=== PATIENT | female | born 1940 | race Caucasian/White ===

== ENCOUNTER → 2017-02-18 | Outpatient (CLI) | payer BC ==
[~2017-02-18] MED LIST: ASPI81TA28 PO; ATOR-14 PO; CYAN10005 PO; DIAZ2TAB PO; FLUV100T2 PO; HYDR12.55 PO; LACT12CR TOP; LEVO100T PO; LPT10 PO; LVX100 PO; MECL1TAB42 PO; MECL25TA2 PO; MELATAB2 PO; MELO7.5T5 PO; METF500T5 PO; METR0.754 TOP; MTRCR45 TOP; MULT60CA PO; ONDA4TAB46 SL; PROP80CA PO; PROP80TA2 PO; RSTOPS OP; ZOLP12.5 PO; ZOLP1TAB PO
[2017-02-18 11:46] LABS: ESTIMATED AVERAGE GLUCOSE 157 mg/dl; HA1C FLAG Normal (Normal)
[2017-02-18 12:07] LABS: BLOOD UREA NITROGEN 19 mg/dl (7-18); BUN/CREATININE RATIO 24.2 (10-20); CALCIUM 9.2 mg/dl (8.5-10.1); CARBON DIOXIDE 26 mmol/L (21-32); CHLORIDE 108 mmol/L (98-107); CHOLESTEROL 139 mg/dl (0-200); CREATININE 0.79 mg/dl (0.60-1.20); GLUCOSE 158 mg/dl (70-99); POTASSIUM 3.8 mmol/L (3.5-5.1); SODIUM 142 mmol/L (136-145)
[2017-02-18 12:20] LABS: CHOLESTEROL/HDL RATIO 2.9; HDL CHOLESTEROL 48 mg/dl; LDL CHOLESTEROL CALCULATED 62 mg/dl; THYROID STIMULATING HORMONE 0.169 uIu/ml (0.300-4.500); TRIGLYCERIDES 147 mg/dl (0-150); VERY LOW DENSITY LIPOPROT CALC 29 mg/dl
[2017-02-18 14:10] LABS: RATIO 9.9 mcg/mg (0-30.0)
== END | disposition home or self-care (01) ==
LOC: C.LABBC 09:07
PROVIDERS: ATTEND Internal Medicine
DX: E11.9 Type 2 diabetes mellitus without complications (principal); E78.5 Hyperlipidemia, unspecified; I10 Essential (primary) hypertension

== ENCOUNTER 2017-04-29 17:53 | Inpatient (IN) | payer BC, OTHER ==
[~2017-04-29] VITALS: Ht 157.5 cm; Wt 79.8 kg
[~2017-04-29 17:53] MED LIST changes: -LPT10 PO; -LVX100 PO; -MECL1TAB42 PO; -MELATAB2 PO; -MELO7.5T5 PO; -MTRCR45 TOP; -MULT60CA PO; -PROP80CA PO; -ZOLP1TAB PO
--- NOTE | 2017-04-29 18:03 | EMERGENCY ROOM VISIT NOTE ---
History Report prepared by Roland: Luis Collins Under the Supervision of: Dr. Cr Vann D.O. First contact with patient: 17:41 Chief Complaint: FALL Stated Complaint: FALL, WEAKNESS History of Present Illness The patient is a 76 year old female who presents to the Emergency Room with complaints of a sudden fall that occurred four days ago. She rates her pain as a 2/10 in severity. The patient is accompanied by her daughter who states that she has been falling recently. She states that the patient has been feeling weak in the legs, which causes her to fall. Her daughter states that she left her mother around 1600 four days ago. She states that she believes the patient fell some time around then. The patient states that she was unable to have the strength to get up. Her daughter states that her beeper and phone were not working. She reports that the patient has been crawling around the house and eventually got to a phone to call her daughter this afternoon. Her daughter states that the patient did not remember how she fell. Per EMS, the patient was found by the bathroom. The patient states that she was feeling "unsteady" and has been experiencing diarrhea up until the fall. She denies any discomfort, but believes she is experiencing mild lower back pain due to laying on the floor for four days. The patient denies taking any of her medication since the fall. She states that she typically urinates a lot. The patient admits to a history of macular degeneration, hernia, cholecystectomy, and digestion problems. She states that the hernia has not changed in size over time. The patient denies injury, new medications, blood thinners, tobacco or alcohol use, chest pain, and SOB. Source of History: patient Onset: four days ago Position: other (global) Symptom Intensity: 2/10 Quality: other (weak in legs) Timing: other (sudden) Associated Symptoms: + diarrhea, + weakness, No chest pain, No SOB Review of Systems See HPI for pertinent positives & negatives. A total of 10 systems reviewed and were otherwise negative. Past Medical & Surgical Medical Problems: (1) Arthritis (2) Cholecystitis (3) Hernia (4) Vertigo Surgical Problems: (1) H/O: hysterectomy (2) S/P cholecystectomy Family History Diabetes mellitus FH: cancer FH: heart disease Hypertension Seizures Social History Housing Status: lives alone Occupation Status: retired Current/Historical Medications Scheduled Aspirin (Aspirin Ec), 81 MG PO HS Atorvastatin (Atorvastatin Calcium), 10 MG PO DAILY Cyanocobalamin (Vitamin B-12), 1,000 MCG PO QAM Fluvoxamine Maleate (Fluvoxamine Maleate), 100 MG PO TID Hydrochlorothiazide (Hydrochlorothiazide), 12.5 MG PO QAM Levothyroxine Sodium (Synthroid), 100 MCG PO HS Metformin Hcl Er (Glucophage Er), 1,000 MG PO QAM Multiple Vitamins W/ Minerals (Preservision Areds 2), 1 CAP PO BID Propranolol Hcl (Propranolol Hcl Er), 80 MG PO HS Zolpidem Tartrate (Ambien Cr), 12.5 MG PO HS Scheduled PRN Diazepam (Valium), 2 MG PO BID PRN for VERTIGO/TREMORS Meclizine Hcl (Meclizine Hcl), 1 TAB PO TID PRN for Dizziness or Vertigo Meloxicam (Mobic), 7.5 MG PO DAILY PRN for Pain Metronidazole Hcl (Metronidazole), 1 APPLN TOP BID PRN for Allergies Coded Allergies: No Known Allergies (Unverified , 02/14/16) Physical Exam Vital Signs Date Time Temp Pulse Resp B/P (MAP) Pulse Ox O2 Delivery O2 Flow Rate FiO2 04/29/17 23:05 81 18 95 Room Air 04/29/17 22:32 76 04/29/17 21:52 75 18 152/73 98 Room Air 04/29/17 20:15 70 18 148/72 97 Room Air 04/29/17 19:32 65 20 140/73 96 Room Air 04/29/17 19:00 67 20 143/78 96 Room Air 04/29/17 17:55 36.6 72 20 145/72 96 Room Air 04/29/17 17:55 96 Room Air Physical Exam GENERAL: Patient is awake, alert, and in no acute distress. Patient is resting comfortably and showing no signs of anxiety EYES: The conjunctivae are clear. The pupils are round and reactive. EARS, NOSE, MOUTH AND THROAT: The nose is without any evidence of any deformity. Mucous membranes are dry tongue is midline NECK: The neck is nontender and supple. RESPIRATORY: Normal respiratory effort is noted there is no evidence of wheezing rhonchi or rales CARDIOVASCULAR: Regular rate and rhythm noted there no murmurs rubs or gallops normal S1 normal S2 GASTROINTESTINAL: Mildly distended but soft. There was a incisional hernia in light lower quadrant, easily reducible. No guard PELVIS: The Pelvis is stable. No tenderness to palpation is noted. BACK: Lower lumbar tenderness, Normal range of motion. MUSCULOSKELETAL/EXTREMITIES: No deformity or decrease in ROM of lower extremity. Ecchymosis of lateral left hip SKIN: There is no obvious evidence of any rash. There are no petechiae, pallor or cyanosis noted. NEUROLOGIC: Patient is awake alert and oriented x3 strength is symmetric but diminished. Medical Decision & Procedures ER Provider Diagnostic Interpretation: Radiology results as stated below per my review and radiologist interpretation: PELVIS 1 OR 2 VIEW ROUTINE CLINICAL HISTORY: fall. Left hip pain. COMPARISON STUDY: Left hip 10/12/2011. FINDINGS: Partially visualized lumbosacral posterior fusion hardware. No fracture or dislocation within the pelvis or hips. The sacrum appears intact. Soft tissues are unremarkable. IMPRESSION: No fracture or dislocation within the pelvis or hips. Electronically signed by: Onur Mckeon M.D. 04/29/2017 9:35 PM Dictated Date/Time: 04/29/2017 9:33 PM LUMBAR SPINE 5 VIEWS HISTORY: Back pain. fall COMPARISON: Lumbar spine 10/12/2011. FINDINGS: Posterior decompression fusion from L3 through S1 with pedicle screws and rods. The hardware appears intact. No fractures identified within the lumbar spine. Mild degenerative disc disease at L1-L2 and L2-L3 which has progressed. Mild anterior wedging within the superior endplate of the T12 vertebral body. This is consistent within age-indeterminate mild superior endplate compression fracture. No subluxation. Cholecystectomy. Old, healed left lower rib fractures. IMPRESSION: 1. Age-indeterminate mild superior endplate compression fracture at T12. 2. No acute fractures within the lumbar spine. 3. Postoperative changes as described above. 4. Mild degenerative disc disease at L1-L2 and L2-L3 which has progressed. Electronically signed by: Onur Mckeon M.D. 04/29/2017 9:37 PM Dictated Date/Time: 04/29/2017 9:35 PM HEAD WITHOUT CONTRAST (CT) CT DOSE: 1190.04 mGy.cm HISTORY: Mental status change EVALUATE ALTERED MENTAL STATUS/WEAKNESS TECHNIQUE: Multiaxial CT images of the head were performed without the use of intravenous contrast. A dose lowering technique was utilized adhering to the principles of ALARA. Comparison: 08/05/2007 Findings: The paranasal sinuses and mastoid air cells are clear. Mild cerebral atrophy. Moderate chronic small vessel change. 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 No acute intracranial hemorrhage. No midline shift. Impression: No acute intracranial abnormality. Chronic and small vessel change. The above report was generated using voice recognition software. It may contain grammatical, syntax or spelling errors. Electronically signed by: Pako Hernández M.D. 04/29/2017 7:30 PM Dictated Date/Time: 04/29/2017 7:28 PM CHEST 2 VIEWS ROUTINE HISTORY: WEAKNESS COMPARISON: Chest 08/17/2015. FINDINGS: The heart remains borderline enlarged. 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 Retrocardiac density is consistent with a small hiatus hernia. This is also unchanged. No pneumothorax. No pleural effusions. No new focal lung consolidations to suggest pneumonia. No evidence for pulmonary edema. IMPRESSION: No significant change compared to the prior study. No acute process. Electronically signed by: Onur Mckeon M.D. 04/29/2017 9:32 PM Dictated Date/Time: 04/29/2017 9:[address] DOSE: HISTORY: Cervical spine CT 08/05/2007. fall TECHNIQUE: Multiaxial CT images of the cervical spine were performed and reformatted in the sagittal and coronal plane without the use of contrast. A dose lowering technique was utilized adhering to the principles of ALARA. COMPARISON: None. FINDINGS: No fractures. Straightening of the cervical spine. There is 2 mm of anterolisthesis of C2 on C3 and C4 and C5. This is likely due to the long-standing degenerative change. There is severe disc space narrowing at C5-C6 and C6-C7. Posterior fusion defect at C1. Mild interlobular septal thickening and perihilar groundglass densities within the lungs. This favors mild pulmonary edema.. Moderate to space narrowing at C3-C4. Prevertebral soft tissues and the C1-C2 interval are intact. No pneumothorax. IMPRESSION: No fractures within the cervical spine. Degenerative changes as described above. Suspect mild pulmonary edema. Electronically signed by: Onur Mckeon M.D. 04/29/2017 7:36 PM Dictated Date/Time: 04/29/2017 7:29 PM Laboratory Results 04/29/17 18:24 Red Blood Count 4.35, Mean Corpuscular Volume 86.7, Mean Corpuscular Hemoglobin 27.6, Mean Corpuscular Hemoglobin Concent 31.8, Mean Platelet Volume 9.7, Neutrophils (%) (Auto) 66.7, Lymphocytes (%) (Auto) 14.5, Monocytes (%) (Auto) 15.3, Eosinophils (%) (Auto) 2.2, Basophils (%) (Auto) 0.2, Neutrophils # (Auto ) 6.13, Lymphocytes # (Auto) 1.33, Monocytes # (Auto) 1.40, Eosinophils # (Auto ) 0.20, Basophils # (Auto) 0.02 04/29/17 18:24 Test 04/29/17 18:07 04/29/17 18:24 Urine Color DK YELLOW Urine Appearance CLOUDY (CLEAR) Urine pH 6.0 (4.5-7.5) Urine Specific [place] 1.030 (1.000-1.030) Urine Protein TRACE (NEG) Urine Glucose (UA) NEG (NEG) Urine Ketones 1+ (NEG) Urine Occult Blood TRACE (NEG) Urine Nitrite NEG (NEG) Urine Bilirubin NEG (NEG) Urine Urobilinogen NEG (NEG) Urine Leukocyte Esterase NEG (NEG) Urine WBC (Auto) 1-5 /hpf (0-5) Urine RBC (Auto) 5-10 /hpf (0-4) Urine Hyaline Casts (Auto) >30 /lpf (0-5) Urine Epithelial Cells (Auto) >30 /lpf (0-5) Urine Bacteria (Auto) NEG (NEG) Urine Renal Epithelial Cells 0-5 /lpf (0-5) Urine Pathogenic Casts 0-3 GRANULAR CASTS /lpf (0) White Blood Count 9.18 K/uL (4.8-10.8) Red Blood Count 4.35 M/uL (4.2-5.4) Hemoglobin 12.0 g/dL (12.0-16.0) Hematocrit 37.7 % (37-47) Mean Corpuscular Volume 86.7 fL (80-100) Mean Corpuscular Hemoglobin 27.6 pg (25-34) Mean Corpuscular Hemoglobin Concent 31.8 g/dl (32-36) Platelet Count 492 K/uL (130-400) Mean Platelet Volume 9.7 fL (7.4-10.4) Neutrophils (%) (Auto) 66.7 % Lymphocytes (%) (Auto) 14.5 % Monocytes (%) (Auto) 15.3 % Eosinophils (%) (Auto) 2.2 % Basophils (%) (Auto) 0.2 % Neutrophils # (Auto) 6.13 K/uL (1.4-6.5) Lymphocytes # (Auto) 1.33 K/uL (1.2-3.4) Monocytes # (Auto) 1.40 K/uL (0.11-0.59) Eosinophils # (Auto) 0.20 K/uL (0-0.5) Basophils # (Auto) 0.02 K/uL (0-0.2) RDW Standard Deviation 46.9 fL (36.4-46.3) RDW Coefficient of Variation 14.9 % (11.5-14.5) Immature Granulocyte % (Auto) 1.1 % Immature Granulocyte # (Auto) 0.10 K/uL (0.00-0.02) Prothrombin Time 11.2 SECONDS (9.0-12.0) Prothromb Time International Ratio 1.0 (0.9-1.1) Activated Partial Thromboplast Time 29.9 SECONDS (21.0-31.0) Partial Thromboplastin Ratio 1.2 Anion Gap 6.0 mmol/L (3-11) Est Creatinine Clear Calc Drug Dose 86.4 ml/min Estimated GFR () 106.2 Estimated GFR (Non- 91.7 BUN/Creatinine Ratio 25.3 (10-20) Calcium Level 8.2 mg/dl (8.5-10.1) Phosphorus Level 1.8 mg/dl (2.5-4.9) Magnesium Level 2.0 mg/dl (1.8-2.4) Total Bilirubin 0.5 mg/dl (0.2-1) Direct Bilirubin 0.2 mg/dl (0-0.2) Aspartate Amino Transf (AST/SGOT) 27 U/L (15-37) Alanine Aminotransferase (ALT/SGPT) 40 U/L (12-78) Alkaline Phosphatase 126 U/L (45-117) Total Creatine Kinase 120 U/L (26-192) Creatine Kinase MB 2.3 ng/ml (0.5-3.6) Creatine Kinase MB Ratio 1.9 (0-3.0) Troponin I < 0.015 ng/ml (0-0.045) Pro-B-Type Natriuretic Peptide 254 pg/ml (0-1800) Total Protein 6.3 gm/dl (6.4-8.2) Albumin 2.0 gm/dl (3.4-5.0) Lipase 81 U/L (73-393) Thyroid Stimulating Hormone (TSH) 0.980 uIu/ml (0.300-4.500) Free Thyroxine 1.15 ng/dl (0.80-1.60) Laboratory results per my review. Medications Administered Medications (Trade) Dose Ordered Sig/Tiffanie Route Start Time Stop Time Status Last Admin Dose Admin Sodium Chloride 1,000 ml @ 999 mls/hr Q1H1M STAT IV 04/29/17 18:10 04/29/17 19:10 DC 04/29/17 18:10 999 MLS/HR Diazepam (Valium Tab) 2 mg NOW STAT PO 04/29/17 21:09 04/29/17 21:10 DC 04/29/17 21:50 2 MG ECG Indication: weakness Rate (beats per minute): 73 Rhythm: normal sinus Findings: no ectopy, other (No acute ST segments) Comparison ECG Date: 08/17/15 Change: no significant change ED Course 1801: The patient was evaluated in room C02B. A complete history and physical examination were performed. 1809: Ordered Sodium Chloride 1000 ml @ 999 mls/hr IV. 2108: Ordered Valium Tab 2 mg PO. 2143: I reevaluated the patient and she is doing well. 2147: I discussed the patient's case with Dr. Mayes, [facility] Hospitalist. He understands the patient's condition and agrees to accept the patient. The patient will be further evaluated. Medical Decision The differential diagnosis includes etiologies such as metabolic, infection, hypo/hyperglycemia, electrolyte abnormalities, cardiac sources, intracerebral event, toxicologic, neurologic, as well as others were entertained. Nursing notes reviewed. Further history was obtained from the patient's daughter. The patient is a 76-year-old female who presented to the emergency department for an evaluation after she was on the floor in her home. The patient suffered a fall and was having significant weakness and could not stand after the fall. The patient recently had a diarrheal illness. She felt that she was dehydrated. She was very weak. She started taking Lomotil feels that she had a fall last and was unable to stand afterwards. The patient did not have any complaints of trauma but did have a contusion over her left hip. I discussed the patient's laboratory and radiographic studies with her. She was treated with IV fluids in the emergency department. I evaluated the patient multiple times. The daughter was very concerned because the patient lives alone. This reason I discussed her case with the emergency Department caser shoe [employer]. At this time I feel the patient would be safer to observe him in the hospital and have a formal evaluation by occupational therapy and physical therapy to determine the proper level of care the patient will require moving forward. This reason I discussed his case with the on-call [facility] hospitalist. They've agreed to evaluate the patient in the emergency department and disposition. Medication Reconcilliation Current Medication List: was personally reviewed by me Blood Pressure Screening Patient's blood pressure: Elevated blood pressure Referred to Hospitalist. Consults Time Called: 2146 Consulting Physician: Dr. Mayes, [facility] Hospitalist Returned Call: 2147 I discussed the patient's case with Dr. Mayes, [facility] Hospitalist. He understands the patient's condition and agrees to accept the patient. The patient will be further evaluated. Impression Primary Impression: Fall Additional Impressions: Generalized weakness Dehydration Lumbar contusion Contusion of left hip Scribe Attestation The scribe's documentation has been prepared under my direction and personally reviewed by me in its entirety. I confirm that the note above accurately reflects all work, treatment, procedures, and medical decision making performed by me. Departure Information Dispostion Being Evaluated By Hospitalist Patient Instructions [facility] Problem Qualifiers Primary Impression: Fall Encounter type: initial encounter Qualified Codes: W19.XXXA - Unspecified fall, initial encounter Additional Impressions: Lumbar contusion Encounter type: initial encounter Qualified Codes: S30.0XXA - Contusion of lower back and pelvis, initial encounter Contusion of left hip Encounter type: initial encounter Qualified Codes: S70.02XA - Contusion of left hip, initial encounter
[2017-04-29] MEDS ORDERED: SODIUM CHLORIDE 0.9% 1000ML 1,000 ML IV STA (18:10)
[2017-04-29] MEDS ORDERED: MULT60CA PO (18:38)
[2017-04-29] MEDS ORDERED: MECL1TAB42 PO (18:38)
[2017-04-29] MEDS ORDERED: MELO7.5T5 PO (18:38)
[2017-04-29] MEDS ORDERED: MTRCR45 TOP (18:38)
[2017-04-29] MEDS ORDERED: LPT10 PO (18:38)
[2017-04-29] MEDS ORDERED: LVX100 PO (18:38)
[2017-04-29] MEDS ORDERED: PROP80CA PO (18:38)
[2017-04-29 18:43] LABS: BASO % 0.2 %; BASO ABS # 0.02 K/uL (0-0.2); COMPLETE YES; EOS % 2.2 %; HEMATOCRIT 37.7 % (37-47); IG% 1.1 %; LYMPH % 14.5 %; LYMPH ABS # 1.33 K/uL (1.2-3.4); MEAN CELL VOLUME 86.7 fL (80-100); MEAN CORPUSCULAR HEMOGLOBIN 27.6 pg (25-34); MEAN CORPUSCULAR HGB CONC 31.8 g/dl (32-36); MEAN PLATELET VOLUME 9.7 fL (7.4-10.4); MONO % 15.3 %; NEUT % 66.7 %; PLATELET COUNT 492 K/uL (130-400); RED BLOOD COUNT 4.35 M/uL (4.2-5.4); WHITE BLOOD COUNT 9.18 K/uL (4.8-10.8)
[2017-04-29 18:53] LABS: URINE APPEARANCE CLOUDY (CLEAR); URINE COLOR DK YELLOW; URINE EPITHELIAL CELL AUTO >30 /lpf (0-5); URINE NITRITE NEG (NEG); UROBILINOGEN NEG (NEG)
[2017-04-29 18:55] LABS: PARTIAL THROMBOPLASTIN RATIO 1.2; PROTHROMBIN TIME (PATIENT) 11.2 SECONDS (9.0-12.0)
[2017-04-29 18:56] LABS: MANUAL MICROSCOPIC REQUIRED? NO; REVIEW REQ? YES
[2017-04-29 18:58] LABS: URINE BILIRUBIN NEG (NEG)
[2017-04-29 19:06] LABS: URINE PATH CASTS 0-3 GRANULAR CASTS /lpf (0)
[2017-04-29 19:10] LABS: ALT/SGPT 40 U/L (12-78); AST/SGOT 27 U/L (15-37); BLOOD UREA NITROGEN 14 mg/dl (7-18); BUN/CREATININE RATIO 25.3 (10-20); CALCIUM 8.2 mg/dl (8.5-10.1); CARBON DIOXIDE 26 mmol/L (21-32); CHLORIDE 108 mmol/L (98-107); CREATININE 0.54 mg/dl (0.60-1.20); GLUCOSE 109 mg/dl (70-99); PHOSPHORUS 1.8 mg/dl (2.5-4.9); POTASSIUM 3.2 mmol/L (3.5-5.1); SODIUM 140 mmol/L (136-145)
[2017-04-29 19:16] LABS: ALKALINE PHOSPHATASE 126 U/L (45-117); CKMB/CK RATIO 1.9 (0-3.0)
--- NOTE | 2017-04-29 19:31 | DIAGNOSTIC IMAGING REPORT ---
HEAD WITHOUT CONTRAST (CT) CT DOSE: 1190.04 mGy.cm HISTORY: Mental status change EVALUATE ALTERED MENTAL STATUS/WEAKNESS TECHNIQUE: Multiaxial CT images of the head were performed without the use of intravenous contrast. A dose lowering technique was utilized adhering to the principles of ALARA. Comparison: 08/05/2007 Findings: The paranasal sinuses and mastoid air cells are clear. Mild cerebral atrophy. Moderate chronic small vessel change. 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 No acute intracranial hemorrhage. No midline shift. Impression: No acute intracranial abnormality. Chronic and small vessel change. The above report was generated using voice recognition software. It may contain grammatical, syntax or spelling errors. Electronically signed by: Pako Hernández M.D. 04/29/2017 7:30 PM Dictated Date/Time: 04/29/2017 7:28 PM
--- NOTE | 2017-04-29 19:37 | DIAGNOSTIC IMAGING REPORT ---
CERVICAL SPINE CT CT DOSE: HISTORY: Cervical spine CT 08/05/2007. fall TECHNIQUE: Multiaxial CT images of the cervical spine were performed and reformatted in the sagittal and coronal plane without the use of contrast. A dose lowering technique was utilized adhering to the principles of ALARA. COMPARISON: None. FINDINGS: No fractures. Straightening of the cervical spine. There is 2 mm of anterolisthesis of C2 on C3 and C4 and C5. This is likely due to the long-standing degenerative change. There is severe disc space narrowing at C5-C6 and C6-C7. Posterior fusion defect at C1. Mild interlobular septal thickening and perihilar groundglass densities within the lungs. This favors mild pulmonary edema.. Moderate to space narrowing at C3-C4. Prevertebral soft tissues and the C1-C2 interval are intact. No pneumothorax. IMPRESSION: No fractures within the cervical spine. Degenerative changes as described above. Suspect mild pulmonary edema. Electronically signed by: Onur Mckeon M.D. 04/29/2017 7:36 PM Dictated Date/Time: 04/29/2017 7:29 PM
[2017-04-29] MEDS ORDERED: DIAZEPAM 5MG TAB PO STA (20:54)
[2017-04-29] MEDS ORDERED: DIAZEPAM 2MG TAB PO STA (21:09)
--- NOTE | 2017-04-29 21:34 | DIAGNOSTIC IMAGING REPORT ---
CHEST 2 VIEWS ROUTINE HISTORY: WEAKNESS COMPARISON: Chest 08/17/2015. FINDINGS: The heart remains borderline enlarged. 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 Retrocardiac density is consistent with a small hiatus hernia. This is also unchanged. No pneumothorax. No pleural effusions. No new focal lung consolidations to suggest pneumonia. No evidence for pulmonary edema. IMPRESSION: No significant change compared to the prior study. No acute process. Electronically signed by: Onur Mckeon M.D. 04/29/2017 9:32 PM Dictated Date/Time: 04/29/2017 9:30 PM
--- NOTE | 2017-04-29 21:36 | DIAGNOSTIC IMAGING REPORT ---
PELVIS 1 OR 2 VIEW ROUTINE CLINICAL HISTORY: fall. Left hip pain. COMPARISON STUDY: Left hip 10/12/2011. FINDINGS: Partially visualized lumbosacral posterior fusion hardware. No fracture or dislocation within the pelvis or hips. The sacrum appears intact. Soft tissues are unremarkable. IMPRESSION: No fracture or dislocation within the pelvis or hips. Electronically signed by: Onur Mckeon M.D. 04/29/2017 9:35 PM Dictated Date/Time: 04/29/2017 9:33 PM
--- NOTE | 2017-04-29 21:38 | DIAGNOSTIC IMAGING REPORT ---
LUMBAR SPINE 5 VIEWS HISTORY: Back pain. fall COMPARISON: Lumbar spine 10/12/2011. FINDINGS: Posterior decompression fusion from L3 through S1 with pedicle screws and rods. The hardware appears intact. No fractures identified within the lumbar spine. Mild degenerative disc disease at L1-L2 and L2-L3 which has progressed. Mild anterior wedging within the superior endplate of the T12 vertebral body. This is consistent within age-indeterminate mild superior endplate compression fracture. No subluxation. Cholecystectomy. Old, healed left lower rib fractures. IMPRESSION: 1. Age-indeterminate mild superior endplate compression fracture at T12. 2. No acute fractures within the lumbar spine. 3. Postoperative changes as described above. 4. Mild degenerative disc disease at L1-L2 and L2-L3 which has progressed. Electronically signed by: Onur Mckeon M.D. 04/29/2017 9:37 PM Dictated Date/Time: 04/29/2017 9:35 PM
--- NOTE | 2017-04-29 23:27 | History and Physical ---
History & Physical Date & Time of Service: Apr 29, 2017 at 23:10 Chief Complaint: Fall, Weakness Primary Care Physician: Cr Cantu M.D. History of Present Illness Source: patient Mrs Gomez is a 76 year old female who presents to the ER after falling 4-5 days ago. She cannot remember the fall itself but has been unable to get up off of the floor and had nothing to eat or drink for all that time spent on the floor. She has a lifeline but is had run out of batteries. She eventually made it to a phone and called her daughter who called for an ambulance and brought her to the ER. Apart from a bruise on her left lateral hip she otherwise denies any other injuries but has not been walking since the fall. She denies any current chest pain, shortness of breath, back pain, muscle or joint pains. She had been having 2-3 days of diarrhea before the fall, no light headedness that she knows about and none currently. She has longstanding intermittent vertigo for which she takes meclizine but cannot remember if she had an episode before her fall, she denies any currently. She was last seen by her caregivers on afternoon but the timeline after this is unclear. She recently has been falling with increased frequency over the last 1-4 months. She puts this down to her legs becoming extremely weak when she walks and giving way. She denies any pain or numbness in her legs or back. She has also been having increasing urinary and bowel incontinence over the last 3-6 months. After falling she can usually get up but her legs were too weak after falling this time. She reports having similar symptoms before having her multilevel decompression and fusion and subsequent epidural fluid collection. Past Medical/Surgical History Medical Problems: (1) Arthritis Status: Chronic (2) Hernia Status: Resolved (3) Vertigo Status: Chronic Surgical Problems: (1) H/O: hysterectomy Status: Resolved (2) S/P cholecystectomy Status: Resolved Family History Diabetes mellitus FH: cancer FH: heart disease Hypertension Seizures Social History Smoking Status: Never Smoker Marital Status: Occupational Status: retired Immunizations History of Influenza Vaccine: Yes History of Tetanus Vaccine?: Yes History of Pneumococcal: Yes Pneumococcal Date: Sep 05, 2013 History of Hepatitis B Vaccine: No Multi-Drug Resistant Organisms History of MDRO: No Allergies Coded Allergies: No Known Allergies (Unverified , 02/14/16) Home Medications Scheduled Aspirin (Aspirin Ec), 81 MG PO HS Atorvastatin (Atorvastatin Calcium), 10 MG PO DAILY Cyanocobalamin (Vitamin B-12), 1,000 MCG PO QAM Fluvoxamine Maleate (Fluvoxamine Maleate), 100 MG PO TID Hydrochlorothiazide (Hydrochlorothiazide), 12.5 MG PO QAM Levothyroxine Sodium (Synthroid), 100 MCG PO HS Metformin Hcl Er (Glucophage Er), 1,000 MG PO QAM Multiple Vitamins W/ Minerals (Preservision Areds 2), 1 CAP PO BID Propranolol Hcl (Propranolol Hcl Er), 80 MG PO HS Zolpidem Tartrate (Ambien Cr), 12.5 MG PO HS Scheduled PRN Diazepam (Valium), 2 MG PO BID PRN for VERTIGO/TREMORS Meclizine Hcl (Meclizine Hcl), 1 TAB PO TID PRN for Dizziness or Vertigo Meloxicam (Mobic), 7.5 MG PO DAILY PRN for Pain Metronidazole Hcl (Metronidazole), 1 APPLN TOP BID PRN for Review of Systems Constitutional: + weakness, No fever, No chills, No sweats Eyes: No worsening of vision, No eye pain ENT: No hearing loss, No nasal symptoms, No sore throat Respiratory: No cough, No sputum, No wheezing, No shortness of breath Cardiovascular: No chest pain, No edema, No palpitations Abdomen: + diarrhea (before the fall), No pain, No nausea, No vomiting, No constipation, No GI bleeding Musculoskeletal: No joint pain, No muscle pain, No swelling, No calf pain Genitourinary - Female: No dysuria, No urinary frequency, No urinary urgency, No urinary incontinence, No urinary retention Neurologic: + memory loss, + weakness, + balance problems, No numbness/tingling , No vertigo (currently) Endocrine: + fatigue, No excessive thirst, No excessive urination Hematologic / Lymphatic: No abnormal bleeding/bruising Integumentary: No rash, No itch, No bleeding Physical Exam Vital Signs Date Time Temp Pulse Resp B/P (MAP) Pulse Ox O2 Delivery O2 Flow Rate FiO2 04/29/17 23:05 81 18 95 Room Air 04/29/17 22:32 76 04/29/17 21:52 75 18 152/73 98 Room Air 04/29/17 20:15 70 18 148/72 97 Room Air 04/29/17 19:32 65 20 140/73 96 Room Air 04/29/17 19:00 67 20 143/78 96 Room Air 04/29/17 17:55 36.6 72 20 145/72 96 Room Air 04/29/17 17:55 96 Room Air General Appearance: no apparent distress, + obese Head: normocephalic, atraumatic Eyes: normal inspection, PERRL, EOMI ENT: + pertinent finding (dry mucus membranes) Neck: supple, no adenopathy, no JVD, no carotid bruits, trachea midline Respiratory/Chest: chest non-tender, no respiratory distress, no accessory muscle use, + decreased breath sounds (at bases with fine crackles b/l) Cardiovascular: regular rate, rhythm, no edema, no murmur, normal peripheral pulses Abdomen/GI: normal bowel sounds, soft, + tenderness (right sided over her hernia (chronic pain only on palpation without rebound tenderness)) Back: no CVA tenderness Extremities/Musculoskelatal: no calf tenderness, normal capillary refill, no pedal edema 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, no motor/sensory deficits ( cerebellar testing in addition was normal, gait was not assessed, hip flexion weakness bilaterally but otherwise objective power appears intact), alert, oriented x 3, + pertinent finding Skin: normal color, warm/dry, no rash Diagnostics Laboratory Results Results Past 24 Hours Test 04/29/17 18:07 04/29/17 18:24 Range/Units Urine Color DK YELLOW Urine Appearance CLOUDY CLEAR Urine pH 6.0 4.5-7.5 Urine Specific [place] 1.030 1.000-1.030 Urine Protein TRACE NEG Urine Glucose (UA) NEG NEG Urine Ketones 1+ NEG Urine Occult Blood TRACE NEG Urine Nitrite NEG NEG Urine Bilirubin NEG NEG Urine Urobilinogen NEG NEG Urine Leukocyte Esterase NEG NEG Urine WBC (Auto) 1-5 0-5 /hpf Urine RBC (Auto) 5-10 0-4 /hpf Urine Hyaline Casts (Auto) >30 0-5 /lpf Urine Epithelial Cells (Auto) >30 0-5 /lpf Urine Bacteria (Auto) NEG NEG Urine Renal Epithelial Cells 0-5 0-5 /lpf Urine Pathogenic Casts 0-3 GRANULAR CASTS 0 /lpf White Blood Count 9.18 4.8-10.8 K/uL Red Blood Count 4.35 4.2-5.4 M/uL Hemoglobin 12.0 12.0-16.0 g/dL Hematocrit 37.7 37-47 % Mean Corpuscular Volume 86.7 80-100 fL Mean Corpuscular Hemoglobin 27.6 25-34 pg Mean Corpuscular Hemoglobin Concent 31.8 32-36 g/dl Platelet Count 492 130-400 K/uL Mean Platelet Volume 9.7 7.4-10.4 fL Neutrophils (%) (Auto) 66.7 % Lymphocytes (%) (Auto) 14.5 % Monocytes (%) (Auto) 15.3 % Eosinophils (%) (Auto) 2.2 % Basophils (%) (Auto) 0.2 % Neutrophils # (Auto) 6.13 1.4-6.5 K/uL Lymphocytes # (Auto) 1.33 1.2-3.4 K/uL Monocytes # (Auto) 1.40 0.11-0.59 K/uL Eosinophils # (Auto) 0.20 0-0.5 K/uL Basophils # (Auto) 0.02 0-0.2 K/uL RDW Standard Deviation 46.9 36.4-46.3 fL RDW Coefficient of Variation 14.9 11.5-14.5 % Immature Granulocyte % (Auto) 1.1 % Immature Granulocyte # (Auto) 0.10 0.00-0.02 K/uL Prothrombin Time 11.2 9.0-12.0 SECONDS Prothromb Time International Ratio 1.0 0.9-1.1 Activated Partial Thromboplast Time 29.9 21.0-31.0 SECONDS Partial Thromboplastin Ratio 1.2 Sodium Level 140 136-145 mmol/L Potassium Level 3.2 3.5-5.1 mmol/L Chloride Level 108 98-107 mmol/L Carbon Dioxide Level 26 21-32 mmol/L Anion Gap 6.0 3-11 mmol/L Blood Urea Nitrogen 14 7-18 mg/dl Creatinine 0.54 0.60-1.20 mg/dl Est Creatinine Clear Calc Drug Dose 86.4 ml/min Estimated GFR () 106.2 Estimated GFR (Non- 91.7 BUN/Creatinine Ratio 25.3 10-20 Random Glucose 109 70-99 mg/dl Calcium Level 8.2 8.5-10.1 mg/dl Phosphorus Level 1.8 2.5-4.9 mg/dl Magnesium Level 2.0 1.8-2.4 mg/dl Total Bilirubin 0.5 0.2-1 mg/dl Direct Bilirubin 0.2 0-0.2 mg/dl Aspartate Amino Transf (AST/SGOT) 27 15-37 U/L Alanine Aminotransferase (ALT/SGPT) 40 12-78 U/L Alkaline Phosphatase 126 45-117 U/L Total Creatine Kinase 120 26-192 U/L Creatine Kinase MB 2.3 0.5-3.6 ng/ml Creatine Kinase MB Ratio 1.9 0-3.0 Troponin I < 0.015 0-0.045 ng/ml Pro-B-Type Natriuretic Peptide 254 0-1800 pg/ml Total Protein 6.3 6.4-8.2 gm/dl Albumin 2.0 3.4-5.0 gm/dl Lipase 81 73-393 U/L Thyroid Stimulating Hormone (TSH) 0.980 0.300-4.500 uIu/ml Free Thyroxine 1.15 0.80-1.60 ng/dl Microbiology Results 04/29/17 Urine Culture, Received Pending Diagnostic Radiology PELVIS 1 OR 2 VIEW ROUTINE IMPRESSION: No fracture or dislocation within the pelvis or hips. LUMBAR SPINE 5 VIEWS IMPRESSION: 1. Age-indeterminate mild superior endplate compression fracture at T12. 2. No acute fractures within the lumbar spine. 3. Postoperative changes as described above. 4. Mild degenerative disc disease at L1-L2 and L2-L3 which has progressed. HEAD WITHOUT CONTRAST (CT) Impression: No acute intracranial abnormality. Chronic and small vessel change. CHEST 2 VIEWS ROUTINE IMPRESSION: No significant change compared to the prior study. No acute process. CERVICAL SPINE CT IMPRESSION: No fractures within the cervical spine. Degenerative changes as described above. Suspect mild pulmonary edema. EKG Rate 73 bpm Normal Sinus Rhythm Slight flattening of T wave in lateral leads compared to previous EKG from 17 August 2015 Impression Assessment and Plan 76yo F presents with fall within the last 4-5 days and unable to get up, eat or drink after. Fall - cause unclear; therefore she will be monitored in telemetry for arrhythmias, possible orthostasis given antihypertensives and recent diarrhea vs. vertigo vs. progressive leg weakness (see below) - hold antihypertensives for now, orthostatics when she starts to ambulate - meclizine for vertigo PRN - injuries from fall - no # from imaging or suggested on examination of back, wrist, hips or knees. Mild bruising over her left hip only. No rhabdomyolysis Hypokalemia - replace in IV fluids: 2L NSS + 40meq KCl 100 MLS/HR Hypophosphatemia - likely related to diarrhea. Hold replacement for now and trend. Will replace if continues to remain low. Progressive leg weakness with urine and bowel incontinence - given subacute presentation over the course of months I do not see a need to emergently get an MRI overnight however will treat with Decadron and get MRI in the morning. - MRI lumbar spine combo - consult ortho (Dr Cavanaugh) given previous symptoms when she had an epidural fluid collection. Rehabilitation - PT, OT, rehab VTE Prophylaxis - heparin 5000 units daily SQ Code - Full as per patient wishes Disposition - admit to telemetry to monitor for arrhythmia that may have lead to her fall. PT/OT/discharge planning. Will likely need rehabilitation. 76 y/o F HTN, HPL, DM - pt had fallen - possibly as long as 4 days prior and was not able to get up. She had diarrhea for 3 days prior to falling - this has apparently resolved. She has a history of lumbar stenosis and complained of back pain on arrival however, she feels that this was due to lying on the floor and not inherently worsening, Her CK is WNL, she was able to ambulate with her walker so the above timeframe may not be accurate. OE Pleasant elderly F - no distress AAO x 2 S1,2 R CTAB NT, ND Strength is good in the distal LEs and sensation is intact - there may be some mild proximal weakness P: She had received a dose of Decadron in ER which may have skewed eval - would not provide additional doses for now She will be evaluated by her orthopedist and then PT/OT as she is requesting placement at [facility] Placed on SS - no additional med changes Above discussed with pt and resident Level of Care Telemetry Resuscitation Status FULL RESUSCITATION VTE Prophylaxis VTE Risk Assessment Done? Y/N: Yes Risk Level: Moderate Given or contraindicated: Enoxaparin (Lovenox)SQ Additional Copies To Cr Cantu M.D. Resident Tracking Resident Involvement: Resident Care Provided Care Provided: [facility]
[2017-04-30] VITALS (8 sets, daily range): BP systolic 110–165; BP diastolic 66–78; PULSE 60–82; TEMP 36.4–38.3; O2SAT 90–95; Ht 157.5 cm; Wt 79.8 kg
[2017-04-30] MEDS ORDERED: ONDANSETRON INJ 2 MG/ML 2 ML VIAL IV PRN (00:15)
[2017-04-30] MEDS ORDERED: MECLIZINE HCL 25 MG TAB PO PRN (00:30)
[2017-04-30] MEDS ORDERED: MELOXICAM 7.5 MG TAB PO PRN (00:30)
[2017-04-30] MEDS ORDERED: DEXAMETHASONE SOD INJ 10 MG/ML VIAL IV ONE (01:45)
[2017-04-30] MEDS ORDERED: DEXAMETHASONE INJ 10 MG in SYRINGE 0 ML IV ONE (02:15)
[2017-04-30] MEDS: POTASSIUM CHLORIDE INJ 40 MEQ in SODIUM CHLORIDE 0.9% 1000ML 1,000 ML IV SCH ×2 (02:32→12:11)
[2017-04-30 06:16] LABS: BASO % 0.2 %; BASO ABS # 0.02 K/uL (0-0.2); COMPLETE YES; EOS % 0.8 %; HEMATOCRIT 36.4 % (37-47); IG% 1.1 %; LYMPH % 5.3 %; LYMPH ABS # 0.44 K/uL (1.2-3.4); MEAN CELL VOLUME 85.2 fL (80-100); MEAN CORPUSCULAR HEMOGLOBIN 28.1 pg (25-34); MEAN PLATELET VOLUME 9.6 fL (7.4-10.4); MONO % 5.7 %; NEUT % 86.9 %; PLATELET COUNT 482 K/uL (130-400); RED BLOOD COUNT 4.27 M/uL (4.2-5.4); WHITE BLOOD COUNT 8.28 K/uL (4.8-10.8)
[2017-04-30 06:57] LABS: ALB/GLOB RATIO 0.4 (0.9-2); CALCIUM 8.6 mg/dl (8.5-10.1); CREATININE 0.52 mg/dl (0.60-1.20); MAGNESIUM 1.9 mg/dl (1.8-2.4); PHOSPHORUS 2.5 mg/dl (2.5-4.9); POTASSIUM 3.6 mmol/L (3.5-5.1)
[2017-04-30] MEDS: LEVOTHYROXINE 100 MCG TAB PO SCH (07:08)
[2017-04-30] MEDS: ENOXAPARIN 40 MG/0.4 ML SYR SC SCH (07:34)
[2017-04-30] MEDS: CYANOCOBALAMIN 500 MCG TAB (VIT B-12) PO SCH (07:38)
[2017-04-30] MEDS: ATORVASTATIN 10 MG TAB PO SCH (07:38)
[2017-04-30] MEDS ORDERED: METFORMIN HCL 500 MG TABCR PO SCH (08:00)
--- NOTE | 2017-04-30 08:16 | Family Medicine Progress Note ---
Progress Note Date of Service Apr 30, 2017. Subjective Pt evaluation today including: conversation w/ patient, conversation w/ family , physical exam, chart review, lab review, review of studies Found pt sitting on side of bed, pleasantly conversing, without acute concerns. Says she very much wants to go to [facility] for further rehab. Has some baseline RLQ pain (hx three local hernias) but nothing new in past few days. Says last episode of diarrhea was about two days ago. Reports hx of more frequent N/V/D over > 1 month, unclear cause. Has hx of falls, some seem more spontaneous, others due to quick turning. Gets vertiginous with sudden head movements, resolves with staying still. Says her left hip is a little sore at site of contusion s/p most recent fall. Denies CP, SOB, or other acute c/o. Constitutional: No fever Respiratory: No cough, No shortness of breath Cardiovascular: No chest pain Abdomen: + pain, + nausea, + vomiting, + diarrhea Musculoskeletal: + swelling Neurologic: + vertigo Skin: + color change (contusion) Medications Current Inpatient Medications Medications (Trade) Dose Ordered Sig/Tiffanie Route Start Time Stop Time Status Last Admin Dose Admin Enoxaparin Sodium (Lovenox Inj) 40 mg Q24H SC 04/30/17 08:00 05/30/17 07:59 04/30/17 07:34 40 MG Acetaminophen (Tylenol Tab) 650 mg Q4H PRN PO 04/30/17 00:15 05/30/17 00:14 Ondansetron HCl (Zofran Inj) 4 mg Q6H PRN IV 04/30/17 00:15 05/30/17 00:14 Potassium Chloride 40 meq/ Sodium Chloride 1,020 ml @ 100 mls/hr [id number] IV 04/30/17 02:00 04/30/17 22:23 04/30/17 02:32 100 MLS/HR Aspirin (Ecotrin Tab) 81 mg HS PO 04/30/17 21:00 05/30/17 20:59 Atorvastatin Calcium (Lipitor Tab) 10 mg DAILY PO 04/30/17 09:00 05/30/17 08:59 04/30/17 07:38 10 MG Cyanocobalamin (Vitamin B-12 Tab) 1,000 mcg QAM PO 04/30/17 09:00 05/30/17 08:59 04/30/17 07:38 1,000 MCG Levothyroxine Sodium (Synthroid Tab) 100 mcg DAILYBB PO 04/30/17 06:30 05/30/17 06:29 04/30/17 07:08 100 MCG Meclizine HCl (Antivert Tab) 25 mg TID PRN PO 04/30/17 00:30 05/30/17 00:29 Meloxicam (Mobic Tab) 7.5 mg DAILY PRN PO 04/30/17 00:30 05/30/17 00:29 Zolpidem Tartrate (Ambien Tab) 5 mg HS PRN PO 04/30/17 00:30 05/30/17 00:29 Insulin Aspart (novoLOG ASPART) SLIDING SCALE G... ACHS SC 04/30/17 11:00 05/30/17 10:59 Gadobutrol (Gadavist) 7.5 mmol UD PRN IV 04/30/17 09:00 05/04/17 08:59 UNV Objective Vital Signs Date Time Temp Pulse Resp B/P (MAP) Pulse Ox O2 Delivery O2 Flow Rate FiO2 04/30/17 08:00 Room Air 04/30/17 07:22 36.7 80 18 115/66 (82) 90 04/30/17 04:15 37.0 77 16 131/76 (94) 93 04/30/17 04:00 Room Air 04/30/17 01:20 38.3 82 18 117/74 (88) 93 Room Air 04/30/17 01:20 38.3 82 18 117/74 Room Air 04/30/17 01:06 36.6 87 16 142/68 98 04/30/17 00:40 87 16 142/68 98 Room Air 04/29/17 23:05 81 18 95 Room Air 04/29/17 22:32 76 04/29/17 21:52 75 18 152/73 98 Room Air 04/29/17 20:15 70 18 148/72 97 Room Air 04/29/17 19:32 65 20 140/73 96 Room Air 04/29/17 19:00 67 20 143/78 96 Room Air 04/29/17 17:55 36.6 72 20 145/72 96 Room Air 04/29/17 17:55 96 Room Air Physical Exam General Appearance: no apparent distress Respiratory/Chest: lungs clear, normal breath sounds Cardiovascular: regular rate, rhythm, no murmur Abdomen: normal bowel sounds, soft, + tenderness (over RLQ hernia sites), + pertinent finding (not otherwise distended or tendeer) Neurologic/Psychiatric: + pertinent finding (Strength 5/5 in (B)LE) Skin: + pertinent finding (contusion to left hip) Laboratory Results 04/30/17 05:52 Red Blood Count 4.27, Mean Corpuscular Volume 85.2, Mean Corpuscular Hemoglobin 28.1, Mean Corpuscular Hemoglobin Concent 33.0, Mean Platelet Volume 9.6, Neutrophils (%) (Auto) 86.9, Lymphocytes (%) (Auto) 5.3, Monocytes (%) (Auto) 5.7, Eosinophils (%) (Auto) 0.8, Basophils (%) (Auto) 0.2, Neutrophils # (Auto) 7.19, Lymphocytes # (Auto) 0.44, Monocytes # (Auto) 0.47, Eosinophils # (Auto) 0.07, Basophils # (Auto) 0.02 04/30/17 05:52 Test 04/29/17 18:07 04/29/17 18:24 04/30/17 05:52 04/30/17 07:45 Urine Color DK YELLOW Urine Appearance CLOUDY (CLEAR) Urine pH 6.0 (4.5-7.5) Urine Specific [place] 1.030 (1.000-1.030) Urine Protein TRACE (NEG) Urine Glucose (UA) NEG (NEG) Urine Ketones 1+ (NEG) Urine Occult Blood TRACE (NEG) Urine Nitrite NEG (NEG) Urine Bilirubin NEG (NEG) Urine Urobilinogen NEG (NEG) Urine Leukocyte Esterase NEG (NEG) Urine WBC (Auto) 1-5 /hpf (0-5) Urine RBC (Auto) 5-10 /hpf (0-4) Urine Hyaline Casts (Auto) >30 /lpf (0-5) Urine Epithelial Cells (Auto) >30 /lpf (0-5) Urine Bacteria (Auto) NEG (NEG) Urine Renal Epithelial Cells 0-5 /lpf (0-5) Urine Pathogenic Casts 0-3 GRANULAR CASTS /lpf (0) Prothrombin Time 11.2 SECONDS (9.0-12.0) Prothromb Time International Ratio 1.0 (0.9-1.1) Activated Partial Thromboplast Time 29.9 SECONDS (21.0-31.0) Partial Thromboplastin Ratio 1.2 Direct Bilirubin 0.2 mg/dl (0-0.2) Total Creatine Kinase 120 U/L (26-192) Creatine Kinase MB 2.3 ng/ml (0.5-3.6) Creatine Kinase MB Ratio 1.9 (0-3.0) Troponin I < 0.015 ng/ml (0-0.045) Pro-B-Type Natriuretic Peptide 254 pg/ml (0-1800) Lipase 81 U/L (73-393) Thyroid Stimulating Hormone (TSH) 0.980 uIu/ml (0.300-4.500) Free Thyroxine 1.15 ng/dl (0.80-1.60) White Blood Count 8.28 K/uL (4.8-10.8) Red Blood Count 4.27 M/uL (4.2-5.4) Hemoglobin 12.0 g/dL (12.0-16.0) Hematocrit 36.4 % (37-47) Mean Corpuscular Volume 85.2 fL (80-100) Mean Corpuscular Hemoglobin 28.1 pg (25-34) Mean Corpuscular Hemoglobin Concent 33.0 g/dl (32-36) Platelet Count 482 K/uL (130-400) Mean Platelet Volume 9.6 fL (7.4-10.4) Neutrophils (%) (Auto) 86.9 % Lymphocytes (%) (Auto) 5.3 % Monocytes (%) (Auto) 5.7 % Eosinophils (%) (Auto) 0.8 % Basophils (%) (Auto) 0.2 % Neutrophils # (Auto) 7.19 K/uL (1.4-6.5) Lymphocytes # (Auto) 0.44 K/uL (1.2-3.4) Monocytes # (Auto) 0.47 K/uL (0.11-0.59) Eosinophils # (Auto) 0.07 K/uL (0-0.5) Basophils # (Auto) 0.02 K/uL (0-0.2) RDW Standard Deviation 46.6 fL (36.4-46.3) RDW Coefficient of Variation 15.1 % (11.5-14.5) Immature Granulocyte % (Auto) 1.1 % Immature Granulocyte # (Auto) 0.09 K/uL (0.00-0.02) Anion Gap 8.0 mmol/L (3-11) Est Creatinine Clear Calc Drug Dose 90.2 ml/min Estimated GFR () 107.6 Estimated GFR (Non- 92.8 BUN/Creatinine Ratio 19.0 (10-20) Calcium Level 8.6 mg/dl (8.5-10.1) Phosphorus Level 2.5 mg/dl (2.5-4.9) Magnesium Level 1.9 mg/dl (1.8-2.4) Total Bilirubin 0.5 mg/dl (0.2-1) Aspartate Amino Transf (AST/SGOT) 27 U/L (15-37) Alanine Aminotransferase (ALT/SGPT) 34 U/L (12-78) Alkaline Phosphatase 114 U/L (45-117) Total Protein 5.9 gm/dl (6.4-8.2) Albumin 1.7 gm/dl (3.4-5.0) Globulin 4.2 gm/dl (2.5-4.0) Albumin/Globulin Ratio 0.4 (0.9-2) Bedside Glucose 227 mg/dl (70-90) Assessment and Plan 76 year old female s/p fall around 07Sep at home, discovered 11Sep, and hx of back + diarrhea issues. S/p fall: Reportedly on the floor for four days. Pt reports frequent falls recently. Unsure if related to back pain, weakness, hypovolemia, possible syncope (and its causes), or combo of the above. Reportedly not taking meds during that time. Given decadron in the ED. - Rehydrate, PO intake here, assess motor and sensory function. - On tele in case of arrhythmia. May be able to transfer off if none seen. [ ] UCx pending. [ ] PT/OT consult/eval greatly appreciated. Diarrhea: Pt notes more frequent N/V/D during past month. - Monitor for same while inpt. Back pain: Question of previous spinal issues (? surgery vs local infection). Will dig into records further... [ ] MRI lumbar spine ordered. [ ] Ortho consult (Dr. Cavanaugh). Hypokalemia: - Repletion here. PMH Vertigo: - On home meclizine. PMH Apparent thyroid dysfunction: Unclear type at moment. - On home synthroid. PMH ? HTN: - Held home HTN meds Disposition: - Lives alone at home. Likely need for future rehab. Pt requeseted [facility]. DVT prophy: Lovenox Code status: Full code Will discuss all the above on attending rounds this morning. ISH, PGY1 Bagel Maker Tracking Resident Involvement: Resident Care Provided Care Provided: Adult Hospital Medicine (inpt rounds) History Resident Physician Supervision Note: I was present with Dr. Price during the history and exam. I discussed the case with the resident and agree with the findings and plan as documented in the note. Any exceptions or clarifications are listed here. Discussion with patient and daughter present. Patient reports over the last four days that she had been laying on the ground, crawling around and eating food out of a lazy joy without mention or recollection of hydration. She was eventually able to crawl to the phone in the office (across the house from the bedroom phone which was ) and call for assistance. The daughter reports that there was - 4 newspapers at the door and 4 meals worth of [id number] INSIDE the house which were uneaten. The daughter has noticed some difficulty with focus, concentration and task completion with her mother which has not to her knowledge impacted her ADLs. Patient is oriented to self, place and mostly to time (got the month wrong twice before remembering) but was unable to focus on animal naming for 60 seconds and had to be reoriented to the task before naming a total of 10 animals with many repeats. General Appearance: no apparent distress, obese Eye Exam: bilateral eye PERRL, bilateral eye EOMI Ears, Nose, Throat: hearing grossly normal, pharynx normal Neck: non-tender, full range of motion, supple Respiratory: chest non-tender, lungs clear, normal breath sounds, no respiratory distress Cardiovascular: normal peripheral pulses, regular rate, rhythm, no edema, no murmur Gastrointestinal: normal bowel sounds, non tender, soft, no organomegaly Neurologic/Psychiatric: focuser II-XII nml as tested, no motor/sensory deficits, alert, normal mood/affect, oriented x 3 Assessment/Plan 76 y/o female h/o HTN, hypothyroidism, vertigo presents s/p fall w/ diarrhea and back pain Fall - I'm concerned that the history doesn't make sense, especially with the meals on wheels person being in the house (will try and obtain that hx) but at the meanwhile there is definite concern for underlying dementia/delirium despite negative workup already. Daughter is similarly concerned and has been d/ w other daughter re: assisted living for the patient. Agree w/ PT/OT consultation and evaluation for ?HS referral and potential assisted living thereafter. MMSE 30/30 per resident evaluation. Can D/C IVF as Cr is WNL. CK also WNL Diarrhea - continue to monitor - concerning for incontinence v. delirium induced , will test if needed Lower back pain, acute on chronic - patient at baseline - f/u ortho and MRI Hypokalemia - recheck in AM BPPV - stable at patient baseline - continue meclizine PRN, though this can worsen/induce delirium, so use with caution Hypothyroidism - continue synthroid HTN - continue present medication regimen
--- NOTE | 2017-04-30 08:33 | Orthopedic Consultation ---
Orthopedic Consultation Date of Consultation: Apr 30, 2017. Attending Physician: Zachery Mayes M.D. Reason for Consultation: Lower extremity weakness History of Present Illness This very pleasant 76-year-old female well-known to me having undergone multilevel lumbar decompression fusion. She states that she had significant illness over the past 3-4 days including diarrhea and was essentially unable to get off the floor. She was brought to the emergency room and a weakened condition. At this time she has no complaints of back pain denies any leg pain. She is feeling much stronger. Past Medical/Surgical History Medical Problems: (1) Abnormal CT of the abdomen Status: Acute (2) Contusion of left hip Status: Acute (3) Dehydration Status: Acute (4) Fall Status: Acute (5) Generalized weakness Status: Acute (6) Lumbar contusion Status: Acute (7) Vomiting Status: Acute Family History Diabetes mellitus FH: cancer FH: heart disease Hypertension Seizures Social History Smoking Status: Never Smoker Marital Status: Housing Status: lives alone Occupation Status: retired Allergies Coded Allergies: No Known Allergies (Unverified , 02/14/16) Home Medications Scheduled Aspirin (Aspirin Ec), 81 MG PO HS Atorvastatin (Atorvastatin Calcium), 10 MG PO DAILY Cyanocobalamin (Vitamin B-12), 1,000 MCG PO QAM Fluvoxamine Maleate (Fluvoxamine Maleate), 100 MG PO TID Hydrochlorothiazide (Hydrochlorothiazide), 12.5 MG PO QAM Levothyroxine Sodium (Synthroid), 100 MCG PO HS Metformin Hcl Er (Glucophage Er), 1,000 MG PO QAM Multiple Vitamins W/ Minerals (Preservision Areds 2), 1 CAP PO BID Propranolol Hcl (Propranolol Hcl Er), 80 MG PO HS Zolpidem Tartrate (Ambien Cr), 12.5 MG PO HS Scheduled PRN Diazepam (Valium), 2 MG PO BID PRN for VERTIGO/TREMORS Meclizine Hcl (Meclizine Hcl), 1 TAB PO TID PRN for Dizziness or Vertigo Meloxicam (Mobic), 7.5 MG PO DAILY PRN for Pain Metronidazole Hcl (Metronidazole), 1 APPLN TOP BID PRN for Current Inpatient Medications Current Inpatient Medications Medications (Trade) Dose Ordered Sig/Tiffanie Route Start Time Stop Time Status Last Admin Dose Admin Enoxaparin Sodium (Lovenox Inj) 40 mg Q24H SC 04/30/17 08:00 05/30/17 07:59 04/30/17 07:34 40 MG Acetaminophen (Tylenol Tab) 650 mg Q4H PRN PO 04/30/17 00:15 05/30/17 00:14 Ondansetron HCl (Zofran Inj) 4 mg Q6H PRN IV 04/30/17 00:15 05/30/17 00:14 Potassium Chloride 40 meq/ Sodium Chloride 1,020 ml @ 100 mls/hr [id number] IV 04/30/17 02:00 04/30/17 22:23 04/30/17 02:32 100 MLS/HR Aspirin (Ecotrin Tab) 81 mg HS PO 04/30/17 21:00 05/30/17 20:59 Atorvastatin Calcium (Lipitor Tab) 10 mg DAILY PO 04/30/17 09:00 05/30/17 08:59 04/30/17 07:38 10 MG Cyanocobalamin (Vitamin B-12 Tab) 1,000 mcg QAM PO 04/30/17 09:00 05/30/17 08:59 04/30/17 07:38 1,000 MCG Levothyroxine Sodium (Synthroid Tab) 100 mcg DAILYBB PO 04/30/17 06:30 05/30/17 06:29 04/30/17 07:08 100 MCG Meclizine HCl (Antivert Tab) 25 mg TID PRN PO 04/30/17 00:30 05/30/17 00:29 Meloxicam (Mobic Tab) 7.5 mg DAILY PRN PO 04/30/17 00:30 05/30/17 00:29 Zolpidem Tartrate (Ambien Tab) 5 mg HS PRN PO 04/30/17 00:30 05/30/17 00:29 Insulin Aspart (novoLOG ASPART) SLIDING SCALE G... ACHS SC 04/30/17 11:00 05/30/17 10:59 Physical Exam Date Time Temp Pulse Resp B/P (MAP) Pulse Ox O2 Delivery O2 Flow Rate FiO2 04/30/17 07:22 36.7 80 18 115/66 (82) 90 04/30/17 04:15 37.0 77 16 131/76 (94) 93 04/30/17 04:00 Room Air 04/30/17 01:20 38.3 82 18 117/74 (88) 93 Room Air 04/30/17 01:20 38.3 82 18 117/74 Room Air 04/30/17 01:06 36.6 87 16 142/68 98 04/30/17 00:40 87 16 142/68 98 Room Air 04/29/17 23:05 81 18 95 Room Air 04/29/17 22:32 76 04/29/17 21:52 75 18 152/73 98 Room Air 04/29/17 20:15 70 18 148/72 97 Room Air 04/29/17 19:32 65 20 140/73 96 Room Air 04/29/17 19:00 67 20 143/78 96 Room Air 04/29/17 17:55 36.6 72 20 145/72 96 Room Air 04/29/17 17:55 96 Room Air Patient is simply bed eating appears quite comfortable. She is excellent strength in detail testing bilateral extremities plantar flexion dorsiflexion and extension also longus. Sensory symmetric and intact. Laboratory Results Last 24 Hours Test 04/29/17 18:07 04/29/17 18:24 04/30/17 05:52 04/30/17 07:45 Urine Color DK YELLOW Urine Appearance CLOUDY Urine pH 6.0 Urine Specific Ramona 1.030 Urine Protein TRACE Urine Glucose (UA) NEG Urine Ketones 1+ Urine Occult Blood TRACE Urine Nitrite NEG Urine Bilirubin NEG Urine Urobilinogen NEG Urine Leukocyte Esterase NEG Urine WBC (Auto) 1-5 /hpf Urine RBC (Auto) 5-10 /hpf Urine Hyaline Casts (Auto) >30 /lpf Urine Epithelial Cells (Auto) >30 /lpf Urine Bacteria (Auto) NEG Urine Renal Epithelial Cells 0-5 /lpf Urine Pathogenic Casts 0-3 GRANULAR CASTS /lpf White Blood Count 9.18 K/uL 8.28 K/uL Red Blood Count 4.35 M/uL 4.27 M/uL Hemoglobin 12.0 g/dL 12.0 g/dL Hematocrit 37.7 % 36.4 % Mean Corpuscular Volume 86.7 fL 85.2 fL Mean Corpuscular Hemoglobin 27.6 pg 28.1 pg Mean Corpuscular Hemoglobin Concent 31.8 g/dl 33.0 g/dl Platelet Count 492 K/uL 482 K/uL Mean Platelet Volume 9.7 fL 9.6 fL Neutrophils (%) (Auto) 66.7 % 86.9 % Lymphocytes (%) (Auto) 14.5 % 5.3 % Monocytes (%) (Auto) 15.3 % 5.7 % Eosinophils (%) (Auto) 2.2 % 0.8 % Basophils (%) (Auto) 0.2 % 0.2 % Neutrophils # (Auto) 6.13 K/uL 7.19 K/uL Lymphocytes # (Auto) 1.33 K/uL 0.44 K/uL Monocytes # (Auto) 1.40 K/uL 0.47 K/uL Eosinophils # (Auto) 0.20 K/uL 0.07 K/uL Basophils # (Auto) 0.02 K/uL 0.02 K/uL RDW Standard Deviation 46.9 fL 46.6 fL RDW Coefficient of Variation 14.9 % 15.1 % Immature Granulocyte % (Auto) 1.1 % 1.1 % Immature Granulocyte # (Auto) 0.10 K/uL 0.09 K/uL Prothrombin Time 11.2 SECONDS Prothromb Time International Ratio 1.0 Activated Partial Thromboplast Time 29.9 SECONDS Partial Thromboplastin Ratio 1.2 Sodium Level 140 mmol/L 138 mmol/L Potassium Level 3.2 mmol/L 3.6 mmol/L Chloride Level 108 mmol/L 107 mmol/L Carbon Dioxide Level 26 mmol/L 23 mmol/L Anion Gap 6.0 mmol/L 8.0 mmol/L Blood Urea Nitrogen 14 mg/dl 10 mg/dl Creatinine 0.54 mg/dl 0.52 mg/dl Est Creatinine Clear Calc Drug Dose 86.4 ml/min 90.2 ml/min Estimated GFR () 106.2 107.6 Estimated GFR (Non- 91.7 92.8 BUN/Creatinine Ratio 25.3 19.0 Random Glucose 109 mg/dl 154 mg/dl Calcium Level 8.2 mg/dl 8.6 mg/dl Phosphorus Level 1.8 mg/dl 2.5 mg/dl Magnesium Level 2.0 mg/dl 1.9 mg/dl Total Bilirubin 0.5 mg/dl 0.5 mg/dl Direct Bilirubin 0.2 mg/dl Aspartate Amino Transf (AST/SGOT) 27 U/L 27 U/L Alanine Aminotransferase (ALT/SGPT) 40 U/L 34 U/L Alkaline Phosphatase 126 U/L 114 U/L Total Creatine Kinase 120 U/L Creatine Kinase MB 2.3 ng/ml Creatine Kinase MB Ratio 1.9 Troponin I < 0.015 ng/ml Pro-B-Type Natriuretic Peptide 254 pg/ml Total Protein 6.3 gm/dl 5.9 gm/dl Albumin 2.0 gm/dl 1.7 gm/dl Lipase 81 U/L Thyroid Stimulating Hormone (TSH) 0.980 uIu/ml Free Thyroxine 1.15 ng/dl Globulin 4.2 gm/dl Albumin/Globulin Ratio 0.4 Bedside Glucose 227 mg/dl Assessment & Plan Assessment status post multilevel lumbar decompression fusion with an acute illness. X-rays demonstrate solid fusion no migration of instrumentation. Plan at this time lumbar spine is clear would not recommend any intervention at this point. She certainly a reasonable candidate for [facility].
[2017-04-30] MEDS ORDERED: GADAVIST IV PRN (09:00)
[2017-04-30] MEDS: INSULIN ASPART 100 UNITS/ML 3 ML PEN SC SCH ×3 (12:11→20:42)
--- NOTE | 2017-04-30 12:30 | DIAGNOSTIC IMAGING REPORT ---
MRI LUMBAR SPINE COMBINATION CLINICAL HISTORY: Trauma. Back pain. Bilateral leg weakness. Urinary and bowel incontinence. History of prior back surgery. TECHNIQUE: Sagittal and axial T1, T2 and STIR images were obtained. Images were acquired before and after the administration of 7.5 cc of intravenous Gadavist. COMPARISON STUDY: Conventional radiographic study dated 04/29/2017 OBSERVATIONS: There are no areas of marrow edema to indicate metastatic disease or an acute fracture. Incidental note is made of bladder distention. There is artifact secondary to prior spinal surgery with an L3-S1 posterior decompression and fusion. L1-2: There is an L1 vertebral body hemangioma. There is a disc bulge and right lateral disc protrusion. There is mild spinal stenosis. There is right-sided foraminal narrowing. There is mild retrolisthesis of L1 on L2. L2-3: There is a circumferential disc bulge. There is moderate spinal stenosis. There is bilateral foraminal narrowing. L3-4: There are postsurgical changes of a posterior spinal decompression. There is no significant spinal or foraminal stenosis. L4-5: There are postsurgical changes of posterior spinal decompression. There is no significant spinal or foraminal stenosis L5-S1: There are postsurgical changes with posterior spinal decompression. There is no significant spinal stenosis. The foramina are difficult to evaluate due to artifact. The conus medullaris and cauda equina appear normal. There is posterior soft tissue edema, likely related to prior surgery. There are no pathologically enhancing masses. IMPRESSION: 1. Postsurgical changes of a prior posterior spinal decompression and fusion 2. Mild spinal stenosis the L1-2 level 2. Moderate spinal stenosis at the L2-3 level 3. No evidence of acute fracture 4. Bladder distention Electronically signed by: Aristides Cody M.D. 04/30/2017 12:28 PM Dictated Date/Time: 04/30/2017 12:22 PM
[2017-04-30] MEDS: ASPIRIN 81 MG ECTAB PO SCH (20:41)
[2017-04-30] MEDS ORDERED: GLUCAGON FOR INJ 1 MG VIAL SQ PRN (21:00)
[2017-04-30] MEDS ORDERED: GLUCOSE 10 TABS/TUBE PO PRN (21:00)
[2017-04-30] MEDS ORDERED: DEXTROSE 50% 50 ML SYR IV PRN (21:00)
[2017-04-30] MEDS ORDERED: GLUCOSE 40% GEL 15 GM TUBE PO PRN (21:00)
[2017-04-30] MEDS: ZOLPIDEM TARTRATE 5 MG TAB PO PRN (22:45)
[2017-05-01] VITALS (9 sets, daily range): BP systolic 112–158; BP diastolic 65–80; PULSE 70–104; TEMP 36.2–36.7; O2SAT 90–94
[2017-05-01] MEDS: ZOLPIDEM TARTRATE 5 MG TAB PO PRN ×2 (00:14→23:26)
--- NOTE | 2017-05-01 05:36 | Family Medicine Progress Note ---
Progress Note Date of Service May 01, 2017. Subjective Pt evaluation today including: conversation w/ patient, physical exam, chart review, lab review Says she slept well overnight, no current complaints. Denies any N/V/D while inpt. No new abd pain, CP, SOB. Would like to go back to rehab today. Constitutional: No fever, No chills Respiratory: No cough, No shortness of breath Cardiovascular: No chest pain, No edema Abdomen: + pain (baseline RLQ), No nausea, No vomiting, No diarrhea Medications Current Inpatient Medications Medications (Trade) Dose Ordered Sig/Tiffanie Route Start Time Stop Time Status Last Admin Dose Admin Enoxaparin Sodium (Lovenox Inj) 40 mg Q24H SC 04/30/17 08:00 05/30/17 07:59 05/01/17 07:56 40 MG Acetaminophen (Tylenol Tab) 650 mg Q4H PRN PO 04/30/17 00:15 05/30/17 00:14 Ondansetron HCl (Zofran Inj) 4 mg Q6H PRN IV 04/30/17 00:15 05/30/17 00:14 Aspirin (Ecotrin Tab) 81 mg HS PO 04/30/17 21:00 05/30/17 20:59 04/30/17 20:41 81 MG Atorvastatin Calcium (Lipitor Tab) 10 mg DAILY PO 04/30/17 09:00 05/30/17 08:59 05/01/17 07:56 10 MG Cyanocobalamin (Vitamin B-12 Tab) 1,000 mcg QAM PO 04/30/17 09:00 05/30/17 08:59 05/01/17 07:56 1,000 MCG Levothyroxine Sodium (Synthroid Tab) 100 mcg DAILYBB PO 04/30/17 06:30 05/30/17 06:29 05/01/17 06:17 100 MCG Meclizine HCl (Antivert Tab) 25 mg TID PRN PO 04/30/17 00:30 05/30/17 00:29 04/30/17 13:33 25 MG Meloxicam (Mobic Tab) 7.5 mg DAILY PRN PO 04/30/17 00:30 05/30/17 00:29 Zolpidem Tartrate (Ambien Tab) 5 mg HS PRN PO 04/30/17 00:30 10/12/17 00:29 05/01/17 00:14 5 MG Insulin Aspart (novoLOG ASPART) SLIDING SCALE G... ACHS SC 04/30/17 11:00 05/30/17 10:59 04/30/17 20:42 2 UNITS Gadobutrol (Gadavist) 7.5 mmol UD PRN IV 04/30/17 09:00 05/04/17 08:59 Glucose (Glucose 40% Gel) 15-30 GRAMS 15 GRAMS... UD PRN PO 04/30/17 21:00 05/30/17 20:59 Glucose (Glucose Chew Tab) 4-8 Tablets 4 Tabl... UD PRN PO 04/30/17 21:00 05/30/17 20:59 Dextrose (Dextrose 50% 50ML Syringe) 25-50ML OF 50% DW IV FOR... UD PRN IV 04/30/17 21:00 05/30/17 20:59 Glucagon (Glucagon Inj) 1 mg UD PRN SQ 04/30/17 21:00 05/30/17 20:59 Objective Vital Signs Date Time Temp Pulse Resp B/P (MAP) Pulse Ox O2 Delivery O2 Flow Rate FiO2 05/01/17 07:33 36.4 76 18 154/78 (103) 94 Room Air 05/01/17 04:04 36.4 70 18 144/69 (94) 90 Room Air 05/01/17 04:00 Room Air 05/01/17 00:00 Room Air 04/30/17 23:14 36.5 70 22 144/75 (98) 92 Room Air 04/30/17 20:00 Room Air 04/30/17 19:11 36.5 74 18 129/71 (90) 91 Room Air 04/30/17 16:00 Room Air 04/30/17 15:43 36.4 70 18 125/71 (89) 94 Room Air 04/30/17 12:00 Room Air 04/30/17 10:57 36.4 76 18 110/68 (82) 94 Physical Exam General Appearance: no apparent distress Respiratory/Chest: lungs clear, normal breath sounds Cardiovascular: regular rate, rhythm, no edema Abdomen: normal bowel sounds, soft, + tenderness (only mildly ttp over hernia, otherwise non-tender to palp), + hernia (large baseline RLQ hernia (grossly unchanged from prior exam)) Extremities: no pedal edema Laboratory Results Test 05/01/17 07:10 Bedside Glucose 150 mg/dl (70-90) Assessment and Plan 76 year old female s/p fall around 07Sep at home, discovered 11Sep, and hx of back + diarrhea issues. S/p fall: Reportedly on the floor for four days (based on unused meals and newspapers sitting outside). Story is mysterious. Unclear how pt remained hydrated during this time as not to have related lab abnormalities, though pt states she did not eat or drink anything during that time. Somehow was able to crawl to only working phone in the home on day four but not earlier. Unsure if fall is related to back pain, weakness, hypovolemia, possible syncope (and its causes), or combo of the above. Reportedly not taking meds during that time. Given decadron in the ED. As inpt has been provided hydration and is tolerating PO. Remains in very good spirits. No focal deficits on neuro exam. Daughter had concerns for delirium/dementia. MMSE on 12Sep was 30/30. No arrhythmic events seen on telemetry thus far. [ ] UCx pending (no growth thus far as of 13Sep). [ ] PT/OT consult/eval greatly appreciated. Diarrhea: Says its been an issue for her in past month. Has not seen PCM for it. Unclear source. No reports of the same during inpt stay thus far. No known recent hospitalizations or abx use to suggest C diff. - Monitor for same while inpt, consider workup if resumes. Back pain: Acute on chronic, as pt has hx of multi-level lumbar decompression/ fusion in Aug 2012. MRI lumbar spine showed nothing acute. Orthopedics consulted (appreciate their recs), recommended no current intervention, but said she was certainly a reasonable candidate for [facility]. Hypokalemia: Noted on admit labs. Repletion here. PMH Vertigo: Unclear of type prior, but at present matches BPPV. No baseline vertigo on eval as inpt. - On home meclizine. PMH Hypothyroidism: On home synthroid. PMH HTN: Held home HTN meds Disposition: Lives alone at home. Likely need for future rehab. Pt requested [facility]. visitor services assistant help appreciated. DVT prophy: Lovenox Code status: Full code Will discuss all the above on attending rounds this morning. ISH, PGY1 Anesthesiology Faculty Tracking Resident Involvement: Resident Care Provided Care Provided: Adult Hospital Medicine (inpt rounds) History Resident Physician Supervision Note: I was present with Dr. Price during the history and exam. I discussed the case with the resident and agree with the findings and plan as documented in the note. Any exceptions or clarifications are listed here. Pt seen and examined at bedside. Some improving aching pain of the right shoulder. Irritation of the right lower quadrant hernia pain overnight which she attributes to difficulty with sleeping position in hospital bed. Reports no N/V, SOB, lightheadedness, DUQUE, vision/hearing changes, sensory changes. General Appearance: no apparent distress, obese Eye Exam: bilateral eye PERRL, bilateral eye EOMI Respiratory: chest non-tender, lungs clear, normal breath sounds, no respiratory distress Cardiovascular: normal peripheral pulses, regular rate, rhythm, no edema, no murmur Gastrointestinal: normal bowel sounds, soft, other (RLQ TTP in area of local distention c/w previous h/o hernia) Neurologic/Psychiatric: alert, normal mood/affect, oriented x 3 Assessment/Plan 76 y/o female h/o HTN, hypothyroidism, vertigo presents s/p fall w/ diarrhea and back pain Fall - MMSE 30/30 - agree w/ PT recs for inpatient rehab @ , awaiting insurance approval. Case mgmt aware. Diarrhea - resolved, no further issues Lower back pain, acute on chronic - patient at baseline, no further intervention per orthopaedic consult Hypokalemia - resolved BPPV - stable at patient baseline - continue meclizine PRN, though this can worsen/induce delirium, so use with caution Hypothyroidism - continue synthroid HTN - continue present medication regimen
[2017-05-01] MEDS: LEVOTHYROXINE 100 MCG TAB PO SCH (06:17)
[2017-05-01] MEDS: INSULIN ASPART 100 UNITS/ML 3 ML PEN SC SCH ×4 (06:30→20:51)
[2017-05-01] MEDS: ENOXAPARIN 40 MG/0.4 ML SYR SC SCH (07:56)
[2017-05-01] MEDS: CYANOCOBALAMIN 500 MCG TAB (VIT B-12) PO SCH (07:56)
[2017-05-01] MEDS: ATORVASTATIN 10 MG TAB PO SCH (07:56)
[2017-05-01] MEDS: ACETAMINOPHEN 325 MG TAB PO PRN ×2 (10:33→20:51)
--- NOTE | 2017-05-01 12:14 | Discharge Summary ---
Discharge Summary Date of Service May 03, 2017. (Josh. Price M.D.) Discharge Summary Admission Date: Apr 30, 2017 at 00:07 Discharge Date: May 03, 2017 Discharge Disposition: Rehab Principal Diagnosis: Fall Problems/Secondary Diagnoses: - Diarrhea - Back pain - Hypokalemia Immunizations: Have You Had Influenza Vaccine: Yes History of Tetanus Vaccine?: Yes History of Pneumococcal: Yes Pneumococcal Date: Sep 05, 2013 History of Hepatitis B Vaccine: No Procedures: [id number] MRI LUMBAR SPINE COMBINATION 1. Postsurgical changes of a prior posterior spinal decompression and fusion 2. Mild spinal stenosis the L1-2 level 2. Moderate spinal stenosis at the L2-3 level 3. No evidence of acute fracture 4. Bladder distention [id number] CERVICAL SP[address] No fractures within the cervical spine. Degenerative changes as described above. Suspect mild pulmonary edema. [id number] CHEST 2 VIEWS ROUTINE FINDINGS: The heart remains borderline enlarged. 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 Retrocardiac density is consistent with a small hiatus hernia. This is also unchanged. No pneumothorax. No pleural effusions. No new focal lung consolidations to suggest pneumonia. No evidence for pulmonary edema. IMPRESSION: No significant change compared to the prior study. No acute process. [id number] HEAD WITHOUT CONTRAST (CT) Findings: The paranasal sinuses and mastoid air cells are clear. Mild cerebral atrophy. Moderate chronic small vessel change. 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 No acute intracranial hemorrhage. No midline shift. Impression: No acute intracranial abnormality. Chronic and small vessel change. [id number] PELVIS 1 OR 2 VIEW ROUTINE IMPRESSION: No fracture or dislocation within the pelvis or hips. Consultations: Orthopedics, Physical Therapy, Occupational Therapy (Josh. Price M.D.) Medication Reconciliation Continued Medications: Aspirin (Aspirin Ec) 81 Mg Tab 81 MG PO HS Atorvastatin (Atorvastatin Calcium) 10 Mg Tab 10 MG PO DAILY, #90 Cyanocobalamin (Vitamin B-12) 1,000 Mcg Tab 1000 MCG PO QAM, TAB Diazepam (Valium) 2 Mg Tab 2 MG PO BID PRN for VERTIGO/TREMORS, TAB Fluvoxamine Maleate (Fluvoxamine Maleate) 100 Mg Tab 100 MG PO TID, #90 Hydrochlorothiazide (Hydrochlorothiazide) 12.5 Mg Tab 12.5 MG PO QAM Levothyroxine Sodium (Synthroid) 100 Mcg Tab 100 MCG PO HS, TAB Meclizine Hcl (Meclizine Hcl) 25 Mg Tab 1 TAB PO TID PRN for Dizziness or Vertigo for 10 Days, #30 TAB Meloxicam (Mobic) 7.5 Mg Tab 7.5 MG PO DAILY PRN for Pain, #30 Metformin Hcl Er (Glucophage Er) 500 Mg Tab 1000 MG PO QAM, TAB Metronidazole Hcl (Metronidazole) 135 Appln/45 Gm Cr 1 APPLN TOP BID PRN for , #90 Multiple Vitamins W/ Minerals (Preservision Areds 2) 1 Cap Cap 1 CAP PO BID, #1 Propranolol Hcl (Propranolol Hcl Er) 80 Mg Cap 80 MG PO HS, #30 Discontinued Medications: Zolpidem Tartrate (Ambien Cr) 12.5 Mg Tabcr 12.5 MG PO HS Discharge Exam - Large baseline RLQ hernia Review of Systems: Constitutional: No fever, No chills, No sweats Respiratory: No cough, No shortness of breath Cardiovascular: No chest pain Abdomen: + pain (baseline RLQ), No nausea, No vomiting, No diarrhea Neurologic: No weakness, No numbness/tingling Physical Exam: General Appearance: WD/WN, no apparent distress Neck: supple Respiratory/Chest: lungs clear, normal breath sounds Cardiovascular: regular rate, rhythm, no edema Abdomen / GI: normal bowel sounds, soft, + tenderness (only over RLQ hernia) Extremities: normal inspection, no pedal edema, normal range of motion ( including left hip) Skin: + pertinent finding (contusions to left hip) (Josh. Price M.D.) Hospital Course 76 year old female s/p fall around 07Sep at home, discovered 11Sep, and hx of back + diarrhea issues. S/p fall: Reportedly on the floor for four days (based on unused meals and newspapers sitting outside). Story is mysterious. Unclear how pt remained hydrated during this time as not to have related lab abnormalities, though pt states she did not eat or drink anything during that time. Somehow was able to crawl to only working phone in the home on day four but not earlier. Unsure if fall is related to back pain, weakness, hypovolemia, possible syncope (and its causes), or combo of the above. Reportedly not taking meds during that time. Given decadron in the ED. As inpt has been provided hydration and is tolerating PO. Remains in very good spirits. No focal deficits on neuro exam. Daughter had concerns for delirium/dementia. MMSE on 12Sep was 30/30. No arrhythmic events seen on telemetry thus far. Urine culture showed no growth. PT saw pt on 12Sep, recommended continued P.T. & acute inpatient rehab. OT saw pt on 12Sep, noted pt is not safe to return home at her current level of function. Recommended continued inpatient therapies after discharge from [facility]. Diarrhea: Says its been an issue for her in past month. Has not seen PCM for it. Unclear source. No reports of the same during inpt stay thus far. No known recent hospitalizations or abx use to suggest C diff. Recommended discuss same with PCM if reoccurs. Back pain: Acute on chronic, as pt has hx of multi-level lumbar decompression/ fusion in Aug 2012. MRI lumbar spine showed nothing acute. Orthopedics consulted (appreciate their recs), recommended no current intervention, but said she was certainly a reasonable candidate for [facility]. Hypokalemia: Noted on admit labs. Repletion here, resolved on follow-up testing. PMH Vertigo: Unclear of type prior, but at present matches BPPV. No baseline vertigo on eval as inpt. Pt was on her home meclizine while inpt. PMH Hypothyroidism: On home synthroid. PMH HTN: Held home HTN meds as inpt. Plan for resume home meds upon transfer to [facility]. [facility] transfer was delayed by 48 hours due to initial denial, then approval on reported appeal. DVT prophy as inpt: Lovenox Code status: Full code Total Time Spent: Greater than 30 minutes This includes examination of the patient, discharge planning, medication reconciliation, and communication with other providers. (Josh. Price M.D.) Discharge Instructions Please refer to the electronic Patient Visit Report (Discharge Instructions) for additional information. (Josh. Price M.D.) Follow-Up - Transfer to [facility] upon discharge for further rehabilitation. - Ongoing PCM follow-up for chronic medical issues. (Josh. Price M.D.) Additional Copies To ,Cr Barth M.D. Gastrointestinal: tenderness (Shashank Bhatia MD) Assessment/Plan For full attending attestation, please see accompanying progress note from day of discharge. 76 y/o female h/o HTN, hypothyroidism, vertigo presents s/p fall w/ diarrhea and back pain Fall - MMSE 30/30 - Elated to head to inpatient rehab to get stronger. Diarrhea - complaint prior to admission, no apparent loose BM in hospital. Lower back pain, acute on chronic - patient at baseline, no further intervention per orthopaedic consult BPPV - stable at patient baseline - continue meclizine PRN, though this can worsen/induce delirium, so use with caution Hypothyroidism - continue synthroid HTN - continue present medication regimen (Shashank Bhatia MD)
--- NOTE | 2017-05-01 12:26 | Discharge Instructions ---
Discharge Instructions Date of Service May 03, 2017. Admission Reason for Admission: Bilateral Leg Weakness, Fall, Vertigo Discharge Discharge Diagnosis / Problem: Fall, diarrhea Discharge Goals Goal(s): Improve function, Increase independence Activity Recommendations Activity Limitations: per Instructions/Follow-up section . Instructions / Follow-Up Instructions / Follow-Up - You are on track to return to [facility] for further inpatient rehabilitation. Please follow their instructions for your level of activity. - Please also follow up with your primary care provider for further evaluation of your reported multiple falls, vomiting and diarrhea, as well as your ongoing medical issues. Current Hospital Diet Patient's current hospital diet: Diabetes Type 2 Diet Discharge Diet Recommended Diet: Diabetes Type 2 Diet Procedures Procedures Performed: Head CT, Neck CT, Chest x-ray, MRI of low back (lumbar spine) Pending Studies Studies pending at discharge: no Laboratory Results Hemoglobin A1c Test 02/18/17 09:13 Range/Units Estimated Average Glucose 157 mg/dl Hemoglobin A1c 7.1 H 4.5-5.6 % Lipid Panel Test 02/18/17 09:13 Range/Units Triglycerides Level 147 0-150 mg/dl Cholesterol Level 139 0-200 mg/dl HDL Cholesterol 48 mg/dl Cholesterol/HDL Ratio 2.9 LDL Cholesterol, Calculated 62 mg/dl Medical Emergencies . Who to Call and When: Medical Emergencies: If at any time you feel your situation is an emergency, please call 911 immediately. . Non-Emergent Contact Non-Emergency issues call your: Primary Care Provider . . "Provider Documentation" section prepared by Everardo Price. . VTE Core Measure Inpt VTE Proph given/why not?: Enoxaparin (Lovenox)SQ
[2017-05-01] MEDS: ASPIRIN 81 MG ECTAB PO SCH (20:51)
[2017-05-02] VITALS (13 sets, daily range): BP systolic 115–154; BP diastolic 66–78; PULSE 69–102; TEMP 36.5–37.9; O2SAT 91–94
[2017-05-02] MEDS: ZOLPIDEM TARTRATE 5 MG TAB PO PRN ×2 (00:50→22:20)
--- NOTE | 2017-05-02 05:40 | Family Medicine Progress Note ---
Progress Note Date of Service May 02, 2017. Subjective Pt evaluation today including: conversation w/ patient, physical exam, chart review, lab review Found pt eating breakfast, smiling, appears comfortable. Says she's awaiting the appeal decision for [facility]. Denies any particular concerns at present. No V/D while here. No noted sleep complaints on the 5 mg of ambien. Constitutional: No fever, No chills Respiratory: No cough, No shortness of breath Cardiovascular: No chest pain, No edema Abdomen: + pain (only at known RLQ hernia site, baseline), No nausea, No vomiting, No diarrhea Medications Current Inpatient Medications Medications (Trade) Dose Ordered Sig/Tiffanie Route Start Time Stop Time Status Last Admin Dose Admin Enoxaparin Sodium (Lovenox Inj) 40 mg Q24H SC 04/30/17 08:00 05/30/17 07:59 05/02/17 07:30 40 MG Acetaminophen (Tylenol Tab) 650 mg Q4H PRN PO 04/30/17 00:15 05/30/17 00:14 05/01/17 20:51 650 MG Ondansetron HCl (Zofran Inj) 4 mg Q6H PRN IV 04/30/17 00:15 05/30/17 00:14 Aspirin (Ecotrin Tab) 81 mg HS PO 04/30/17 21:00 05/30/17 20:59 05/01/17 20:51 81 MG Atorvastatin Calcium (Lipitor Tab) 10 mg DAILY PO 04/30/17 09:00 05/30/17 08:59 05/01/17 07:56 10 MG Cyanocobalamin (Vitamin B-12 Tab) 1,000 mcg QAM PO 04/30/17 09:00 05/30/17 08:59 05/01/17 07:56 1,000 MCG Levothyroxine Sodium (Synthroid Tab) 100 mcg DAILYBB PO 04/30/17 06:30 05/30/17 06:29 05/02/17 06:20 100 MCG Meclizine HCl (Antivert Tab) 25 mg TID PRN PO 04/30/17 00:30 05/30/17 00:29 04/30/17 13:33 25 MG Meloxicam (Mobic Tab) 7.5 mg DAILY PRN PO 04/30/17 00:30 05/30/17 00:29 Zolpidem Tartrate (Ambien Tab) 5 mg HS PRN PO 04/30/17 00:30 05/30/17 00:29 05/02/17 00:50 5 MG Insulin Aspart (novoLOG ASPART) SLIDING SCALE G... ACHS SC 04/30/17 11:00 05/30/17 10:59 05/01/17 12:11 1 UNITS Gadobutrol (Gadavist) 7.5 mmol UD PRN IV 04/30/17 09:00 05/04/17 08:59 Glucose (Glucose 40% Gel) 15-30 GRAMS 15 GRAMS... UD PRN PO 04/30/17 21:00 05/30/17 20:59 Glucose (Glucose Chew Tab) 4-8 Tablets 4 Tabl... UD PRN PO 04/30/17 21:00 05/30/17 20:59 Dextrose (Dextrose 50% 50ML Syringe) 25-50ML OF 50% DW IV FOR... UD PRN IV 04/30/17 21:00 05/30/17 20:59 Glucagon (Glucagon Inj) 1 mg UD PRN SQ 04/30/17 21:00 05/30/17 20:59 Objective Vital Signs Date Time Temp Pulse Resp B/P (MAP) Pulse Ox O2 Delivery O2 Flow Rate FiO2 05/02/17 07:32 36.7 75 16 132/66 (88) 92 Room Air 05/02/17 04:52 36.5 76 18 154/76 (102) 93 Room Air 05/02/17 04:00 93 Room Air 05/02/17 00:17 36.5 69 18 133/73 (93) 93 Room Air 05/02/17 00:00 93 Room Air 05/01/17 20:24 36.3 75 18 143/77 (99) 93 Room Air 05/01/17 20:00 93 Room Air 05/01/17 16:00 Room Air 05/01/17 15:03 36.7 80 18 112/65 (81) 93 Room Air 05/01/17 12:30 36.7 81 18 93 Room Air 05/01/17 12:00 Room Air 05/01/17 11:32 36.7 81 18 126/74 (91) 93 Room Air 05/01/17 10:16 94 Room Air 05/01/17 08:20 36.2 73 22 158/78 (104) 94 Room Air 104 142/80 (100) Physical Exam General Appearance: no apparent distress Respiratory/Chest: lungs clear, normal breath sounds Cardiovascular: regular rate, rhythm, no edema Abdomen: normal bowel sounds, soft, + tenderness (only over RLQ hernias, says at her baseline) Extremities: normal range of motion, non-tender Neurologic/Psychiatric: no motor/sensory deficits, alert Skin: + pertinent finding (remaining contusion to left hip s/p fall) Laboratory Results Test 05/01/17 20:35 Bedside Glucose 138 mg/dl (70-90) Assessment and Plan 76 year old female s/p fall around 07Sep at home, discovered 11Sep, and hx of back + diarrhea issues. S/p fall: Reportedly on the floor for four days (based on unused meals and newspapers sitting outside). Story is mysterious. Unclear how pt remained hydrated during this time as not to have related lab abnormalities, though pt states she did not eat or drink anything during that time. Somehow was able to crawl to only working phone in the home on day four but not earlier. Unsure if fall is related to back pain, weakness, hypovolemia, possible syncope (and its causes), or combo of the above. Reportedly not taking meds during that time. Given decadron in the ED. As inpt has been provided hydration and is tolerating PO. Remains in very good spirits. No focal deficits on neuro exam. Daughter had concerns for delirium/dementia. MMSE on 12Sep was 30/30. No arrhythmic events seen on telemetry thus far. UCx showed no growth. - PT evaluation on 12Sep recommended continued PT and acute inpatient rehab. - OT evaluation on 12Sep noted pt is not safe to return home at her current level of function. Diarrhea: Says its been an issue for her in past month. Has not seen PCM for it. Unclear source. No reports of the same during inpt stay thus far. No known recent hospitalizations or abx use to suggest C diff. - Monitor for same while inpt, consider workup if resumes. Back pain: Acute on chronic, as pt has hx of multi-level lumbar decompression/ fusion in Aug 2012. MRI lumbar spine showed nothing acute. Orthopedics consulted (appreciate their recs), recommended no current intervention, but said she was certainly a reasonable candidate for [facility]. During inpt stay, says her pain has been well-controlled. Hypokalemia: Noted on admit labs. Repletion here, resolved on last check. PMH Vertigo: Unclear of type prior, but at present matches BPPV. No baseline vertigo on eval as inpt. On home meclizine prn. PMH Hypothyroidism: On home synthroid. PMH HTN: Held home HTN meds Disposition: Lives alone at home. Likely need for future rehab. Pt requested [facility] but was denied insurance authorization on 13Sep. Family is going to appeal, waiting on news about this. client services account manager help greatly appreciated. DVT prophy: Lovenox Code status: Full code Will discuss all the above on attending rounds this morning. ISH, PGY1 Assistant Office Manager Tracking Resident Involvement: Resident Care Provided Care Provided: Adult Hospital Medicine (inpt rounds) History Resident Physician Supervision Note: I was present with Dr. Price during the history and exam. I discussed the case with the resident and agree with the findings and plan as documented in the note. Any exceptions or clarifications are listed here. Pt seen and examined at bedside. No acute events overnight. Ventral hernia in RLQ painful but stable at chronic level. Up and about and active with PT and ambulating with walker to restroom. General Appearance: no apparent distress, obese Respiratory: chest non-tender, lungs clear, normal breath sounds, no respiratory distress Cardiovascular: normal peripheral pulses, regular rate, rhythm, no murmur Gastrointestinal: normal bowel sounds, soft, no organomegaly, tenderness (RLQ pain ) Assessment/Plan 76 y/o female h/o HTN, hypothyroidism, vertigo presents s/p fall w/ diarrhea and back pain Fall - MMSE 30/30 - agree w/ PT recs for inpatient rehab @ [facility], awaiting placement. Case mgmt aware. Diarrhea - resolved, no further issues Lower back pain, acute on chronic - patient at baseline, no further intervention per orthopaedic consult Hypokalemia - resolved BPPV - stable at patient baseline - continue meclizine PRN, though this can worsen/induce delirium, so use with caution Hypothyroidism - continue synthroid HTN - continue present medication regimen
[2017-05-02] MEDS: LEVOTHYROXINE 100 MCG TAB PO SCH (06:20)
[2017-05-02] MEDS: ENOXAPARIN 40 MG/0.4 ML SYR SC SCH (07:30)
[2017-05-02] MEDS: INSULIN ASPART 100 UNITS/ML 3 ML PEN SC SCH ×4 (07:32→21:15)
[2017-05-02] MEDS: CYANOCOBALAMIN 500 MCG TAB (VIT B-12) PO SCH (08:58)
[2017-05-02] MEDS: ATORVASTATIN 10 MG TAB PO SCH (08:58)
[2017-05-02] MEDS: ACETAMINOPHEN 325 MG TAB PO PRN ×2 (13:25→23:33)
[2017-05-02] MEDS: ASPIRIN 81 MG ECTAB PO SCH (21:15)
[2017-05-03] VITALS (10 sets, daily range): BP systolic 104–136; BP diastolic 62–80; PULSE 86–106; TEMP 36.8–37.2; O2SAT 90–93
[2017-05-03] MEDS: ZOLPIDEM TARTRATE 5 MG TAB PO PRN (00:43)
--- NOTE | 2017-05-03 05:45 | Family Medicine Progress Note ---
Progress Note Date of Service May 03, 2017. Subjective Pt evaluation today including: conversation w/ patient, physical exam, chart review, lab review Found pt sleeping comfortably, wakes easily, smiling. Says no current concerns. Low back pain is at her baseline. Denies any new N/V/D, pains, CP/ SOB/abd pain, or other concerns. No reported overnight events. Constitutional: No fever, No chills Respiratory: No cough, No shortness of breath Cardiovascular: No chest pain, No edema Abdomen: + pain (only baseline RLQ), No nausea, No vomiting, No diarrhea Medications Current Inpatient Medications Medications (Trade) Dose Ordered Sig/Tiffanie Route Start Time Stop Time Status Last Admin Dose Admin Enoxaparin Sodium (Lovenox Inj) 40 mg Q24H SC 04/30/17 08:00 05/30/17 07:59 05/02/17 07:30 40 MG Acetaminophen (Tylenol Tab) 650 mg Q4H PRN PO 04/30/17 00:15 05/30/17 00:14 05/02/17 23:33 650 MG Ondansetron HCl (Zofran Inj) 4 mg Q6H PRN IV 04/30/17 00:15 05/30/17 00:14 Aspirin (Ecotrin Tab) 81 mg HS PO 04/30/17 21:00 05/30/17 20:59 05/02/17 21:15 81 MG Atorvastatin Calcium (Lipitor Tab) 10 mg DAILY PO 04/30/17 09:00 05/30/17 08:59 05/02/17 08:58 10 MG Cyanocobalamin (Vitamin B-12 Tab) 1,000 mcg QAM PO 04/30/17 09:00 05/30/17 08:59 05/02/17 08:58 1,000 MCG Levothyroxine Sodium (Synthroid Tab) 100 mcg DAILYBB PO 04/30/17 06:30 05/30/17 06:29 05/02/17 06:20 100 MCG Meclizine HCl (Antivert Tab) 25 mg TID PRN PO 04/30/17 00:30 05/30/17 00:29 04/30/17 13:33 25 MG Meloxicam (Mobic Tab) 7.5 mg DAILY PRN PO 04/30/17 00:30 05/30/17 00:29 Zolpidem Tartrate (Ambien Tab) 5 mg HS PRN PO 04/30/17 00:30 05/30/17 00:29 05/03/17 00:43 5 MG Insulin Aspart (novoLOG ASPART) SLIDING SCALE G... ACHS SC 04/30/17 11:00 05/30/17 10:59 05/02/17 21:15 1 UNITS Gadobutrol (Gadavist) 7.5 mmol UD PRN IV 04/30/17 09:00 05/04/17 08:59 Glucose (Glucose 40% Gel) 15-30 GRAMS 15 GRAMS... UD PRN PO 04/30/17 21:00 05/30/17 20:59 Glucose (Glucose Chew Tab) 4-8 Tablets 4 Tabl... UD PRN PO 04/30/17 21:00 05/30/17 20:59 Dextrose (Dextrose 50% 50ML Syringe) 25-50ML OF 50% DW IV FOR... UD PRN IV 04/30/17 21:00 05/30/17 20:59 Glucagon (Glucagon Inj) 1 mg UD PRN SQ 04/30/17 21:00 05/30/17 20:59 Objective Vital Signs Date Time Temp Pulse Resp B/P (MAP) Pulse Ox O2 Delivery O2 Flow Rate FiO2 05/03/17 07:48 36.8 86 20 136/80 (98) 92 Room Air 05/03/17 07:36 36.9 90 16 104/62 (76) 90 Room Air 05/03/17 04:00 90 Room Air 05/03/17 03:55 37.2 87 18 116/70 (85) 90 Room Air 05/03/17 00:47 36.9 05/03/17 00:00 93 Room Air 05/02/17 23:45 37.9 95 16 131/78 (95) 91 Room Air 05/02/17 20:45 36.8 100 88 115/75 (88) 93 05/02/17 20:00 93 Room Air 05/02/17 16:00 93 Room Air 05/02/17 15:43 37.1 101 20 120/70 (87) 93 Room Air 05/02/17 14:37 37.2 102 22 128/76 (93) 94 Room Air 05/02/17 11:25 36.8 93 16 125/73 (90) 93 Room Air Physical Exam General Appearance: no apparent distress Respiratory/Chest: lungs clear, normal breath sounds Cardiovascular: regular rate, rhythm, no edema Abdomen: normal bowel sounds, soft, + tenderness (only over known RLQ hernia, mild ttp), + hernia (RLQ known hernia) Extremities: normal range of motion, non-tender, no pedal edema Laboratory Results 05/03/17 05:45 05/03/17 05:45 Test 05/03/17 05:45 05/03/17 06:04 Red Blood Count 4.15 M/uL (4.2-5.4) Mean Corpuscular Volume 87.7 fL (80-100) Mean Corpuscular Hemoglobin 28.4 pg (25-34) Mean Corpuscular Hemoglobin Concent 32.4 g/dl (32-36) RDW Standard Deviation 49.2 fL (36.4-46.3) RDW Coefficient of Variation 15.4 % (11.5-14.5) Mean Platelet Volume 9.7 fL (7.4-10.4) Nucleated RBC Absolute Count (auto) 0.04 K/uL (0-0) Nucleated Red Blood Cells % 0.4 % Est Creatinine Clear Calc Drug Dose 69.9 ml/min Estimated GFR () 99.0 Estimated GFR (Non- 85.4 Bedside Glucose 120 mg/dl (70-90) Assessment and Plan 76 year old female s/p fall around 07Sep at home, discovered 11Sep, and hx of back + diarrhea issues. S/p fall: Reportedly on the floor for four days (based on unused meals and newspapers sitting outside). Story is mysterious. Unclear how pt remained hydrated during this time as not to have related lab abnormalities, though pt states she did not eat or drink anything during that time. Somehow was able to crawl to only working phone in the home on day four but not earlier. Unsure if fall is related to back pain, weakness, hypovolemia, possible syncope (and its causes), or combo of the above. Reportedly not taking meds during that time. Given decadron in the ED. As inpt has been provided hydration and is tolerating PO. Remains in very good spirits. No focal deficits on neuro exam. Daughter had concerns for delirium/dementia. MMSE on 12Sep was 30/30. No arrhythmic events seen on telemetry thus far. UCx showed no growth. - PT evaluation on 12Sep recommended continued PT and acute inpatient rehab. - OT evaluation on 12Sep noted pt is not safe to return home at her current level of function. Diarrhea: Says its been an issue for her in past month. Has not seen PCM for it. Unclear source. No reports of the same during inpt stay thus far. No known recent hospitalizations or abx use to suggest C diff. - Monitor for same while inpt, consider workup if resumes. Back pain: Acute on chronic, as pt has hx of multi-level lumbar decompression/ fusion in Aug 2012. MRI lumbar spine showed nothing acute. Orthopedics consulted (appreciate their recs), recommended no current intervention, but said she was certainly a reasonable candidate for [facility]. During inpt stay, says her pain has been well-controlled. Hypokalemia: Noted on admit labs. Repletion here, resolved on last check. PMH Vertigo: Unclear of type prior, but at present matches BPPV. No baseline vertigo on eval as inpt. On home meclizine prn. PMH Hypothyroidism: On home synthroid. PMH HTN: Held home HTN meds Disposition: Lives alone at home. Likely need for future rehab. Appeal to go to [facility] reportedly was approved and she has been awaiting bed availability. financial services manager help greatly appreciated. DVT prophy: Lovenox Code status: Full code Will discuss all the above on attending rounds this morning. Isaura, PGY1 Inseamer Tracking Resident Involvement: Resident Care Provided Care Provided: Adult Hospital Medicine (inpt rounds) History Resident Physician Supervision Note: I was present with Dr. Price during the history and exam. I discussed the case with the resident and agree with the findings and plan as documented in the note. Any exceptions or clarifications are listed here. Pt seen and examined at bedside. No acute events overnight. Tolerating walking w / PT well. Stable aching RLQ hernia pain unchanged from previous. Oriented x 3. General Appearance: no apparent distress, obese Respiratory: chest non-tender, lungs clear, normal breath sounds, no respiratory distress Cardiovascular: normal peripheral pulses, regular rate, rhythm, no edema, no murmur Gastrointestinal: normal bowel sounds, soft, no organomegaly, other (RLQ ventral hernia w/ TTP stable from previous) Assessment/Plan 76 y/o female h/o HTN, hypothyroidism, vertigo presents s/p fall w/ diarrhea and back pain Fall - MMSE 30/30 - agree w/ PT recs for inpatient rehab @ [facility], awaiting transport today. Case mgmt aware. Diarrhea - resolved, no further issues Lower back pain, acute on chronic - patient at baseline, no further intervention per orthopaedic consult Right ventral hernia - stable, tylenol for pain control. Continue outpatient follow up Hypokalemia - resolved BPPV - stable at patient baseline - continue meclizine PRN, though this can worsen/induce delirium, so use with caution Hypothyroidism - continue synthroid HTN - continue present medication regimen
[2017-05-03 06:10] LABS: HEMATOCRIT 36.4 % (37-47); MEAN CELL VOLUME 87.7 fL (80-100); MEAN CORPUSCULAR HEMOGLOBIN 28.4 pg (25-34); MEAN CORPUSCULAR HGB CONC 32.4 g/dl (32-36); MEAN PLATELET VOLUME 9.7 fL (7.4-10.4); PLATELET COUNT 447 K/uL (130-400); RED BLOOD COUNT 4.15 M/uL (4.2-5.4); WHITE BLOOD COUNT 10.32 K/uL (4.8-10.8)
[2017-05-03] MEDS: INSULIN ASPART 100 UNITS/ML 3 ML PEN SC SCH ×2 (06:30→11:00)
[2017-05-03 06:58] LABS: CREATININE 0.67 mg/dl (0.60-1.20)
[2017-05-03] MEDS: LEVOTHYROXINE 100 MCG TAB PO SCH (08:01)
[2017-05-03] MEDS: CYANOCOBALAMIN 500 MCG TAB (VIT B-12) PO SCH (08:01)
[2017-05-03] MEDS: ATORVASTATIN 10 MG TAB PO SCH (08:01)
[2017-05-03] MEDS: ENOXAPARIN 40 MG/0.4 ML SYR SC SCH (08:02)
--- NOTE | 2017-05-07 12:17 | EDITING REQUIRED CODING QUERY ---
CODING QUERY To promote full compliance with coding requirements relating to patient care, provider participation is requested in all cases of medical biller coder uncertainty. Please assist us with the question(s) below: Coding Question(s): Patient admitted with hip and joint contusions. History of multiple falls. Please document the etiology of the frequent falls if known or suspected. Thank you! Hira Wu [facility] Physician's Response(s): Principal Diagnosis: "_that condition established after study, to be chiefly responsible for occasioning the admission of the patient to the hospital for care." Co-Existing Principal Diagnosis: "_when two or more diagnoses equally meet the criteria for principal diagnosis as determined by the circumstances of admission, diagnostic work up, and/or therapy provided, and the Alphabetic Index, Tabular List, or another coding guideline does not provide sequencing direction, any one of the diagnoses may be sequenced first." "When the physician has documented what appears to be a current diagnosis in the body of the record, but has not included the diagnosis in the final diagnostic statement, the physician should be asked whether the diagnosis should be added." (Source Coding [facility] 2 QTR90. p3-4)
== END 2017-05-03 16:15 | DRG 93 ==
LOC: EDBD 17:53 → C.EDC 17:54 → C.MED 04-30 00:07 → ENRESERV 04-30 00:47
PROVIDERS: ADMIT Internal Medicine; ATTEND Family Medicine
DX: R29.6 Repeated falls (principal); H81.10 Benign paroxysmal vertigo, unspecified ear; S20.229A Contusion of unspecified back wall of thorax, initial encounter; S70.02XA Contusion of left hip, initial encounter; M19.90 Unspecified osteoarthritis, unspecified site; Z83.3 Family history of diabetes mellitus; E86.0 Dehydration; E83.39 Other disorders of phosphorus metabolism; R15.9 Full incontinence of feces; R32 Unspecified urinary incontinence; R19.7 Diarrhea, unspecified; M48.06 Spinal stenosis, lumbar region; Z98.1 Arthrodesis status; E03.9 Hypothyroidism, unspecified; I10 Essential (primary) hypertension; Z79.82 Long term (current) use of aspirin; W18.39XA Other fall on same level, initial encounter; Y92.019 Unspecified place in single-family (private) house as the place of occurrence of the external cause

== ENCOUNTER 2017-05-13 17:23 | Emergency (ER) | payer BC, OTHER ==
[~2017-05-13] VITALS: Ht 165.1 cm; Wt 80.8 kg
[~2017-05-13 17:23] MED LIST changes: -ATOR-14 PO; -FLUV100T2 PO; -LACT12CR TOP; +LPT10 PO; +LVX100 PO; +MECL1TAB42 PO; -MECL25TA2 PO; +MELO7.5T5 PO; -METR0.754 TOP; +MTRCR45 TOP; +MULT60CA PO; -ONDA4TAB46 SL; +PROP80CA PO; -PROP80TA2 PO; -RSTOPS OP; -ZOLP12.5 PO
[2017-05-13 17:45] VITALS: O2SAT 93
[2017-05-13] MEDS ORDERED: SODIUM CHLORIDE 0.9% 1000ML 1,000 ML IV ONE (17:57)
--- NOTE | 2017-05-13 18:02 | EMERGENCY ROOM VISIT NOTE ---
History Report prepared by Roland: Reyes Garcia Under the Supervision of: Dr. Cr Vann D.O. First contact with patient: 17:54 Chief Complaint: FEVER Stated Complaint: AB PAIN, FEVER History of Present Illness The patient is a 76 year old female who presents to the Emergency Room with complaints of a fever that began this evening. Her temperature in triage was 38.0 C. She was referred here by her doctor. At her baseline, she has abdominal pain with a history of hernias. She denies any cough, neck pain, chest pain, shortness of breath, or nausea. She denies any new medications. Source of History: patient Onset: this evening Position: other (global) Symptom Intensity: 38 C Quality: other (Fever) Timing: constant Associated Symptoms: + abdominal pain (Chronic), No cough, No chest pain, No SOB, No nausea Review of Systems See HPI for pertinent positives & negatives. A total of 10 systems reviewed and were otherwise negative. Past Medical & Surgical Medical Problems: (1) Arthritis (2) Cholecystitis (3) Hernia (4) Vertigo Surgical Problems: (1) H/O: hysterectomy (2) S/P cholecystectomy Family History Diabetes mellitus FH: cancer FH: heart disease Hypertension Seizures Social History Smoking Status: Never Smoker Alcohol Use: none Marital Status: Housing Status: lives alone Occupation Status: retired Current/Historical Medications Scheduled Aspirin (Aspirin Ec), 81 MG PO HS Atorvastatin (Atorvastatin Calcium), 10 MG PO DAILY Cyanocobalamin (Vitamin B-12), 1,000 MCG PO QAM Fluvoxamine Maleate (Fluvoxamine Maleate), 100 MG PO TID Hydrochlorothiazide (Hydrochlorothiazide), 12.5 MG PO QAM Levothyroxine Sodium (Synthroid), 100 MCG PO HS Metformin Hcl Er (Glucophage Er), 1,000 MG PO QAM Multiple Vitamins W/ Minerals (Preservision Areds 2), 1 CAP PO BID Propranolol Hcl (Propranolol Hcl Er), 80 MG PO HS Zolpidem Tartrate (Ambien Er), 12.5 MG PO HS Scheduled PRN Diazepam (Valium), 2 MG PO BID PRN for VERTIGO/TREMORS Meclizine Hcl (Meclizine Hcl), 1 TAB PO TID PRN for Dizziness or Vertigo Melatonin (Melatonin Maximum Strengt), 10 MG PO HS PRN for Sleep Meloxicam (Mobic), 7.5 MG PO DAILY PRN for Pain Metronidazole Hcl (Metronidazole), 1 APPLN TOP BID PRN for Allergies Coded Allergies: No Known Allergies (Unverified , 05/13/17) Physical Exam Vital Signs Date Time Temp Pulse Resp B/P (MAP) Pulse Ox O2 Delivery O2 Flow Rate FiO2 05/13/17 19:18 84 16 120/52 94 Room Air 05/13/17 17:45 93 Nasal Cannula 2.0 05/13/17 17:45 88 Room Air 05/13/17 17:28 38.0 86 16 133/67 93 Room Air Physical Exam GENERAL: Patient is awake, alert, and in no acute distress. Patient is resting comfortably and showing no signs of anxiety EYES: The conjunctivae are clear. The pupils are round and reactive. EARS, NOSE, MOUTH AND THROAT: The nose is without any evidence of any deformity. Mucous membranes are moist tongue is midline NECK: The neck is nontender and supple. RESPIRATORY: Normal respiratory effort is noted there is no evidence of wheezing rhonchi or rales CARDIOVASCULAR: Regular rate and rhythm noted there no murmurs rubs or gallops normal S1 normal S2 GASTROINTESTINAL: The abdomen is soft. Moderately distended. Bowel sounds are present in all quadrants. Abdomen tender in the RLQ in an area of known abdominal wall hernia. Patient states that this is not new or worsening compared to previous. MUSCULOSKELETAL/EXTREMITIES: There is no evidence of gross deformity full range of motion is noted in the hips and shoulders SKIN: There is no obvious evidence of any rash. There are no petechiae, pallor or cyanosis noted. NEUROLOGIC: Patient is awake alert and oriented x3 Medical Decision & Procedures ER Provider Diagnostic Interpretation: Radiology results as stated below per my review and radiologist interpretation: CHEST ONE VIEW PORTABLE CLINICAL HISTORY: Sepsis FEVER, ABDOMINAL PAIN. COMPARISON STUDY: 04/29/2017 FINDINGS: The heart is mildly enlarged. There is no focal pulmonary consolidation. There is mild interstitial prominence which may be related to technical factors. There is no overt failure. There are no pleural effusions. There is mild elevation/eventration left hemidiaphragm.[ IMPRESSION: AP portable study. Mild interstitial prominence but no evidence of overt failure. No evidence of focal pulmonary consolidation Electronically signed by: Aristides Cody M.D. 05/13/2017 6:17 PM Dictated Date/Time: 05/13/2017 6:[address] SCAN OF THE ABDOMEN AND PELVIS WITHOUT CONTRAST CLINICAL HISTORY: fever and right sided pain COMPARISON STUDY: 12/22/2015 TECHNIQUE: CT scan of the abdomen and pelvis was performed from the lung bases to the proximal femurs. Images are reviewed in the axial, sagittal, and coronal planes. IV contrast was not administered for this examination. A dose lowering technique was utilized adhering to the principles of ALARA. CT DOSE: 778.84 mGy.cm FINDINGS: Lower chest: There are bibasal atelectatic changes there is a small hiatal hernia Liver: There is hepatic steatosis. No focal masses are visualized in this noncontrast study Gallbladder: Surgically absent Spleen: Normal in size and attenuation. Pancreas: Unremarkable. Adrenal glands: Unremarkable. Kidneys: There is minor perinephric stranding. There is a left renal parapelvic cyst. No renal, ureteral, or bladder calculi are visualized. Bowel: Evaluation the bowel is limited secondary to the lack of intravenous and oral contrast. By history the appendix is surgically absent. There are no transition zones to indicate bowel obstruction. Lateral to the cecum involving what is likely the intra and extraperitoneal space, there is a 9 cm mass containing air and fluid. This is suspicious for a large abscess. The etiology of this abscess is not known. There is a calcification lateral to the cecum. This is contiguous with the inflammatory process. Diagnostic considerations include a pericecal diverticular abscess, or abscess secondary to a dropped appendicolith. If the history of appendectomy is incorrect, the findings could also be secondary to a perforated appendicitis with adjacent abscess. Peritoneum: There is no intraperitoneal free air or abdominal ascites. Vasculature: The abdominal aorta is normal in course and caliber. Adenopathy: None. Pelvic viscera: The uterus appears surgically absent. Skeletal structures: There are postsurgical changes present within the lumbar spine. IMPRESSION: 9 cm inflammatory mass lateral to the cecum, with probable extraperitoneal extension. The findings are most consistent with a large abscess. Electronically signed by: Aristides Cody M.D. 05/13/2017 6:52 PM Dictated Date/Time: 05/13/2017 6:44 PM Laboratory Results 05/13/17 17:44 Red Blood Count 4.10, Mean Corpuscular Volume 85.9, Mean Corpuscular Hemoglobin 27.8, Mean Corpuscular Hemoglobin Concent 32.4, Mean Platelet Volume 9.0, Neutrophils (%) (Auto) 67.2, Lymphocytes (%) (Auto) 9.4, Monocytes (%) (Auto) 20.9, Eosinophils (%) (Auto) 1.6, Basophils (%) (Auto) 0.1, Neutrophils # (Auto ) 5.71, Lymphocytes # (Auto) 0.80, Monocytes # (Auto) 1.78, Eosinophils # (Auto ) 0.14, Basophils # (Auto) 0.01 05/13/17 17:44 Test 05/13/17 17:44 05/13/17 17:54 White Blood Count 8.51 K/uL (4.8-10.8) Red Blood Count 4.10 M/uL (4.2-5.4) Hemoglobin 11.4 g/dL (12.0-16.0) Hematocrit 35.2 % (37-47) Mean Corpuscular Volume 85.9 fL (80-100) Mean Corpuscular Hemoglobin 27.8 pg (25-34) Mean Corpuscular Hemoglobin Concent 32.4 g/dl (32-36) Platelet Count 533 K/uL (130-400) Mean Platelet Volume 9.0 fL (7.4-10.4) Neutrophils (%) (Auto) 67.2 % Lymphocytes (%) (Auto) 9.4 % Monocytes (%) (Auto) 20.9 % Eosinophils (%) (Auto) 1.6 % Basophils (%) (Auto) 0.1 % Neutrophils # (Auto) 5.71 K/uL (1.4-6.5) Lymphocytes # (Auto) 0.80 K/uL (1.2-3.4) Monocytes # (Auto) 1.78 K/uL (0.11-0.59) Eosinophils # (Auto) 0.14 K/uL (0-0.5) Basophils # (Auto) 0.01 K/uL (0-0.2) RDW Standard Deviation 49.0 fL (36.4-46.3) RDW Coefficient of Variation 15.7 % (11.5-14.5) Immature Granulocyte % (Auto) 0.8 % Immature Granulocyte # (Auto) 0.07 K/uL (0.00-0.02) Erythrocyte Sedimentation Rate > 90 mm/hr (0-21) Prothrombin Time 10.3 SECONDS (9.0-12.0) Prothromb Time International Ratio 1.0 (0.9-1.1) Activated Partial Thromboplast Time 27.1 SECONDS (21.0-31.0) Partial Thromboplastin Ratio 1.0 Anion Gap 10.0 mmol/L (3-11) Est Creatinine Clear Calc Drug Dose 58.4 ml/min Estimated GFR () 76.1 Estimated GFR (Non- 65.6 BUN/Creatinine Ratio 14.2 (10-20) Calcium Level 8.9 mg/dl (8.5-10.1) Phosphorus Level 2.1 mg/dl (2.5-4.9) Magnesium Level 2.0 mg/dl (1.8-2.4) Total Bilirubin 0.2 mg/dl (0.2-1) Aspartate Amino Transf (AST/SGOT) 36 U/L (15-37) Alanine Aminotransferase (ALT/SGPT) 35 U/L (12-78) Alkaline Phosphatase 169 U/L (45-117) Total Creatine Kinase 35 U/L (26-192) Creatine Kinase MB < 0.5 ng/ml (0.5-3.6) Creatine Kinase MB Ratio (0-3.0) Troponin I < 0.015 ng/ml (0-0.045) C-Reactive Protein 24.80 mg/dl (0-0.29) Total Protein 6.7 gm/dl (6.4-8.2) Albumin 1.8 gm/dl (3.4-5.0) Globulin 4.9 gm/dl (2.5-4.0) Albumin/Globulin Ratio 0.4 (0.9-2) Lipase 124 U/L (73-393) Bedside Lactic Acid Venous 3.04 mmol/L (0.90-1.70) Laboratory results per my review. Medications Administered Medications (Trade) Dose Ordered Sig/Tiffanie Route Start Time Stop Time Status Last Admin Dose Admin Sodium Chloride 1,000 ml @ 999 mls/hr Q1H1M ONCE IV 05/13/17 17:57 05/13/17 18:57 DC 05/13/17 18:15 999 MLS/HR Piperacillin Sod/ Tazobactam Sod (Zosyn Iv) 4.5 gm NOW STAT IV 05/13/17 19:12 05/13/17 19:13 DC 05/13/17 19:25 4.5 GM ECG Indication: abdominal pain Rate (beats per minute): 83 Rhythm: normal sinus Findings: no ectopy, other (No STS abnormalities) Comparison ECG Date: 04/29/17 Change: no significant change ED Course 1753: The patient was evaluated in room C4. A complete history and physical examination were performed. 1756: Ordered NSS 1,000 ml @ 999 mls/hr IV 1911: Ordered Zosyn Iv 4.5 gm IV 1929: I discussed the patient's case with Dr. Metcalf of General Surgery. He will come evaluate the patient in the ER. 1999: Dr. Metcalf recommended that the patient be transferred to a tertiary care center for further evaluation and care. He will be contacting [facility]. Medical Decision Differential diagnosis: Etiologies such as viral syndrome, otitis, pharyngitis, pneumonia, influenza, meningitis, urinary tract infection, sepsis, bacteremia, as well as others were entertained. Nursing notes reviewed. The patient is a 76-year-old female who presented to the emergency department for an evaluation of abdominal pain and fever. The patient states her abdominal pain was not new and that she's had pain for a while however she felt as though she had worsening her pain recently. The patient was found have an elevated sedimentation rate as well as a fever. Because of her abdominal pain CT was ordered which did show significant findings including an intra-abdominal abscess. The patient was treated with IV fluids and IV antibiotics. I discussed the patient's laboratory and radiographic studies with her. I also discussed her case with the on-call general surgeon. They've agreed to evaluate the patient in emergency department. After evaluation they felt she would be better served at a tertiary center where they can do intervaginal radiology or possibly a percutaneous drainage of the abscess. I agree with this plan. I discussed the plan with the patient and her daughter. They were agreeable. The on-call general surgeon will call the receiving hospital for a receiving physician. Transfer paperwork was filled out by myself. Medication Reconcilliation Current Medication List: was personally reviewed by me Blood Pressure Screening Patient's blood pressure: Normal blood pressure Blood pressure disposition: Did not require urgent referral Consults Time Called: 1924 Consulting Physician: Dr. Metcalf - General Surgery Returned Call: 1929 We discussed the patients case. He will come to the ER and evaluate the patient. Additional Consults: Time Called: 1999 Consulted Physician: Dr. Metcalf - General Surgery Returned Call: 1999 Additional Comments: He recommends that the patient be transferred to a Tertiary Care Center for further evaluation and care. Impression Primary Impression: Fever Additional Impressions: Abdominal abscess Abdominal pain Abdominal wall hernia Scribe Attestation The scribe's documentation has been prepared under my direction and personally reviewed by me in its entirety. I confirm that the note above accurately reflects all work, treatment, procedures, and medical decision making performed by me. Departure Information Dispostion Transfer Acute Care Facility Referrals Pro,Cr Barth M.D. (PCP) Patient Instructions My [facility] Problem Qualifiers
[2017-05-13 18:04] VITALS: Ht 165.1 cm; Wt 80.8 kg
[2017-05-13 18:08] LABS: BASO % 0.1 %; BASO ABS # 0.01 K/uL (0-0.2); COMPLETE YES; EOS % 1.6 %; HEMATOCRIT 35.2 % (37-47); IG% 0.8 %; LYMPH % 9.4 %; MEAN CELL VOLUME 85.9 fL (80-100); MEAN CORPUSCULAR HEMOGLOBIN 27.8 pg (25-34); MEAN CORPUSCULAR HGB CONC 32.4 g/dl (32-36); MONO % 20.9 %; NEUT % 67.2 %; PLATELET COUNT 533 K/uL (130-400); WHITE BLOOD COUNT 8.51 K/uL (4.8-10.8)
--- NOTE | 2017-05-13 18:19 | DIAGNOSTIC IMAGING REPORT ---
CHEST ONE VIEW PORTABLE CLINICAL HISTORY: Sepsis FEVER, ABDOMINAL PAIN. COMPARISON STUDY: 04/29/2017 FINDINGS: The heart is mildly enlarged. There is no focal pulmonary consolidation. There is mild interstitial prominence which may be related to technical factors. There is no overt failure. There are no pleural effusions. There is mild elevation/eventration left hemidiaphragm.[ IMPRESSION: AP portable study. Mild interstitial prominence but no evidence of overt failure. No evidence of focal pulmonary consolidation Electronically signed by: Aristides Cody M.D. 05/13/2017 6:17 PM Dictated Date/Time: 05/13/2017 6:16 PM
[2017-05-13 18:28] LABS: BUN/CREATININE RATIO 14.2 (10-20); CALCIUM 8.9 mg/dl (8.5-10.1); CREATININE 0.86 mg/dl (0.60-1.20); POTASSIUM 3.6 mmol/L (3.5-5.1)
[2017-05-13 18:30] LABS: ALB/GLOB RATIO 0.4 (0.9-2)
--- NOTE | 2017-05-13 18:53 | DIAGNOSTIC IMAGING REPORT ---
CT SCAN OF THE ABDOMEN AND PELVIS WITHOUT CONTRAST CLINICAL HISTORY: fever and right sided pain COMPARISON STUDY: 12/22/2015 TECHNIQUE: CT scan of the abdomen and pelvis was performed from the lung bases to the proximal femurs. Images are reviewed in the axial, sagittal, and coronal planes. IV contrast was not administered for this examination. A dose lowering technique was utilized adhering to the principles of ALARA. CT DOSE: 778.84 mGy.cm FINDINGS: Lower chest: There are bibasal atelectatic changes there is a small hiatal hernia Liver: There is hepatic steatosis. No focal masses are visualized in this noncontrast study Gallbladder: Surgically absent Spleen: Normal in size and attenuation. Pancreas: Unremarkable. Adrenal glands: Unremarkable. Kidneys: There is minor perinephric stranding. There is a left renal parapelvic cyst. No renal, ureteral, or bladder calculi are visualized. Bowel: Evaluation the bowel is limited secondary to the lack of intravenous and oral contrast. By history the appendix is surgically absent. There are no transition zones to indicate bowel obstruction. Lateral to the cecum involving what is likely the intra and extraperitoneal space, there is a 9 cm mass containing air and fluid. This is suspicious for a large abscess. The etiology of this abscess is not known. There is a calcification lateral to the cecum. This is contiguous with the inflammatory process. Diagnostic considerations include a pericecal diverticular abscess, or abscess secondary to a dropped appendicolith. If the history of appendectomy is incorrect, the findings could also be secondary to a perforated appendicitis with adjacent abscess. Peritoneum: There is no intraperitoneal free air or abdominal ascites. Vasculature: The abdominal aorta is normal in course and caliber. Adenopathy: None. Pelvic viscera: The uterus appears surgically absent. Skeletal structures: There are postsurgical changes present within the lumbar spine. IMPRESSION: 9 cm inflammatory mass lateral to the cecum, with probable extraperitoneal extension. The findings are most consistent with a large abscess. Electronically signed by: Aristides Cody M.D. 05/13/2017 6:52 PM Dictated Date/Time: 05/13/2017 6:44 PM
[2017-05-13] MEDS ORDERED: ZOLP1TAB PO (18:57)
[2017-05-13] MEDS ORDERED: MELATAB2 PO (18:58)
[2017-05-13] MEDS ORDERED: PIPERACILLIN/TAZOBACTAM 4.5 GM/100ML D5W IV STA (19:12)
[2017-05-13 19:15] LABS: PROTHROMBIN TIME (PATIENT) 10.3 SECONDS (9.0-12.0)
[2017-05-13 19:59] LABS: PHOSPHORUS 2.1 mg/dl (2.5-4.9)
[2017-05-13] MEDS ORDERED: SODIUM CHLORIDE 0.9% 1000ML 1,000 ML IV STA (20:11)
--- NOTE | 2017-05-14 00:34 | CONSULTATION REPORT ---
DATE OF CONSULTATION: 05/13/2017 EMERGENCY ROOM CONSULT I have been asked by Dr. Vann to see this 76-year-old female who was brought to the Emergency Room from her personal senior care after having been evaluated for abdominal pain and found to have tenderness and a fever of 101.9. The patient has mild dementia and much of the history was obtained from the patient's daughter. The patient is at her baseline mental status. She stated that she told the caretakers that the place where she lives at she was having abdominal pain and was evaluated by the medical staff there who identified some erythema along the right lower abdominal wall along with tenderness there as well as a temperature of 101.9. The patient has denied nausea and vomiting over the last 2 weeks. She has been moving her bowels. There has been some diarrhea over the last day however. She denies melena and hematochezia. She has been able to eat. She has had multiple previous abdominal surgeries and was felt to have a hernia on the right side that was recurrent after having had 3 repairs, 2 appear to be her Pfannenstiel incision. PAST MEDICAL HISTORY: Includes hypercholesterolemia, diabetes type 2, hypertension, hypothyroidism, spinal stenosis, weakness of her lower extremities. PAST SURGICAL HISTORY: Breast reduction, laparoscopic cholecystectomy, TAHBSO, a lumbar spinal decompression as well as a fusion and repair of ventral hernia 3 times, the most recent of which was about 12 years ago and the daughter explained that a very large piece of mesh was placed at that time. MEDICATIONS: Included aspirin, atorvastatin, vitamin B12, fluvoxamine, hydrochlorothiazide, Synthroid, Glucophage, PreserVision, propranolol, and Ambien. ALLERGIES: None. PHYSICAL EXAMINATION: GENERAL: Reveals an elderly female who is lying comfortably and appears in no acute distress. Answers questions to the best of her ability. VITAL SIGNS: Blood pressure 120/52, heart rate 84, respirations 16, temperature 94, pulse oximetry is 94% on 2 liters nasal cannula. HEENT: Reveals the sclerae to be anicteric. Mucous membranes are moist. NECK: Supple with no adenopathy. BACK: Has no spinal or CVA tenderness. LUNGS: Clear. HEART: Regular. ABDOMEN: Has normoactive bowel sounds, is soft and nondistended. There is some erythema in the right lower abdominal wall with tenderness and fullness in that area. EXTREMITIES: Reveal no edema. LABORATORY DATA: WBC 8.51. H&H is 11.4 and 35.2, platelet count 533,000. Sodium 132, potassium 3.6, chloride 95, CO2 of 27, BUN 12, creatinine 0.86, glucose 153. Lactic acid 3.04, total bilirubin 0.2. AST 36, ALT 35, alkaline phosphatase 169, C-reactive protein is 24.8, troponin is less than 0.015. Lipase 124. CT scan of the abdomen and pelvis shows no evidence of a bowel obstruction. Lateral to the cecum involving what is likely the intra and extraperitoneal space is a 9 cm mass containing air and fluid, suspicious for a large abscess but the etiology was not clear by CT criteria. There was calcification lateral to the cecum. ASSESSMENT AND PLAN: This patient has an abscess. There was previously described a hernia in this area, but there was no bowel seen within the abscess cavity. This could be appendicitis with perforation and development of an abscess versus diverticular disease versus inflammatory bowel disease with perforation. I think that a percutaneous drainage would be indicated in this patient. We will transfer her for that procedure. This may also involve the previously placed mesh which would increase the complication of surgical intervention. Thank you for allowing me to see this patient and participate in her care.
[2017-05-14 02:03] VITALS: TEMP 37.7
[2017-05-14 07:23] VITALS: BP 100/48; PULSE 73; O2SAT 95
== END 2017-05-14 07:35 | disposition short-term general hospital (02) ==
LOC: EDBD 17:23 → C.EDC 17:25 → C.EDA 05-14 07:35
DX: R50.9 Fever, unspecified (principal); K65.1 Peritoneal abscess; K43.9 Ventral hernia without obstruction or gangrene; M19.90 Unspecified osteoarthritis, unspecified site; E03.9 Hypothyroidism, unspecified; E11.9 Type 2 diabetes mellitus without complications; E78.00 Pure hypercholesterolemia, unspecified; Z90.710 Acquired absence of both cervix and uterus; Z90.49 Acquired absence of other specified parts of digestive tract; Z83.3 Family history of diabetes mellitus; Z82.49 Family history of ischemic heart disease and other diseases of the circulatory system; Z82.0 Family history of epilepsy and other diseases of the nervous system; Z79.82 Long term (current) use of aspirin; Z79.84 Long term (current) use of oral hypoglycemic drugs; Z79.899 Other long term (current) drug therapy

== ENCOUNTER → 2018-03-19 | Outpatient (CLI) | payer BC ==
[~2018-03-19] MED LIST changes: +MELATAB2 PO; -METF500T5 PO; +ZOLP1TAB PO
[2018-03-19 13:19] LABS: HEMOGLOBIN A1C 7.8 % (4.5-5.6)
[2018-03-19 13:58] LABS: BLOOD UREA NITROGEN 16 mg/dl (7-18); CALCIUM 9.6 mg/dl (8.5-10.1); CARBON DIOXIDE 26 mmol/L (21-32); CHOLESTEROL 145 mg/dl (0-200); CREATININE 0.88 mg/dl (0.60-1.20); GLUCOSE 141 mg/dl (70-99); LDL CHOLESTEROL CALCULATED 57 mg/dl; POTASSIUM 4.1 mmol/L (3.5-5.1); SODIUM 138 mmol/L (136-145)
[2018-03-19 17:03] LABS: BASO % 0.4 %; BASO ABS # 0.04 K/uL (0-0.2); EOS % 7.2 %; EOS ABS # 0.75 K/uL (0-0.5); HEMATOCRIT 51.3 % (37-47); HEMOGLOBIN 16.3 g/dL (12.0-16.0); IG# 0.08 K/uL (0.00-0.02); LYMPH % 18.9 %; LYMPH ABS # 1.96 K/uL (1.2-3.4); MEAN CELL VOLUME 92.6 fL (80-100); MEAN CORPUSCULAR HEMOGLOBIN 29.4 pg (25-34); MEAN CORPUSCULAR HGB CONC 31.8 g/dl (32-36); MEAN PLATELET VOLUME 10.7 fL (7.4-10.4); MONO % 12.7 %; MONO ABS # 1.32 K/uL (0.11-0.59); NEUT ABS # 6.22 K/uL (1.4-6.5); PLATELET COUNT 319 K/uL (130-400); RED CELL DISTRIBUTION WIDTH CV 16.3 % (11.5-14.5); RED CELL DISTRIBUTION WIDTH SD 54.7 fL (36.4-46.3); WHITE BLOOD COUNT 10.37 K/uL (4.8-10.8)
== END | disposition home or self-care (01) ==
LOC: C.LABBC 09:54
PROVIDERS: ATTEND Internal Medicine
DX: R42 Dizziness and giddiness (principal); R53.83 Other fatigue; L02.211 Cutaneous abscess of abdominal wall; K35.2 Acute appendicitis with generalized peritonitis; K65.1 Peritoneal abscess; E03.9 Hypothyroidism, unspecified; E78.5 Hyperlipidemia, unspecified; I10 Essential (primary) hypertension; E11.9 Type 2 diabetes mellitus without complications

== ENCOUNTER 2022-07-12 16:23 | Inpatient (IN) ==
[2022-07-12] MEDS ORDERED: dexAMETHasone**PF** 10 MG/ML VIAL IV ONE (16:51)
[2022-07-12] MEDS ORDERED: SODIUM CHLORIDE 0.9% 1000ML 1,000 ML IV SCH (17:00)
--- NOTE | 2022-07-12 17:14 | Emergency Department Note ---
Impression & Plan COVID-19, Fall, CHI (closed head injury), Hypoxia, Acute UTI (urinary tract infection) ED Provider Note INFORMANT: Patient ED PROVIDER(S): Tyshawn Jacques MD CHIEF COMPLAINT: Hypoxia, COVID PLAN: Disposition: Admitted Condition: Good Outpatient prescription management: none Referral: None MEDICAL DECISION MAKING: Patient presented because of a positive COVID diagnosis and hypoxia. She was doing relatively well and responded nicely to supplemental nasal cannula oxygen. The patient's chest x-ray was unremarkable. She had CT imaging of the head and cervical spine done due to a fall. Thankfully no traumatic findings were noted. Patient's blood work did not reveal any significant issues. She did have an abnormal urinalysis. She was given IV Decadron. Consultation was made with Dr. Gustavo Garza of the [facility] service. Patient was evaluated in the ER for further management. Patient's urinalysis was treated with IV Rocephin. Triage Nursing notes reviewed and agree them. Vital Signs: reviewed and remarkable for no significant abnormalities Differential diagnosis: Infection, dehydration, metabolic abnormality, hypo/hyperglycemia, electrolyte disturbance, anemia, hypoxia, cardiac sources, intracerebral event, toxicologic, neurologic, as well as other pathologies. Diagnostics interpreted by me: ECG: Twelve-lead ECG reveals a normal sinus rhythm at 74 bpm. Left axis deviation. There is poor R wave progression anteriorly. There is some lateral ST and T wave abnormality present. No ST elevation. Cardiac Monitoring: Cardiac monitoring ordered by me: The patient was placed on continuous cardiac monitoring and observed. It revealed a normal sinus rhythm at 85 beats per minute without ectopy or evidence of dysrhythmia. Imaging studies: CT and chest x-ray as noted below. HPI: The patient is a 81year old female who presents to the Emergency Room with complaints of illness. Patient reportedly has COVID-19. She had a fall last night and again this morning reported by the staff at [facility]. The patient also notes the following associated symptoms, chest congestion, some mild shortness of breath, pain in the posterior scalp from hitting her head, generalized weakness. The patient has been given no medication for relieving factors. Curr ent pain is rated as 0/10. Patient was found to have a pulse oximetry of 86%. She responded to supplemental oxygen. Pt denies LOC, fevers, chills, diaphoresis, visual changes, neck pain, chest pain, nausea, vomiting, abdominal pain, back pain, melena, hematochezia, urinary symptoms, numbness, ly mphadenopathy, rash, or other complaints. ROS: See above HPI for pertinent positives & negatives. A total of 10 systems reviewed and were otherwise negative. PAST MEDICAL HISTORY:See Below , ventral hernia, hypothyroid, diabetes PAST SURGICAL HISTORY:See Below, FAMILY HISTORY:See Below SOCIAL HISTORY:See Below, retired. Resides at [facility]. HOME MEDICATIONS:See Below ALLERGIES:See Below VITALS:See Below PHYSICAL EXAMINATION: GENERAL: Awake, tired-appearing, in no distress HENT: Normocephalic, mild occipital contusion. Oropharynx unremarkable. EYES: Normal conjunctiva. Sclera non-icteric. NECK: Inspection normal. Non-tender. Supple. No nuchal rigidity. FROM. No masses. RESPIRATORY: Clear to auscultation. No wheezes. No rales. Normal respiratory effort. CARDIAC: Normal rate. Normal rhythm. No murmurs. No rubs. Extremities warm and well perfused. Pulses equal. No JVD. GI: Soft, non-distended. No tenderness to palpation. No rebound or guarding. No masses. RECTAL: Deferred. MUSCULOSKELETAL: Atraumatic. Chest examination reveals no tenderness. There is no CVA tenderness to palpation. No joint edema. LOWER EXTREMITIES: Calves are equal size bilaterally and non-tender. No edema. No discoloration. NEURO: Relatively normal sensorium. No focal sensory or motor deficits noted. SKIN: No rash or jaundice noted. Tyshawn Jacques MD Past Med/Surg History Medical History Arthritis Diabetes Hernia Hypothyroidism Insomnia Posterior tibial tendon dysfunction Vertigo Wound infection after surgery (09/19/13) Surgical History S/P cholecystectomy S/P hernia repair S/P hysterectomy with oophorectomy Status post breast reduction Status post lumbar laminectomy Family History Father Anxiety Bipolar disorder Stroke Grandfather (Maternal) Coronary heart disease Epilepsy Mother Coronary heart disease Hypertension Brother Coronary heart disease Hyperlipidemia Hypertension Parkinson disease Family/Other Myocardial infarction Daughter Melanoma Systemic lupus erythematosus Denies family history of Ovarian cancer Prostate cancer Breast cancer Colorectal cancer Social History Smoking Status: Never smoker Second Hand Exposure: No; Hx Alcohol Use: Yes Alcohol type: wine Hx Substance Use: No Preferred Language: Ukrainian Communication Ability: Effective Visual Impairment: Limited Hearing Ability: Normal marital status: / Current Living Situation: Personal Care Facility Current Living Situation Comment: [place] current occupational status: retired current occupation: retired elementary spanish teacher Feels Safe at Home: Yes Childhood Exposure to Second-Hand Smoke: No caffeine: Yes Dental Care, Regularly: Yes Physical Activity Frequency: Other Physical Activity Frequency Comment: limited by physical condition Seatbelt Use: always Sunscreen Use: Yes Assistive Devices: Glasses and Wheelchair Allergies Allergies Allergy/AdvReac Type Severity Reaction Status Date / Time pregabalin [From Lyrica] Allergy Unknown ON HEIDY Verified 07/12/22 17:30 [facility] MED LIST tramadol Allergy Unknown ON HEIDY Verified 07/12/22 17:30 [facility] MED LIST Home Meds Home Medications Medication Instructions Recorded Confirmed blood sugar diagnostic (FreeStyle #10 ea 03/25/19 05/24/22 Lite Strips) lancets 28 gauge (FreeStyle #25 ea 03/25/19 05/24/22 Lancets) aspirin 81 mg tablet,delayed 81 mg PO DAILY 05/20/19 07/12/22 release cholecalciferol (vitamin D3) 50 2,000 units PO DAILY 07/14/19 07/12/22 mcg (2,000 unit) tablet artificial tears(hypromellose) 0.4 1 drp OPB QID 07/12/22 07/12/22 % eye drops cyclosporine 0.05 % eye drops in a 1 drp OPB BID 07/12/22 07/12/22 dropperette (Restasis) dextromethorphan-guaifenesin 20 20 ml PO Q6H PRN Cough 07/12/22 07/12/22 mg-200 mg/5 mL oral liquid docusate sodium 250 mg capsule 250 mg PO Q24H PRN Constipation 07/12/22 07/12/22 fluoride (sodium) 1.1 % dental gel 1 applic dental BID 07/12/22 07/12/22 (PreviDent) glimepiride 1 mg tablet 1 mg PO QAM 07/12/22 07/12/22 metronidazole 0.75 % topical cream 1 applic topical BID 07/12/22 07/12/22 multivitamin (Daily-Huy tablet) 1 tab PO DAILY 07/12/22 07/12/22 nitrofurantoin macrocrystal 100 mg 100 mg PO DAILY 07/12/22 07/12/22 capsule omega-3 fatty acids 300 mg capsule 600 mg PO DAILY 07/12/22 07/12/22 sodium chloride 0.65 % nasal spray 2 spray intranasal Q1H PRN NASAL 07/12/22 07/12/22 aerosol (Saline Nasal) DRYNESS Previous Rx's Medication Instructions Recorded vitamins A,C,M-dqtw-twwgls 14,320 1 cap PO BID #90 caps 10/07/20 unit-226 mg-200 unit capsule (PreserVision AREDS) cyanocobalamin (vitamin B-12) 2,500 mcg sublingual DAILY #30 tabs 03/30/21 2,500 mcg sublingual tablet hydrochlorothiazide 12.5 mg tablet 12.5 mg PO DAILY PRN edema #90 tabs 05/08/21 ibuprofen 600 mg tablet 600 mg PO Q6H PRN pain #120 tabs 06/20/21 acetaminophen 500 mg tablet 1,000 mg PO Q4H PRN fever or pain 11/14/21 #120 tabs fluvoxamine 100 mg tablet 100 mg PO TID 90 days #270 tabs 12/18/21 atorvastatin 10 mg tablet 10 mg PO DAILY #90 tabs 12/21/21 metformin 500 mg tablet,extended 500 mg PO BID #180 tabs 01/12/22 release 24hr mirabegron 50 mg tablet,extended 50 mg PO DAILY #30 tabs 01/18/22 release 24 hr (Myrbetriq) propranolol 80 mg capsule,24 80 mg PO DAILY #30 caps 02/20/22 hr,extended release famotidine 20 mg tablet 20 mg PO BID #180 tabs 03/21/22 meclizine 12.5 mg tablet 12.5 mg PO QAM #90 tabs 04/10/22 meclizine 25 mg tablet 25 mg PO QPM #90 tabs 04/27/22 zolpidem 12.5 mg tablet,extended 12.5 mg PO HS #30 tabs 05/08/22 release,multiphase levocetirizine 5 mg tablet (Xyzal) 5 mg PO DAILY #90 tabs 05/09/22 levothyroxine 100 mcg tablet 100 mcg PO DAILY #90 tabs 06/06/22 psyllium seed (sugar) oral powder 1 tbsp PO DAILY #1,254 grams 07/09/22 (Metamucil (sugar) oral powder) molnupiravir 200 mg capsule (EUA) 800 mg PO Q12H 5 days #40 caps 07/10/22 Results & Data (ED) Vital Signs Vital Signs - 24 hr 07/12/22 16:25 07/12/22 17:22 07/12/22 16:36 Temperature 37.2 C Temperature Source Oral Pulse Rate 81 79 Pulse Rate [Apical] Pulse Rate from SpO2 Sensor 78 Respiratory Rate 21 25 H Respiratory Effort / Characteristics Non-Labored Spontaneous Respiratory Depth Normal Respiratory Pattern Regular Blood Pressure 150/78 H Blood Pressure [Left Arm] Blood Pressure Mean 102 Blood Pressure Mean [Left Arm] Blood Pressure Position Lying Pulse Oximetry 90 95 88 L Oxygen Delivery Method Room Air Nasal Cannula Room Air Oxygen Flow Rate 2 Sepsis Recent Fever Within 48 Hours Yes Sepsis New/Unexplained Change in Mental Status No Sepsis Action Taken by Nursing No Action Required 07/12/22 17:00 07/12/22 17:30 07/12/22 17:30 Temperature Temperature Source Pulse Rate 75 75 Pulse Rate [Apical] Pulse Rate from SpO2 Sensor 75 76 Respiratory Rate 24 23 Respiratory Effort / Characteristics Respiratory Depth Respiratory Pattern Blood Pressure 158/77 H Blood Pressure [Left Arm] Blood Pressure Mean 104 Blood Pressure Mean [Left Arm] Blood Pressure Position Pulse Oximetry 95 95 Oxygen Delivery Method Nasal Cannula Nasal Cannula Oxygen Flow Rate 2 2 Sepsis Recent Fever Within 48 Hours Sepsis New/Unexplained Change in Mental Status Sepsis Action Taken by Nursing 07/12/22 18:00 07/12/22 19:00 Temperature Temperature Source Pulse Rate 76 Pulse Rate [Apical] 81 Pulse Rate from SpO2 Sensor 76 Respiratory Rate 24 19 Respiratory Effort / Characteristics Non-Labored Spontaneous Respiratory Depth Normal Respiratory Pattern Blood Pressure Blood Pressure [Left Arm] 150/69 H Blood Pressure Mean Blood Pressure Mean [Left Arm] 96 Blood Pressure Position Pulse Oximetry 97 97 Oxygen Delivery Method Nasal Cannula Room Air Oxygen Flow Rate 2 Sepsis Recent Fever Within 48 Hours Sepsis New/Unexplained Change in Mental Status Sepsis Action Taken by Nursing Laboratory Data Result diagrams: 07/12/22 17:06 07/12/22 17:06 Lab Results 07/12/22 07/12/22 07/12/22 Range/Units 17:06 17:06 17:06 WBC 6.48 (4.8-10.8) K/ul RBC 4.74 (3.93-5.22) M/uL Hgb 14.0 (12.0-16.0) g/dl Hct 43.9 (34.1-44.9) % MCV 92.6 (80.0-100.0) fL MCH 29.5 (25.0-34.0) pg MCHC 31.9 L (32.0-36.0) g/dL RDW Std Deviation 51.0 H (36.4-46.3) fL RDW Coeff of Blair 14.9 H (11.5-14.5) % Plt Count 256 (130-400) K/uL MPV 10.6 (9.4-12.3) fL Immature Gran % (Auto) 0.6 % Neut % (Auto) 60.2 % Lymph % (Auto) 24.1 % [place] % (Auto) 12.0 % Eos % (Auto) 2.6 % Baso % (Auto) 0.5 % Neut # (Auto) 3.90 (1.4-6.5) K/uL Lymph # (Auto) 1.56 (1.2-3.4) K/uL [place] # (Auto) 0.78 (0.24-0.82) K/uL Eos # (Auto) 0.17 (0-0.50) K/uL Baso # (Auto) 0.03 (0-0.2) K/uL Immature Gran # (Auto) 0.04 H (0.00-0.02) K/uL Sodium 143 (136-145) mmol/L Potassium 3.5 (3.5-5.1) mmol/L Chloride 108 H (98-107) mmol/L Carbon Dioxide 26 (21-32) mmol/L Anion Gap 9 (3-11) BUN 26 H (6-23) mg/dl Creatinine 1.07 (0.6-1.2) mg/dl Est Cr Clr Drug Dosing 43.0 ml/min Est GFR ( Amer) 56.4 ml/min Est GFR (Non-Af Amer) 48.6 ml/min BUN/Creatinine Ratio 24.3 H (10-20) Glucose 149 H (70-99(Fasting)) mg/dl Lactate 1.8 (0.4-2.0) mmol/L Calcium 9.1 (8.5-10.1) mg/dl Magnesium 1.7 (1.7-2.4) mg/dl Total Bilirubin 0.4 (0.2-1.0) mg/dl AST 62 H (13-39) U/L ALT 58 H (7-52) U/L Alkaline Phosphatase 110 H (34-104) U/L Total Creatine Kinase 49 (26-192) U/L Troponin I High Sens 6.9 (0-14) pg/ml Total Protein 6.4 (6.0-8.3) gm/dl Albumin 3.8 (3.4-5.0) gm/dl Globulin 2.6 (2.5-4.0) gm/dl Albumin/Globulin Ratio 1.5 (0.9-2) Procalcitonin (0-0.5) ng/ml TSH (0.300-4.500) uIu/ml Urine Color Urine Appearance (Clear) Urine pH (4.5-7.5) Ur Specific Hobson (1.000-1.030) Urine Protein (Negative) Urine Glucose (UA) (Negative) Urine Ketones (Negative) Urine Blood (Negative) Urine Nitrite (Negative) Urine Bilirubin (Negative) Urine Urobilinogen (Negative) Ur Leukocyte Esterase (Negative) Urine WBC (Auto) (0-5) /hpf Urine RBC (Auto) (0-4) /hpf U Hyaline Cast (Auto) (0-5) /lpf U Epithel Cells (Auto) (0-5) /lpf Urine Bacteria (Auto) (Negative) Urine Yeast SARS-CoV-2, RNA, NAAT (NEGATIVE) 07/12/22 07/12/22 07/12/22 Range/Units 17:06 17:06 17:17 WBC (4.8-10.8) K/ul RBC (3.93-5.22) M/uL Hgb (12.0-16.0) g/dl Hct (34.1-44.9) % MCV (80.0-100.0) fL MCH (25.0-34.0) pg MCHC (32.0-36.0) g/dL RDW Std Deviation (36.4-46.3) fL RDW Coeff of Blair (11.5-14.5) % Plt Count (130-400) K/uL MPV (9.4-12.3) fL Immature Gran % (Auto) % Neut % (Auto) % Lymph % (Auto) % [place] % (Auto) % Eos % (Auto) % Baso % (Auto) % Neut # (Auto) (1.4-6.5) K/uL Lymph # (Auto) (1.2-3.4) K/uL [place] # (Auto) (0.24-0.82) K/uL Eos # (Auto) (0-0.50) K/uL Baso # (Auto) (0-0.2) K/uL Immature Gran # (Auto) (0.00-0.02) K/uL Sodium (136-145) mmol/L Potassium (3.5-5.1) mmol/L Chloride (98-107) mmol/L Carbon Dioxide (21-32) mmol/L Anion Gap (3-11) BUN (6-23) mg/dl Creatinine (0.6-1.2) mg/dl Est Cr Clr Drug Dosing ml/min Est GFR ( Amer) ml/min Est GFR (Non-Af Amer) ml/min BUN/Creatinine Ratio (10-20) Glucose (70-99(Fasting)) mg/dl Lactate (0.4-2.0) mmol/L Calcium (8.5-10.1) mg/dl Magnesium (1.7-2.4) mg/dl Total Bilirubin (0.2-1.0) mg/dl AST (13-39) U/L ALT (7-52) U/L Alkaline Phosphatase (34-104) U/L Total Creatine Kinase (26-192) U/L Troponin I High Sens (0-14) pg/ml Total Protein (6.0-8.3) gm/dl Albumin (3.4-5.0) gm/dl Globulin (2.5-4.0) gm/dl Albumin/Globulin Ratio (0.9-2) Procalcitonin < 0.05 (0-0.5) ng/ml TSH 1.834 (0.300-4.500) uIu/ml Urine Color Urine Appearance (Clear) Urine pH (4.5-7.5) Ur Specific [place] (1.000-1.030) Urine Protein (Negative) Urine Glucose (UA) (Negative) Urine Ketones (Negative) Urine Blood (Negative) Urine Nitrite (Negative) Urine Bilirubin (Negative) Urine Urobilinogen (Negative) Ur Leukocyte Esterase (Negative) Urine WBC (Auto) (0-5) /hpf Urine RBC (Auto) (0-4) /hpf U Hyaline Cast (Auto) (0-5) /lpf U Epithel Cells (Auto) (0-5) /lpf Urine Bacteria (Auto) (Negative) Urine Yeast SARS-CoV-2, RNA, NAAT POSITIVE A* (NEGATIVE) 07/12/22 Range/Units 19:39 WBC (4.8-10.8) K/ul RBC (3.93-5.22) M/uL Hgb (12.0-16.0) g/dl Hct (34.1-44.9) % MCV (80.0-100.0) fL MCH (25.0-34.0) pg MCHC (32.0-36.0) g/dL RDW Std Deviation (36.4-46.3) fL RDW Coeff of Blair (11.5-14.5) % Plt Count (130-400) K/uL MPV (9.4-12.3) fL Immature Gran % (Auto) % Neut % (Auto) % Lymph % (Auto) % [place] % (Auto) % Eos % (Auto) % Baso % (Auto) % Neut # (Auto) (1.4-6.5) K/uL Lymph # (Auto) (1.2-3.4) K/uL [place] # (Auto) (0.24-0.82) K/uL Eos # (Auto) (0-0.50) K/uL Baso # (Auto) (0-0.2) K/uL Immature Gran # (Auto) (0.00-0.02) K/uL Sodium (136-145) mmol/L Potassium (3.5-5.1) mmol/L Chloride (98-107) mmol/L Carbon Dioxide (21-32) mmol/L Anion Gap (3-11) BUN (6-23) mg/dl Creatinine (0.6-1.2) mg/dl Est Cr Clr Drug Dosing ml/min Est GFR ( Amer) ml/min Est GFR (Non-Af Amer) ml/min BUN/Creatinine Ratio (10-20) Glucose (70-99(Fasting)) mg/dl Lactate (0.4-2.0) mmol/L Calcium (8.5-10.1) mg/dl Magnesium (1.7-2.4) mg/dl Total Bilirubin (0.2-1.0) mg/dl AST (13-39) U/L ALT (7-52) U/L Alkaline Phosphatase (34-104) U/L Total Creatine Kinase (26-192) U/L Troponin I High Sens (0-14) pg/ml Total Protein (6.0-8.3) gm/dl Albumin (3.4-5.0) gm/dl Globulin (2.5-4.0) gm/dl Albumin/Globulin Ratio (0.9-2) Procalcitonin (0-0.5) ng/ml TSH (0.300-4.500) uIu/ml Urine Color Dark Yellow Urine Appearance Cloudy A (Clear) Urine pH 5.0 (4.5-7.5) Ur Specific [place] 1.027 (1.000-1.030) Urine Protein Trace H (Negative) Urine Glucose (UA) Negative (Negative) Urine Ketones Trace H (Negative) Urine Blood Negative (Negative) Urine Nitrite Positive A (Negative) Urine Bilirubin Negative (Negative) Urine Urobilinogen Negative (Negative) Ur Leukocyte Esterase Negative (Negative) Urine WBC (Auto) 5-10 H (0-5) /hpf Urine RBC (Auto) 0-4 (0-4) /hpf U Hyaline Cast (Auto) 0 (0-5) /lpf U Epithel Cells (Auto) 10-20 H (0-5) /lpf Urine Bacteria (Auto) 3+ H (Negative) Urine Yeast Not Reportable SARS-CoV-2, RNA, NAAT (NEGATIVE) Administered Medications Famotidine (Famotidine 20 Mg Tab) 20 mg PO BID RENO Stop: 08/11/22 22:55 Last Admin: 07/13/22 00:14 Dose: 20 mg Documented By: MARY ALICE Fluvoxamine Maleate (Fluvoxamine Maleate 50 Mg Tab) 100 mg PO TID RENO Stop: 08/11/22 22:55 Last Admin: 07/13/22 00:13 Dose: 100 mg Documented By: MARY ALICE Guaifenesin (Guaifenesin 600 Mg Tabcr) 600 mg PO Q12 RENO Stop: 08/11/22 20:59 Last Admin: 07/13/22 00:14 Dose: 600 mg Documented By: MARY ALICE Guaifenesin (Guaifenesin Sugar Free 100 Mg/5 Ml Udc) 100 mg PO Q6H PRN PRN Reason: Cough Stop: 08/11/22 20:31 Last Admin: 07/12/22 21:07 Dose: 100 mg Documented By: KENDALL Sodium Chloride (Nss 1000ml) 1,000 mls @ 125 mls/hr IV .Q8H RENO Stop: 07/13/22 00:59 Last Admin: 07/12/22 17:48 Dose: 125 mls/hr Documented By: FANTASMA Insulin Aspart (Insulin Aspart Per Unit) 0 units SC ACHS RENO Stop: 08/11/22 22:55 Last Admin: 07/13/22 00:07 Dose: 2 units Documented By: MARY ALICE Co-signed By: ROB Insulin Glargine (Lantus Per Unit Charge) 5 units SQ BID RENO Stop: 08/11/22 22:55 Last Admin: 07/13/22 00:08 Dose: 5 units Documented By: MARY ALICE Co-signed By: ROB Meclizine HCl (Meclizine Hcl 25 Mg Tab) 25 mg PO QPM RENO Stop: 08/11/22 22:55 Last Admin: 07/13/22 00:13 Dose: 25 mg Documented By: MARY ALICE Discontinued Medications Albuterol (Albuterol 0.083% Nebu Soln 3 Ml Vial) Confirm Administered Dose 2.5 mg .ROUTE .STK-MED ONE Stop: 07/12/22 23:16 Last Admin: 07/13/22 00:21 Dose: 2.5 mg Documented By: RADHA Dexamethasone Sodium Phosphate (DexamethasonePf 10 Mg/Ml Vial) 6 mg IV NOW ONE Stop: 07/12/22 16:52 Last Admin: 07/12/22 17:48 Dose: 6 mg Documented By: FANTASMA Remdesivir 200 mg/ Sodium (Chloride) 250 mls @ 125 mls/hr IV ONE STA; Protocol Stop: 07/12/22 22:19 Last Infusion: 07/13/22 00:30 Dose: 0 mls/hr Documented By: MARY ALICE Admin: 07/12/22 21:08 Dose: 125 mls/hr Documented By: KENDALL Imaging Data Radiologist's Impression: Cervical Spine CT 07/12/22 16:51 CT SCAN OF THE CERVICAL SPINE CLINICAL HISTORY: Fall. Neck pain. COMPARISON STUDY: CT of the cervical spine dated 04/29/2017. TECHNIQUE: CT scan of the cervical spine is performed from the skull base to the upper thoracic spine. Images are reviewed in the axial, sagittal, and coronal planes. IV contrast was not administered for this examination. A dose lowering technique was utilized adhering to the principles of ALARA. CT DOSE: 1046.94 mGy.cm FINDINGS: Skeletal structures: The skeletal structures are osteopenic. There is no evidence of fracture or subluxation involving the cervical spine. Vertebral body height is maintained. There is minimal anterolisthesis at C7-T1. Alignment is otherwise preserved. There is straightening of the cervical lordosis with mild reversal centered at C4-C5. Anterior osteophytes are seen throughout. The odontoid process and lateral masses are intact. The atlantoaxial articulation is preserved noting productive degenerative change. The spinous processes appear intact. There is moderate to advanced multilevel cervical spondylosis. Uncovertebral and facet arthropathy contribute to neural foraminal narrowing at most levels. Intervertebral discs: Moderate to severe disc space narrowing is seen at all cervical levels between C3-C4 and C6-C7. Central canal: Posterior disc osteophyte complexes are seen all levels between C3-C4 and C6-C7. This likely contributes to multilevel acquired compromise of the central canal. Soft tissues: The prevertebral and paraspinous soft tissues are within normal limits. The thyroid gland is atrophic. Atherosclerotic calcification is noted in the carotid bulbs. Calvarium: The visualized calvarium at the skull base appears intact. Brain parenchyma: Partially visualized brain parenchyma at the skull base is within normal limits. Sinuses and mastoids: The visualized paranasal sinuses are clear. The mastoid air cells are well pneumatized. Lung apices: The partially imaged right apex is grossly clear. IMPRESSION: 1. There is no evidence of fracture or subluxation involving the cervical spine. 2. Osteopenia and spondylotic change as above. ACT 112: Negative or not required by law. Electronically signed by: Lynodn Ho M.D. 07/12/2022 7:03 PM Chest X-Ray 07/12/22 16:51 SINGLE VIEW CHEST CLINICAL HISTORY: General weakness. Fall. FINDINGS: An AP, portable, upright chest radiograph is compared to study dated 05/13/2017. The examination is degraded by portable technique and apical lordotic positioning. The cardiomediastinal silhouette is top normal for projection. Ch ronic interstitial thickening similar to previous. There is bibasilar scarring/atelectasis. No airspace consolidation or large pleural effusion is identified. No pneumothorax is seen. The skeletal structures are osteopenic. There are chronic/healed right-sided rib fractures. IMPRESSION: No acute cardiopulmonary abnormality. ACT 112: Negative or not required by law. Electronically signed by: Lyndon Ho M.D. 07/12/2022 6:[address] 07/12/22 16:51 CT SCAN OF THE BRAIN WITHOUT IV CONTRAST CLINICAL HISTORY: Fall. COMPARISON STUDY: CT of the brain dated 04/29/2017. TECHNIQUE: Unenhanced axial CT scan of the brain is performed from the vertex to the skull base. A dose lowering technique was utilized adhering to the principles of ALARA. FINDINGS: Brain parenchyma: There is age-related involutional change noting moderate subcortical and periventricular microangiopathic disease. There is no hemorrhage, mass effect, or evidence of acute territorial ischemia by CT criteria. Villagomez-white matter differentiation is preserved. No extra-axial fluid collection is seen. Ventricles, sulci, cisterns: Prominent secondary to involutional change. Intracranial vasculature: There is atherosclerotic calcification of the c avernous carotid and vertebral arteries. Calvarium: The skeletal structures are osteopenic. No depressed calvarial fracture is identified. Soft tissues: There is minimal right posterior scalp contusion. Sinuses and mastoids: There is mild mucosal thickening within the maxillary antra and ethmoid sinuses. The mastoid air cells are well pneumatized. Orbits: The bony orbits are grossly intact. There are bilateral ocular lens implants. IMPRESSION: There is no hemorrhage, mass effect, or evidence of acute territorial ischemia by CT criteria. ACT 112: Negative or not required by law. Electronically signed by: Lyndon Ho M.D. 07/12/2022 6:51 PM Discharge Plan Visit Data Chief Complaint: Illness Stated Complaint: HYPOXIA, HEAD PAIN, COVID + ED Provider: Tyshawn Jacques Discharge Problem: COVID-19, Fall, CHI (closed head injury), Hypoxia, Acute UTI (urinary tract infection) Patient Disposition: Admitted As Inpatient Discharge Instructions Interventions: ED Discharge Assessment Last Done: 07/12/22 23:04
[2022-07-12 17:28] LABS: Basophils # (auto) 0.03 K/uL (0-0.2); Basophils % (auto) 0.5 %; Eosinophils # (auto) 0.17 K/uL (0-0.50); Eosinophils % (auto) 2.6 %; Hematocrit (blood only) 43.9 % (34.1-44.9); Immature Granulocytes # (auto) 0.04 K/uL (0.00-0.02); Immature Granulocytes % (auto) 0.6 %; Lymphocytes # (auto) 1.56 K/uL (1.2-3.4); Lymphocytes % (auto) 24.1 %; Mean Corpuscular Hemoglobin 29.5 pg (25.0-34.0); Mean Corpuscular Hgb Conc 31.9 g/dL (32.0-36.0); Mean Corpuscular Volume 92.6 fL (80.0-100.0); Mean Platelet Volume 10.6 fL (9.4-12.3); Monocytes # (auto) 0.78 K/uL (0.24-0.82); Neutrophils % (auto) 60.2 %; Platelet Count 256 K/uL (130-400); RDW Coefficient of Variation 14.9 % (11.5-14.5); Red Blood Count 4.74 M/uL (3.93-5.22); White Blood Count 6.48 K/ul (4.8-10.8)
[2022-07-12 17:49] LABS: Albumin Globulin Ratio 1.5 (0.9-2); Albumin Level 3.8 gm/dl (3.4-5.0); BUN Creatinine Ratio 24.3 (10-20); Bilirubin,Total 0.4 mg/dl (0.2-1.0); Calcium 9.1 mg/dl (8.5-10.1); Est GFR (African American) 56.4 ml/min; Est GFR (Non-African American) 48.6 ml/min; Globulin 2.6 gm/dl (2.5-4.0); Magnesium 1.7 mg/dl (1.7-2.4); Potassium 3.5 mmol/L (3.5-5.1); Total Protein 6.4 gm/dl (6.0-8.3)
[2022-07-12 17:54] LABS: Troponin I High Sensitivity 6.9 pg/ml (0-14)
--- NOTE | 2022-07-12 18:04 | XRay Report ---
SINGLE VIEW CHEST CLINICAL HISTORY: General weakness. Fall. FINDINGS: An AP, portable, upright chest radiograph is compared to study dated 05/13/2017. The examina tion is degraded by portable technique and apical lordotic positioning. The cardiomediastinal silhoue tte is top normal for projection. Chronic interstitial thickening similar to previous. There is bibas ilar scarring/atelectasis. No airspace consolidation or large pleural effusion is identified. No pneu mothorax is seen. The skeletal structures are osteopenic. There are chronic/healed right-sided rib fr actures. IMPRESSION: No acute cardiopulmonary abnormality. ACT 112: Negative or not required by law. Electronically signed by: Lyndon Ho M.D. 07/12/2022 6:03 PM
--- NOTE | 2022-07-12 18:53 | CT Scan Report ---
CT SCAN OF THE BRAIN WITHOUT IV CONTRAST CLINICAL HISTORY: Fall. COMPARISON STUDY: CT of the brain dated 04/29/2017. TECHNIQUE: Unenhanced axial CT scan of the brain is performed from the vertex to the skull base. A do se lowering technique was utilized adhering to the principles of ALARA. FINDINGS: Brain parenchyma: There is age-related involutional change noting moderate subcortical and periventri cular microangiopathic disease. There is no hemorrhage, mass effect, or evidence of acute territorial ischemia by CT criteria. Villagomez-white matter differentiation is preserved. No extra-axial fluid collec tion is seen. Ventricles, sulci, cisterns: Prominent secondary to involutional change. Intracranial vasculature: There is atherosclerotic calcification of the cavernous carotid and vertebr al arteries. Calvarium: The skeletal structures are osteopenic. No depressed calvarial fracture is identified. Soft tissues: There is minimal right posterior scalp contusion. Sinuses and mastoids: There is mild mucosal thickening within the maxillary antra and ethmoid sinuses . The mastoid air cells are well pneumatized. Orbits: The bony orbits are grossly intact. There are bilateral ocular lens implants. IMPRESSION: There is no hemorrhage, mass effect, or evidence of acute territorial ischemia by CT maggie fernandez. ACT 112: Negative or not required by law. Electronically signed by: Lyndon Ho M.D. 07/12/2022 6:51 PM
--- NOTE | 2022-07-12 19:05 | CT Scan Report ---
CT SCAN OF THE CERVICAL SPINE CLINICAL HISTORY: Fall. Neck pain. COMPARISON STUDY: CT of the cervical spine dated 04/29/2017. TECHNIQUE: CT scan of the cervical spine is performed from the skull base to the upper thoracic spine . Images are reviewed in the axial, sagittal, and coronal planes. IV contrast was not administered fo r this examination. A dose lowering technique was utilized adhering to the principles of ALARA. CT DOSE: 1046.94 mGy.cm FINDINGS: Skeletal structures: The skeletal structures are osteopenic. There is no evidence of fracture or subl uxation involving the cervical spine. Vertebral body height is maintained. There is minimal anteroli sthesis at C7-T1. Alignment is otherwise preserved. There is straightening of the cervical lordosis w ith mild reversal centered at C4-C5. Anterior osteophytes are seen throughout. The odontoid process a nd lateral masses are intact. The atlantoaxial articulation is preserved noting productive degenerati ve change. The spinous processes appear intact. There is moderate to advanced multilevel cervical spo ndylosis. Uncovertebral and facet arthropathy contribute to neural foraminal narrowing at most levels . Intervertebral discs: Moderate to severe disc space narrowing is seen at all cervical levels between C3-C4 and C6-C7. Central canal: Posterior disc osteophyte complexes are seen all levels between C3-C4 and C6-C7. This likely contributes to multilevel acquired compromise of the central canal. Soft tissues: The prevertebral and paraspinous soft tissues are within normal limits. The thyroid gla nd is atrophic. Atherosclerotic calcification is noted in the carotid bulbs. Calvarium: The visualized calvarium at the skull base appears intact. Brain parenchyma: Partially visualized brain parenchyma at the skull base is within normal limits. Sinuses and mastoids: The visualized paranasal sinuses are clear. The mastoid air cells are well pneu matized. Lung apices: The partially imaged right apex is grossly clear. IMPRESSION: 1. There is no evidence of fracture or subluxation involving the cervical spine. 2. Osteopenia and spondylotic change as above. ACT 112: Negative or not required by law. Electronically signed by: Lyndon Ho M.D. 07/12/2022 7:03 PM
--- NOTE | 2022-07-12 19:33 | History & Physical Report ---
Date of Service July 12, 2022 Assessment & Plan (1) COVID-19: Plan: -Admit to med/tele -Patient is currently afebrile, hemodynamically stable, and stable on 2L NC -Was diagnosed yesterday at [facility], has received covid vaccine and boosters, was started on molnupiravir by her PCP yesterday -Patient does note yellow sputum production but no infiltrates on CXR and procal was negative, will hold antibiotics for now -Was given one dose of 6 mg IV dexamethasone in the ED prior to admission, will continue with Dexamethasone and remdesivir for now as she qualifies and she and her family would like to start both -Will add incentive spirometry, flutter therapy, and prn albuterol -Monitor on tele and pulse oximetry, titrate O2 to keep SpO2 equal to or greater than 95% -Will hold molnupiravir since she is now inpatient and will be receiving remdesivir -AM CBC and CMP (2) Hypoxia: Plan: -See covid-19 (3) Fall: Plan: -Patient sustained two falls over the past week, first was out of beat when she hit her head, the second was today without hitting head -Of note, she was found to have confusion more than baseline prior to her first fall on 07/10 -Trauma workup here today including CT of the head were negative for acture trauma -Fall precautions ordered (4) Elevated LFTs: Plan: -AST noted to be 62 today (was 48 on 05/25/22), ALT at 58 (was 53 on 05/25), and alk phos at 110 (was 126 on 05/25). -No abdominal pain or other symptoms to suggest acute hepatobiliary issue -Increase today likely due to acute covid infection -Continue to monitor daily am CMP (5) Diabetes: Plan: -Hold metformin and glimepiride -Will start with Lantus at 5 units BID -Correction factor of 50 and carb ratio of 16 -Goal for now will be 110-160 -Patient will likely need an increase in her regimen due to dexamethasone, increase as needed -Consistent carb diet (6) Mixed incontinence urge and stress: Plan: -Continue Mirabegron (7) Swallowing dysfunction: Plan: -Will order minced and moist diet (8) Vertigo: Plan: -Continue meclizine (9) Hypothyroidism: Plan: -Continue levothyroxine (10) Insomnia: Plan: -Noted to be on Zolpidem outpatient -Will try melatonin for now Plan The patient was discussed with Dr. Leon at the time of the admission History of Present Illness Chief Complaint: Covid-19, falls, closed head injury, hypoxia Primary Care Provider: Cr Cantu MD Idalmis is an 81 year old female with a PMH significant for DM II, hypothyroidism, swallowing dysfunction, vertigo, spinal stenosis of the lumbar spine, ambulatory dysfunction who presented to the [facility] ED on 07/12/22 from [facility] for fall, closed head injury, and hypoxia. Ini the ED the patient was found to be afebrile, hemodynamically stable, but hypoxic at 88% on RA. Labs were remarkable for WBC WNL, stable Hgb, MCHC at 31.9, stable renal function and electrolytes, chloride of 108, ASt of 62, ALT of 58, alk phos of 110, procal < 0.05, TSH of 1.834, and Covid positive. CT of the head and cervical spine were negative for acute findings. Chest xray was also negative for acute findings. Prior to admission the patient was given 1L NSS and 6mg IV dexamethasone. At the time of the exam the patient was resting comfortably in bed in no acute distress with her daughter/POA sitting bedside. History was mainly obtained from the patient's daughter due to some confusion from the patient. Her daughter states that they first noticed some more confusion on 07/08/22. Her first fall was noted to be on 07/10/22, her daughter notes that the patient fell out of bed and hit her head. Her daughter also explains that she was diagnosed with a UTI this past week, which is why she was started on the Nitrofurantoin. She was found to be covid positive yesterday and her PCP ordered Molnupiravir which was started yesterday. Her daughter states that [facility] called her today because the patient had another fall in her bathroom which was described as a slip because of her socks. They did not believe that she hit her head. She was also found to be hypoxic in the 70's-80's on RA. I spoke to the patient and daughter regarding inpatient treatment of hypoxia due to coivd including dexamethasone and Remdesivir, they would like the patient to receive both. When asked, the patient states that she is still sore on the back of her head from her previous fall but has no other pain at the time of my exam. She does seem somewhat confused during my exam and her daughter confirms this is what they have noticed since the beginning of the week. I spoke to them regarding code status. The patient has a living will and POA (Her Daughter); she is a DNR/DNI. When asked, the patient denies chest pain at rest but does have some chest discomfort when she coughs. She has noted some yellow sputum with her cough. Please refer to Dr. Garza's attestation for any changes to the treatment plan. Allergies Allergy/AdvReac Type Severity Reaction Status Date / Time pregabalin [From Lyrica] Allergy Unknown ON Verified 07/12/22 17:[address] [facility] MED LIST tramadol Allergy Unknown ON [facility] [place] Verified 07/12/22 17:[address] [facility] MED LIST Home Medications Medication Instructions Recorded Confirmed Type blood sugar diagnostic (FreeStyle #10 ea 03/25/19 05/24/22 History Lite Strips) lancets 28 gauge (FreeStyle #25 ea 03/25/19 05/24/22 History Lancets) aspirin 81 mg tablet,delayed 81 mg PO DAILY 05/20/19 07/12/22 History release cholecalciferol (vitamin D3) 50 2,000 units PO DAILY 07/14/19 07/12/22 History mcg (2,000 unit) tablet vitamins A,C,R-osmb-ivqtbf 14,320 1 cap PO BID #90 caps 10/07/20 07/12/22 Rx unit-226 mg-200 unit capsule (PreserVision AREDS) cyanocobalamin (vitamin B-12) 2,500 mcg sublingual DAILY #30 tabs 03/30/21 07/12/22 Rx 2,500 mcg sublingual tablet hydrochlorothiazide 12.5 mg tablet 12.5 mg PO DAILY PRN edema #90 tabs 05/08/21 07/12/22 Rx ibuprofen 600 mg tablet 600 mg PO Q6H PRN pain #120 tabs 06/20/21 07/12/22 Rx acetaminophen 500 mg tablet 1,000 mg PO Q4H PRN fever or pain 11/14/21 07/12/22 Rx #120 tabs fluvoxamine 100 mg tablet 100 mg PO TID 90 days #270 tabs 12/18/21 07/12/22 Rx atorvastatin 10 mg tablet 10 mg PO DAILY #90 tabs 12/21/21 07/12/22 Rx metformin 500 mg tablet,extended 500 mg PO BID #180 tabs 01/12/22 07/12/22 Rx release 24hr mirabegron 50 mg tablet,extended 50 mg PO DAILY #30 tabs 01/18/22 07/12/22 Rx release 24 hr (Myrbetriq) propranolol 80 mg capsule,24 80 mg PO DAILY #30 caps 02/20/22 07/12/22 Rx hr,extended release famotidine 20 mg tablet 20 mg PO BID #180 tabs 03/21/22 07/12/22 Rx meclizine 12.5 mg tablet 12.5 mg PO QAM #90 tabs 04/10/22 07/12/22 Rx meclizine 25 mg tablet 25 mg PO QPM #90 tabs 04/27/22 07/12/22 Rx zolpidem 12.5 mg tablet,extended 12.5 mg PO HS #30 tabs 05/08/22 07/12/22 Rx release,multiphase levocetirizine 5 mg tablet (Xyzal) 5 mg PO DAILY #90 tabs 05/09/22 07/12/22 Rx levothyroxine 100 mcg tablet 100 mcg PO DAILY #90 tabs 06/06/22 07/12/22 Rx psyllium seed (sugar) oral powder 1 tbsp PO DAILY #1,254 grams 07/09/22 07/12/22 Rx (Metamucil (sugar) oral powder) molnupiravir 200 mg capsule (EUA) 800 mg PO Q12H 5 days #40 caps 07/10/22 07/12/22 Rx artificial tears(hypromellose) 0.4 1 drp OPB QID 07/12/22 07/12/22 History % eye drops cyclosporine 0.05 % eye drops in a 1 drp OPB BID 07/12/22 07/12/22 History dropperette (Restasis) dextromethorphan-guaifenesin 20 20 ml PO Q6H PRN Cough 07/12/22 07/12/22 History mg-200 mg/5 mL oral liquid docusate sodium 250 mg capsule 250 mg PO Q24H PRN Constipation 07/12/22 07/12/22 History fluoride (sodium) 1.1 % dental gel 1 applic dental BID 07/12/22 07/12/22 History (PreviDent) glimepiride 1 mg tablet 1 mg PO QAM 07/12/22 07/12/22 History metronidazole 0.75 % topical cream 1 applic topical BID 07/12/22 07/12/22 History multivitamin (Daily-Huy tablet) 1 tab PO DAILY 07/12/22 07/12/22 History nitrofurantoin macrocrystal 100 mg 100 mg PO DAILY 07/12/22 07/12/22 History capsule omega-3 fatty acids 300 mg capsule 600 mg PO DAILY 07/12/22 07/12/22 History sodium chloride 0.65 % nasal spray 2 spray intranasal Q1H PRN NASAL 07/12/22 07/12/22 History aerosol (Saline Nasal) DRYNESS Past Med/Surg History Medical History Arthritis Diabetes Hernia Hypothyroidism Insomnia Posterior tibial tendon dysfunction Vertigo Wound infection after surgery (09/19/13) Surgical History S/P cholecystectomy S/P hernia repair S/P hysterectomy with oophorectomy Status post breast reduction Status post lumbar laminectomy Family History Father Anxiety Bipolar disorder Stroke Grandfather (Maternal) Coronary heart disease Epilepsy Mother Coronary heart disease Hypertension Brother Coronary heart disease Hyperlipidemia Hypertension Parkinson disease Family/Other Myocardial infarction Daughter Melanoma Systemic lupus erythematosus Denies family history of Ovarian cancer Prostate cancer Breast cancer Colorectal cancer Social History Smoking Status: Never smoker Second Hand Exposure: No; Hx Alcohol Use: No Hx Substance Use: No Preferred Language: Bulgarian Communication Ability: Effective Visual Impairment: Limited Hearing Ability: Normal Customer Engineering Specialist Required: No Beliefs That Will Affect Care: None marital status: / Current Living Situation: Personal Care Facility Current Living Situation Comment: [place] current occupational status: retired current occupation: retired elementary classroom teacher Other Information That Helps Us Care for You: No Feels Safe at Home: Yes Safety Concerns: Feels Safe At This Time Childhood Exposure to Second-Hand Smoke: No caffeine: Yes Dental Care, Regularly: Yes Physical Activity Frequency: Other Physical Activity Frequency Comment: limited by physical condition Seatbelt Use: always Sunscreen Use: Yes Assistive Devices: Walker and Wheelchair Review of Systems Review of Systems: Denies current fever, chills, headache, changes in vision, hearing, taste, and smell, abdominal pain, nausea, vomiting, diarrhea, hematemesis, melena, dysuria, hematuria All systems have been reviewed and are otherwise negative. Physical Exam Physical Exam: Physical Exam: General: In no acute distress, stated age, chronically ill-appearing HEENT: Normocephalic, atraumatic, currently with nasal cannula in place, no scleral icterus, pupils around round, symmetrical, and reactive to light, moist mucus membranes, trachea midline, no thyromegaly Chest/Pulm: No respiratory distress, symmetrical chest expansion, scattered rhonchi and expiratory wheezing noted throughout Cardiac: RRR, no murmurs noted Abdomen: Negative for ascites and bruising, chronic large ventral hernia without signs of torsion or pain, normoactive bowel sounds, soft, non-tender to palpation throughout Musculoskeletal: Patient with large bruise in various states of healing on the posterior aspect of her scalp wihtout signs of bleeding, patient is non- tender to palpation over the rest of her scale and her cervical spine. Upper and lower extremities with full ROM, no atrophy, spasticity, or flaccidity Extremities: Radial, dorsalis pedis, and posterior tibial pulses are intact and symmetrical, no edema noted in the BL LE's Skin: Warm, dry, no rashes , lesions, or scars noted Neuro: Alert and oriented to person, and month, year, patient will get confused at times and repeat herself, no focal defects, CN II-XII tested and intact, finger to nose test negative, no tremors noted Psych: No acute distress, calm and cooperative during the exam Results & Data Results & Data ([facility]) Vital Signs (Past 12 Hours) Vital Signs Temp Pulse Resp BP Pulse Ox O2 Del Method O2 Flow Rate 07/12/22 18:00 76 24 97 Nasal Cannula 2 07/12/22 17:30 75 23 95 Nasal Cannula 2 07/12/22 17:30 158/77 H 07/12/22 17:00 75 24 95 Nasal Cannula 2 07/12/22 16:36 79 25 H 88 L Room Air 07/12/22 17:22 95 Nasal Cannula 2 07/12/22 16:25 37.2 C 81 21 150/78 H 90 Room Air Laboratory Results Abnormal lab results 07/12/22 07/12/22 07/12/22 Range/Units 17:06 17:06 17:17 MCHC 31.9 L (32.0-36.0) g/dL RDW Std Deviation 51.0 H (36.4-46.3) fL RDW Coeff of Blair 14.9 H (11.5-14.5) % Immature Gran # (Auto) 0.04 H (0.00-0.02) K/uL Chloride 108 H (98-107) mmol/L BUN 26 H (6-23) mg/dl BUN/Creatinine Ratio 24.3 H (10-20) Glucose 149 H (70-99(Fasting)) mg/dl AST 62 H (13-39) U/L ALT 58 H (7-52) U/L Alkaline Phosphatase 110 H (34-104) U/L Urine Appearance (Clear) Urine Protein (Negative) Urine Ketones (Negative) Urine Nitrite (Negative) Urine WBC (Auto) (0-5) /hpf U Epithel Cells (Auto) (0-5) /lpf Urine Bacteria (Auto) (Negative) SARS-CoV-2, RNA, NAAT POSITIVE A* (NEGATIVE) 07/12/22 Range/Units 19:39 MCHC (32.0-36.0) g/dL RDW Std Deviation (36.4-46.3) fL RDW Coeff of Blair (11.5-14.5) % Immature Gran # (Auto) (0.00-0.02) K/uL Chloride (98-107) mmol/L BUN (6-23) mg/dl BUN/Creatinine Ratio (10-20) Glucose (70-99(Fasting)) mg/dl AST (13-39) U/L ALT (7-52) U/L Alkaline Phosphatase (34-104) U/L Urine Appearance Cloudy A (Clear) Urine Protein Trace H (Negative) Urine Ketones Trace H (Negative) Urine Nitrite Positive A (Negative) Urine WBC (Auto) 5-10 H (0-5) /hpf U Epithel Cells (Auto) 10-20 H (0-5) /lpf Urine Bacteria (Auto) 3+ H (Negative) SARS-CoV-2, RNA, NAAT (NEGATIVE) Diagnostic Findings Cervical Spine CT 07/12/22 16:51 CT SCAN OF THE CERVICAL SPINE CLINICAL HISTORY: Fall. Neck pain. COMPARISON STUDY: CT of the cervical spine dated 04/29/2017. TECHNIQUE: CT scan of the cervical spine is performed from the skull base to the upper thoracic spine. Images are reviewed in the axial, sagittal, and coronal planes. IV contrast was not administered for this examination. A dose lowering technique was utilized adhering to the principles of ALARA. CT DOSE: 1046.94 mGy.cm FINDINGS: Skeletal structures: The skeletal structures are osteopenic. There is no evidence of fracture or subluxation involving the cervical spine. Vertebral body height is maintained. There is minimal anterolisthesis at C7-T1. Alignment is otherwise preserved. There is straightening of the cervical lordosis with mild reversal centered at C4-C5. Anterior osteophytes are seen throughout. The odontoid process and lateral masses are intact. The atlantoaxial articulation is preserved noting productive degenerative change. The spinous processes appear intact. There is moderate to advanced multilevel cervical spondylosis. Uncovertebral and facet arthropathy contribute to neural foraminal narrowing at most levels. Intervertebral discs: Moderate to severe disc space narrowing is seen at all cervical levels between C3-C4 and C6-C7. Central canal: Posterior disc osteophyte complexes are seen all levels between C3-C4 and C6-C7. This likely contributes to multilevel acquired compromise of the central canal. Soft tissues: The prevertebral and paraspinous soft tissues are within normal limits. The thyroid gland is atrophic. Atherosclerotic calcification is noted in the carotid bulbs. Calvarium: The visualized calvarium at the skull base appears intact. Brain parenchyma: Partially visualized brain parenchyma at the skull base is within normal limits. Sinuses and mastoids: The visualized paranasal sinuses are clear. The mastoid air cells are well pneumatized. Lung apices: The partially imaged right apex is grossly clear. IMPRESSION: 1. There is no evidence of fracture or subluxation involving the cervical spine. 2. Osteopenia and spondylotic change as above. ACT 112: Negative or not required by law. Electronically signed by: Lyndon Ho M.D. 07/12/2022 7:03 PM Chest X-Ray 07/12/22 16:51 SINGLE VIEW CHEST CLINICAL HISTORY: General weakness. Fall. FINDINGS: An AP, portable, upright chest radiograph is compared to study dated 05/13/2017. The examination is degraded by portable technique and apical lordotic positioning. The cardiomediastinal silhouette is top normal for projection. Chronic interstitial thickening similar to previous. There is bibasilar scarring/atelectasis. No airspace consolidation or large pleural effusion is identified. No pneumothorax is seen. The skeletal structures are osteopenic. There are chronic/healed right-sided rib fractures. IMPRESSION: No acute cardiopulmonary abnormality. ACT 112: Negative or not required by law. Electronically signed by: Lyndon Ho M.D. 07/12/2022 6:[address] 07/12/22 16:51 CT SCAN OF THE BRAIN WITHOUT IV CONTRAST CLINICAL HISTORY: Fall. COMPARISON STUDY: CT of the brain dated 04/29/2017. TECHNIQUE: Unenhanced axial CT scan of the brain is performed from the vertex to the skull base. A dose lowering technique was utilized adhering to the principles of ALARA. FINDINGS: Brain parenchyma: There is age-related involutional change noting moderate subcortical and periventricular microangiopathic disease. There is no hemorrhage, mass effect, or evidence of acute territorial ischemia by CT criteria. Villagomez-white matter differentiation is preserved. No extra-axial fluid collection is seen. Ventricles, sulci, cisterns: Prominent secondary to involutional change. Intracranial vasculature: There is atherosclerotic calcification of the cavernous carotid and vertebral arteries. Calvarium: The skeletal structures are osteopenic. No depressed calvarial fracture is identified. Soft tissues: There is minimal right posterior scalp contusion. Sinuses and mastoids: There is mild mucosal thickening within the maxillary antr a and ethmoid sinuses. The mastoid air cells are well pneumatized. Orbits: The bony orbits are grossly intact. There are bilateral ocular lens implants. IMPRESSION: There is no hemorrhage, mass effect, or evidence of acute territorial ischemia by CT criteria. ACT 112: Negative or not required by law. Electronically signed by: Lyndon Ho M.D. 07/12/2022 6:51 PM ECG Additional Comments: Normal sinus rhythm Left axis deviation Possible Anterior infarct , age undetermined ST & T wave abnormality, consider lateral ischemia Abnormal ECG When compared with ECG of 13-MAY-2017 18:03, T wave inversion now evident in Anterolateral leads Code Status & VTE Plan Code Status DNR/DNI VTE Prophylaxis Plan VTE Prophylaxis will be ordered: Yes Supervising Physician Co-Signing Physician Notes Attending addendum: I have physically seen this patient, have supervised the BROOKS's activities, and agree with the H&P unless as otherwise noted. Assessment and Plan: COVID-19 infection with hypoxia- Initial test positive at [facility] yesterday Received malnupiravir by her PCP yesterday Status post dexamethasone 6 mg IV in the ED Dexamethasone 6 mg IV daily Remdesivir IV per protocol Guaifenesin extended release 12 mg p.o. twice daily Incentive spirometry, flutter therapy and albuterol HFA 2 puffs every 4 hours as needed Titrate oxygen to keep pulse ox 95% Status post fall x2 over the past week- CT head negative We will consult PT/OT prior to discharge Likely secondary to weakness from generalized illness and general debilitation Remaining orders and notations as noted PG Care Time/CCT Total # of Minutes Spent Total Time Spent with Patient: Total time spent is greater than 50% in coordination of care (as documented) at patient's floor/unit and/or counseling patient: Coding [place] [address] Initial Inpt Care Lvl 2 Patient Type Established Medical Decision Making Moderate Complexity Diagnoses COVID-19 U07.1 Hypoxia R09.02 Fall W19.XXXA Elevated LFTs R79.89 Diabetes E11.9 Mixed incontinence urge and stress N39.46 Swallowing dysfunction R13.10 Vertigo R42 Hypothyroidism E03.9 Insomnia G47.00
[2022-07-12 20:11] LABS: Appearance Urine Cloudy (Clear); Bacteria Urine Automated 3+ (Negative); Bilirubin Urine Negative (Negative); Blood Urine Negative (Negative); Cast Urine Automated 0 /lpf (0-5); Color Urine Dark Yellow; Glucose Urine UA Negative (Negative); Ketones Urine Trace (Negative); Leukocyte Esterase Urine Negative (Negative); Nitrite Urine Positive (Negative); Protein Urine Trace (Negative); RBC Urine Automated 0-4 /hpf (0-4); Specific Gravity Urine 1.027 (1.000-1.030); Urobilinogen Urine Negative (Negative)
[2022-07-12] MEDS ORDERED: REMDESIVIR 200 MG in SODIUM CHLORIDE 0.9% 210 ML IV STA (20:20)
[2022-07-12] MEDS ORDERED: GLUCAGON FOR INJ 1 MG VIAL SQ PRN ×2 (20:22→22:56)
[2022-07-12] MEDS ORDERED: DEXTROSE 50% 50 ML SYRINGE IV PRN ×2 (20:22→22:56)
[2022-07-12] MEDS ORDERED: GLUCOSE 10 TAB/TUBE PO PRN ×2 (20:22→22:56)
[2022-07-12] MEDS ORDERED: CARBOHYDRATES FOR HYPOGLYCEMIA PO PRN ×2 (20:22→22:56)
[2022-07-12] MEDS ORDERED: GLUCOSE 40% GEL 15 GM TUBE PO PRN ×2 (20:22→22:56)
[2022-07-12] MEDS ORDERED: guaiFENesin SUGAR FREE 100 MG/5 ML UDC PO PRN (20:32)
[2022-07-12] MEDS ORDERED: cefTRIAXone SODIUM 2,000 MG/70 ML BAG IV STA (20:42)
[2022-07-12] MEDS ORDERED: MELATONIN 3 MG TAB PO PRN (20:48)
[2022-07-12] MEDS ORDERED: INSULIN ASPART PER UNIT SC SCH (21:00)
[2022-07-12] MEDS ORDERED: LANTUS PER UNIT CHARGE SQ SCH (21:00)
[2022-07-12] MEDS ORDERED: DOCUSATE SODIUM 100 MG CAP PO PRN (22:56)
[2022-07-12] MEDS ORDERED: ALBUTEROL 0.083% NEBU SOLN 3 ML VIAL ONE (23:15)
[2022-07-13] MEDS: INSULIN ASPART PER UNIT SC SCH ×5 (00:07→20:12)
[2022-07-13] MEDS: LANTUS PER UNIT CHARGE SQ SCH ×3 (00:08→20:34)
[2022-07-13] MEDS: MECLIZINE HCL 25 MG TAB PO SCH ×2 (00:13→20:46)
[2022-07-13] MEDS: fluvoxaMINE MALEATE 50 MG TAB PO SCH ×4 (00:13→20:49)
[2022-07-13] MEDS: guaiFENesin 600 MG TABCR PO SCH ×3 (00:14→20:48)
[2022-07-13] MEDS: FAMOTIDINE 20 MG TAB PO SCH ×3 (00:14→20:49)
[2022-07-13] MEDS ORDERED: ALBUTEROL 0.083% NEBU SOLN 3 ML VIAL NEB PRN (00:39)
[2022-07-13] MEDS ORDERED: ALBUTEROL 0.5% NEB SOLN 2.5 MG/0.5 ML VIAL NEB SCH ×2 (01:00→09:00)
[2022-07-13] MEDS: ENOXAPARIN INJ 40 MG/0.4 ML SYR SQ SCH ×3 (01:18→20:42)
[2022-07-13] MEDS: ARTIFICIAL TEARS OP SCH ×5 (02:01→20:42)
[2022-07-13] MEDS: LEVOTHYROXINE SODIUM 100 MCG TABLET PO SCH (05:22)
[2022-07-13 07:57] LABS: Hematocrit (blood only) 40.6 % (34.1-44.9); Hemoglobin 13.3 g/dl (12.0-16.0); Mean Corpuscular Hemoglobin 29.6 pg (25.0-34.0); Mean Corpuscular Hgb Conc 32.8 g/dL (32.0-36.0); Mean Corpuscular Volume 90.4 fL (80.0-100.0); Mean Platelet Volume 10.6 fL (9.4-12.3); Platelet Count 231 K/uL (130-400); RDW Coefficient of Variation 14.6 % (11.5-14.5); RDW Standard Deviation 48.6 fL (36.4-46.3); Red Blood Count 4.49 M/uL (3.93-5.22); White Blood Count 5.87 K/ul (4.8-10.8)
[2022-07-13] MEDS: CEROVITE ADV FORMULA TAB PO SCH (08:22)
[2022-07-13] MEDS: ATORVASTATIN 10 MG TAB PO SCH (08:22)
[2022-07-13] MEDS: PROPRANOLOL HCL LA 80 MG CAPCR PO SCH (08:22)
[2022-07-13] MEDS: CYANOCOBALAMIN (B-12) 2,500 MCG TABLET SL SCH (08:22)
[2022-07-13] MEDS: MECLIZINE 12.5 MG TAB PO SCH (08:22)
[2022-07-13] MEDS: dexAMETHasone 6 MG in SYRINGE 0 ML IV SCH (08:22)
[2022-07-13] MEDS: ASPIRIN 81 MG ECTAB PO SCH (08:22)
[2022-07-13] MEDS: MULTIVITAMIN TAB PO SCH (08:23)
[2022-07-13] MEDS: MIRABEGRON ER 25 MG TAB PO SCH (08:23)
[2022-07-13] MEDS: ACETAMINOPHEN 500 MG TAB PO PRN (08:38)
[2022-07-13 08:39] LABS: Albumin Globulin Ratio 1.5 (0.9-2); Albumin Level 3.5 gm/dl (3.4-5.0); BUN Creatinine Ratio 28.1 (10-20); Bilirubin,Total 0.3 mg/dl (0.2-1.0); Calcium 8.2 mg/dl (8.5-10.1); Creatinine Clr Calc Pharmacy 80.2 ml/min; Est GFR (African American) 100.8 ml/min; Est GFR (Non-African American) 86.9 ml/min; Globulin 2.4 gm/dl (2.5-4.0); Potassium 3.8 mmol/L (3.5-5.1); Total Protein 5.9 gm/dl (6.0-8.3)
[2022-07-13] MEDS ORDERED: NITROFURANTOIN MONOHYDRATE 100 MG CAP PO SCH (09:00)
--- NOTE | 2022-07-13 10:10 | Electrocardiogram Report ---
Test Reason : Blood Pressure : / mmHG Vent. Rate : 074 BPM Atrial Rate : 074 BPM P-R Int : 174 ms QRS Dur : 086 ms QT Int : 346 ms P-R-T Axes : 001 -43 143 degrees QTc Int : 384 ms Normal sinus rhythm Left ventricular hypertrophy with repolarization abnormality Poor R wave progression, consider anterior UT vs. lead placement vs. LVH Abnormal ECG When compared with ECG of 13-MAY-2017 18:03, T wave inversion now evident in Anterolateral leads Confirmed by Severo Hernandez ([id number]) on 07/13/2022 10:09:38 AM Referred By: REFERRED SELF Confirmed By:Severo Hernandez
--- NOTE | 2022-07-13 12:37 | Hospitalist Progress Note ---
Date of Service July 13, 2022 Assessment & Plan (1) COVID-19: Plan: -A fully vaccinated female, who presents with SOB -Found to have COVID 19 at her [facility] -Was started on Molnupiravir by her PCP -Patient does note yellow sputum production but no infiltrates on CXR and procal was negative, will hold antibiotics for now -Initially on 2L of oxygen through nasal canula, but now saturating well on room air -Was given one dose of 6 mg IV dexamethasone in the ED prior to admission, will continue with Dexamethasone and remdesivir for now -Continue incentive spirometry, flutter therapy, and prn albuterol -Patient expressed a willingness for early discharge -May discharge her tomorrow on Molnuprivir to complete a 5 day course (2) Hypoxia: Plan: -Now resolved -Patient now on room air (3) Fall: Plan: -Patient sustained two falls over the past week, first was out of beat when she hit her head, the second was today without hitting head -Of note, she was found to have confusion more than baseline prior to her first fall on 07/10 -Trauma workup here today including CT of the head were negative for acture trauma -Fall precautions ordered (4) Elevated LFTs: Plan: -AST noted to be 62 today (was 48 on 05/25/22), ALT at 58 (was 53 on 05/25), and alk phos at 110 (was 126 on 05/25). -No abdominal pain or other symptoms to suggest acute hepatobiliary issue -Increase today likely due to acute covid infection -Continue to monitor daily am CMP (5) Diabetes: Plan: -Hold metformin and glimepiride -Will start with Lantus at 5 units BID -Correction factor of 50 and carb ratio of 16 -Goal for now will be 110-160 -Patient will likely need an increase in her regimen due to dexamethasone, increase as needed -Consistent carb diet (6) Mixed incontinence urge and stress: Plan: -Continue Mirabegron (7) Swallowing dysfunction: Plan: -Will order minced and moist diet (8) Vertigo: Plan: -Continue meclizine (9) Hypothyroidism: Plan: -Continue levothyroxine (10) Insomnia: Plan: -Noted to be on Zolpidem outpatient -Will try melatonin for now Plan errol d/c tomorrow Admission and Anticipated Discharge Date Admission Date: July 12, 2022 Subjective patient seen and examined, no new complaints, denies SOB Review of Systems Review of Systems: All systems reviewed are negative, apart from the ones contained in the history. Physical Exam Physical Exam: The patient is awake, alert and oriented 3, well developed and well nourished, normocephalic and atraumatic, lying in bed and in no acute distress. HEENT--PERRL, EOMI, mucous membranes and oropharynx mildly dry Neck--supple. No JVD. No bruits. Thyroid normal, trachea midline, no adenopathy. Heart--normal S1 and S2. No murmurs, rubs or gallops. Lungs--clear bilaterally, no respiratory distress, no accessory muscle use. Abdomen--normal bowel sounds and soft. Mild epigastric and left sided abdominal pain Extremities--no cyanosis or clubbing. No edema. Dermatologic--normal skin turgor, normal color, no abnormal lymph nodes, no rash. Neurologic--cranial nerves II through XII grossly intact. Rheumatologic--normal range of motion. Psychiatric--normal affect. Results & Data Results & Data ([facility]) Vital Signs (Past 12 Hours) Vital Signs Temp Pulse Resp BP Pulse Ox O2 Del Method O2 Flow Rate 07/13/22 11:38 97.9 F 72 19 149/67 H 92 Room Air 07/13/22 08:00 Room Air 07/13/22 07:39 97.9 F 73 19 145/75 H 93 Room Air 07/13/22 04:09 97.7 F 89 16 154/76 H 94 Nasal Cannula 2 PG Care Time/CCT Total # of Minutes Spent Total Time Spent with Patient: Total time spent is greater than 50% in coordination of care (as documented) at patient's floor/unit and/or counseling patient: Coding Level of Care Code 93343 Subseq Hosp Care Lvl 2 Diagnoses COVID-19 U07.1 Hypoxia R09.02 Fall W19.XXXA Elevated LFTs R79.89 Diabetes E11.9 Mixed incontinence urge and stress N39.46 Swallowing dysfunction R13.10 Vertigo R42 Hypothyroidism E03.9 Insomnia G47.00 Time Spent (min) 35
[2022-07-13] MEDS: REMDESIVIR 100 MG in SODIUM CHLORIDE 0.9% 230 ML IV SCH (20:41)
[2022-07-14] MEDS: LEVOTHYROXINE SODIUM 100 MCG TABLET PO SCH (06:22)
[2022-07-14 07:33] LABS: Hematocrit (blood only) 42.4 % (34.1-44.9); Hemoglobin 13.8 g/dl (12.0-16.0); Mean Corpuscular Hemoglobin 29.4 pg (25.0-34.0); Mean Corpuscular Hgb Conc 32.5 g/dL (32.0-36.0); Mean Corpuscular Volume 90.4 fL (80.0-100.0); Mean Platelet Volume 10.5 fL (9.4-12.3); Platelet Count 262 K/uL (130-400); RDW Coefficient of Variation 14.6 % (11.5-14.5); RDW Standard Deviation 48.3 fL (36.4-46.3); Red Blood Count 4.69 M/uL (3.93-5.22); White Blood Count 9.61 K/ul (4.8-10.8)
[2022-07-14 07:59] LABS: Albumin Globulin Ratio 1.3 (0.9-2); Albumin Level 3.5 gm/dl (3.4-5.0); Bilirubin,Total 0.6 mg/dl (0.2-1.0); Calcium 8.7 mg/dl (8.5-10.1); Creatinine Clr Calc Pharmacy 72.5 ml/min; Est GFR (Non-African American) 83.7 ml/min; Globulin 2.6 gm/dl (2.5-4.0); Potassium 3.4 mmol/L (3.5-5.1); Total Protein 6.1 gm/dl (6.0-8.3)
[2022-07-14] MEDS: guaiFENesin 600 MG TABCR PO SCH ×2 (08:01→21:16)
[2022-07-14] MEDS: CEROVITE ADV FORMULA TAB PO SCH (08:01)
[2022-07-14] MEDS: ATORVASTATIN 10 MG TAB PO SCH (08:01)
[2022-07-14] MEDS: MECLIZINE 12.5 MG TAB PO SCH (08:01)
[2022-07-14] MEDS: MIRABEGRON ER 25 MG TAB PO SCH (08:01)
[2022-07-14] MEDS: MULTIVITAMIN TAB PO SCH (08:01)
[2022-07-14] MEDS: ASPIRIN 81 MG ECTAB PO SCH (08:01)
[2022-07-14] MEDS: ENOXAPARIN INJ 40 MG/0.4 ML SYR SQ SCH ×2 (08:02→21:14)
[2022-07-14] MEDS: PROPRANOLOL HCL LA 80 MG CAPCR PO SCH (08:02)
[2022-07-14] MEDS: fluvoxaMINE MALEATE 50 MG TAB PO SCH ×3 (08:02→21:15)
[2022-07-14] MEDS: CYANOCOBALAMIN (B-12) 2,500 MCG TABLET SL SCH (08:02)
[2022-07-14] MEDS: dexAMETHasone 6 MG in SYRINGE 0 ML IV SCH (08:02)
[2022-07-14] MEDS: FAMOTIDINE 20 MG TAB PO SCH ×2 (08:03→21:15)
[2022-07-14] MEDS: ACETAMINOPHEN 500 MG TAB PO PRN (08:04)
[2022-07-14] MEDS: INSULIN ASPART PER UNIT SC SCH ×4 (08:54→21:00)
[2022-07-14] MEDS: LANTUS PER UNIT CHARGE SQ SCH ×2 (08:55→21:00)
--- NOTE | 2022-07-14 11:26 | Hospitalist Progress Note ---
Date of Service July 14, 2022 Assessment & Plan (1) COVID-19: Plan: -Admit to med/tele -Patient is currently afebrile, hemodynamically stable, and stable on 2L NC -Was diagnosed yesterday at [facility], has received covid vaccine and boosters, was started on molnupiravir by her PCP yesterday -Patient does note yellow sputum production but no infiltrates on CXR and procal was negative, will hold antibiotics for now -Was given one dose of 6 mg IV dexamethasone in the ED prior to admission, will continue with Dexamethasone and remdesivir for now as she qualifies and she and her family would like to start both -Will add incentive spirometry, flutter therapy, and prn albuterol -Monitor on tele and pulse oximetry, titrate O2 to keep SpO2 equal to or greater than 95% -Will hold molnupiravir since she is now inpatient and will be receiving remdesivir -She can resume Molnuprivir upon discharge (2) Hypoxia: Plan: -Resolved, now at baseline (3) Fall: Plan: -Patient sustained two falls over the past week, first was out of beat when she hit her head, the second was today without hitting head -Of note, she was found to have confusion more than baseline prior to her first fall on 07/10 -Trauma workup here today including CT of the head were negative for acture trauma -Fall precautions ordered (4) Elevated LFTs: Plan: -AST noted to be 62 today (was 48 on 05/25/22), ALT at 58 (was 53 on 05/25), and alk phos at 110 (was 126 on 05/25). -No abdominal pain or other symptoms to suggest acute hepatobiliary issue -Increase today likely due to acute covid infection -Continue to monitor daily am CMP (5) Diabetes: Plan: -Hold metformin and glimepiride -Will start with Lantus at 5 units BID -Correction factor of 50 and carb ratio of 16 -Goal for now will be 110-160 -Patient will likely need an increase in her regimen due to dexamethasone, increase as needed -Consistent carb diet (6) Mixed incontinence urge and stress: Plan: -Continue Mirabegron (7) Swallowing dysfunction: Plan: -Will order minced and moist diet (8) Vertigo: Plan: -Continue meclizine (9) Hypothyroidism: Plan: -Continue levothyroxine (10) Insomnia: Plan: -Noted to be on Zolpidem outpatient -Will try melatonin for now Plan I was going to discharge her today, but her facility needs PT eval Admission and Anticipated Discharge Date Admission Date: July 12, 2022 Subjective patient seen and examined, no new complaints, denies SOB Review of Systems Review of Systems: All systems reviewed are negative, apart from the ones contained in the history. Physical Exam Physical Exam: The patient is awake, alert and oriented 3, well developed and well nourished, normocephalic and atraumatic, lying in bed and in no acute distress. HEENT--PERRL, EOMI, mucous membranes and oropharynx mildly dry Neck--supple. No JVD. No bruits. Thyroid normal, trachea midline, no adenopathy. Heart--normal S1 and S2. No murmurs, rubs or gallops. Lungs--clear bilaterally, no respiratory distress, no accessory muscle use. Abdomen--normal bowel sounds and soft. Mild epigastric and left sided abdominal pain Extremities--no cyanosis or clubbing. No edema. Dermatologic--normal skin turgor, normal color, no abnormal lymph nodes, no rash. Neurologic--cranial nerves II through XII grossly intact. Rheumatologic--normal range of motion. Psychiatric--normal affect. Results & Data Results & Data ([facility]) Vital Signs (Past 12 Hours) Vital Signs Temp Pulse Resp BP Pulse Ox O2 Del Method 07/14/22 10:49 97.9 F 63 18 163/83 H 94 Room Air 07/14/22 07:01 97.9 F 68 19 164/92 H 92 Room Air PG Care Time/CCT Total # of Minutes Spent Total Time Spent with Patient: Total time spent is greater than 50% in coordination of care (as documented) at patient's floor/unit and/or counseling patient: Coding Level of Care Code 39183 Subseq Hosp Care Lvl 2 Diagnoses COVID-19 U07.1 Hypoxia R09.02 Fall W19.XXXA Elevated LFTs R79.89 Diabetes E11.9 Mixed incontinence urge and stress N39.46 Swallowing dysfunction R13.10 Vertigo R42 Hypothyroidism E03.9 Insomnia G47.00 Time Spent (min) 35
[2022-07-14] MEDS: ARTIFICIAL TEARS OP SCH ×4 (12:31→20:59)
[2022-07-14] MEDS: REMDESIVIR 100 MG in SODIUM CHLORIDE 0.9% 230 ML IV SCH (20:21)
[2022-07-14] MEDS: MECLIZINE HCL 25 MG TAB PO SCH (21:16)
[2022-07-15 05:36] LABS: Hematocrit (blood only) 42.1 % (34.1-44.9); Mean Corpuscular Hemoglobin 29.8 pg (25.0-34.0); Mean Corpuscular Hgb Conc 33.3 g/dL (32.0-36.0); Mean Corpuscular Volume 89.6 fL (80.0-100.0); Mean Platelet Volume 10.7 fL (9.4-12.3); Platelet Count 240 K/uL (130-400); RDW Coefficient of Variation 14.9 % (11.5-14.5); RDW Standard Deviation 48.9 fL (36.4-46.3); White Blood Count 8.33 K/ul (4.8-10.8)
[2022-07-15 06:01] LABS: Albumin Globulin Ratio 1.4 (0.9-2); Albumin Level 3.3 gm/dl (3.4-5.0); BUN Creatinine Ratio 25.4 (10-20); Bilirubin,Total 0.5 mg/dl (0.2-1.0); Calcium 8.1 mg/dl (8.5-10.1); Creatinine Clr Calc Pharmacy 78.6 ml/min; Est GFR (African American) 99.6 ml/min; Globulin 2.4 gm/dl (2.5-4.0); Potassium 3.3 mmol/L (3.5-5.1); Total Protein 5.7 gm/dl (6.0-8.3)
[2022-07-15] MEDS: LEVOTHYROXINE SODIUM 100 MCG TABLET PO SCH (06:41)
[2022-07-15] MEDS ORDERED: POTASSIUM CHLORIDE CRTAB 20 MEQ TABCR PO STA (07:41)
[2022-07-15] MEDS: ATORVASTATIN 10 MG TAB PO SCH (08:15)
[2022-07-15] MEDS: PROPRANOLOL HCL LA 80 MG CAPCR PO SCH (08:15)
[2022-07-15] MEDS: CYANOCOBALAMIN (B-12) 2,500 MCG TABLET SL SCH (08:15)
[2022-07-15] MEDS: MIRABEGRON ER 25 MG TAB PO SCH (08:16)
[2022-07-15] MEDS: fluvoxaMINE MALEATE 50 MG TAB PO SCH ×2 (08:16→12:37)
[2022-07-15] MEDS: FAMOTIDINE 20 MG TAB PO SCH (08:16)
[2022-07-15] MEDS: MULTIVITAMIN TAB PO SCH (08:16)
[2022-07-15] MEDS: dexAMETHasone 6 MG in SYRINGE 0 ML IV SCH (08:16)
[2022-07-15] MEDS: ENOXAPARIN INJ 40 MG/0.4 ML SYR SQ SCH (08:16)
[2022-07-15] MEDS: ASPIRIN 81 MG ECTAB PO SCH (08:16)
[2022-07-15] MEDS: guaiFENesin 600 MG TABCR PO SCH (08:17)
[2022-07-15] MEDS: ARTIFICIAL TEARS OP SCH ×2 (08:18→12:37)
[2022-07-15] MEDS: INSULIN ASPART PER UNIT SC SCH ×3 (08:58→16:51)
[2022-07-15] MEDS: CEROVITE ADV FORMULA TAB PO SCH (09:00)
[2022-07-15] MEDS: MECLIZINE 12.5 MG TAB PO SCH (09:00)
[2022-07-15] MEDS: LANTUS PER UNIT CHARGE SQ SCH (09:00)
[2022-07-15] MEDS ORDERED: POTASSIUM CHLORIDE 10 MEQ TABCR PO STA (10:28)
[2022-07-15] MEDS ORDERED: Nursing to Pharmacy Communication SCH (10:30)
--- NOTE | 2022-07-15 11:50 | Hospitalist Progress Note ---
Date of Service July 15, 2022 Assessment & Plan (1) COVID-19: Plan: -A fully vaccinated female, who presented with SOB -Found to have COVID 19 at her [facility] -Was started on Molnupiravir by her PCP -Patient does note yellow sputum production but no infiltrates on CXR and procal was negative, will hold antibiotics for now -Initially on 2L of oxygen through nasal canula, but now saturating well on room air -Was given one dose of 6 mg IV dexamethasone in the ED prior to admission, will continue with Dexamethasone and remdesivir for now -Continue incentive spirometry, flutter therapy, and prn albuterol -Patient expressed a willingness for early discharge -Was going to discharge, but [facility] will not accept until tomorrow, Saturday -May discharge her tomorrow on Molnuprivir to complete a 5 day course for what its worth (2) Hypoxia: Plan: -Resolved, now at baseline (3) Fall: Plan: -Patient sustained two falls over the past week, first was out of beat when she hit her head, the second was today without hitting head -Of note, she was found to have confusion more than baseline prior to her first fall on 07/10 -Trauma workup here today including CT of the head were negative for acture trauma -Fall precautions ordered (4) Elevated LFTs: Plan: -stable liver functions (5) Diabetes: Plan: -Hold metformin and glimepiride -Will start with Lantus at 5 units BID -Correction factor of 50 and carb ratio of 16 -Goal for now will be 110-160 -Consistent carb diet (6) Mixed incontinence urge and stress: Plan: -Continue Mirabegron (7) Swallowing dysfunction: Plan: -Will order minced and moist diet (8) Vertigo: Plan: -Continue meclizine (9) Hypothyroidism: Plan: -Continue levothyroxine (10) Insomnia: Plan: -Noted to be on Zolpidem outpatient -Will try melatonin for now Plan d/c to [facility] tomorrow Admission and Anticipated Discharge Date Admission Date: July 12, 2022 Subjective patient seen and examined, no new complaints, denies SOB Review of Systems Review of Systems: All systems reviewed are negative, apart from the ones contained in the history. Physical Exam Physical Exam: The patient is awake, alert and oriented 3, well developed and well nourished, normocephalic and atraumatic, lying in bed and in no acute distress. HEENT--PERRL, EOMI, mucous membranes and oropharynx mildly dry Neck--supple. No JVD. No bruits. Thyroid normal, trachea midline, no adenopathy. Heart--normal S1 and S2. No murmurs, rubs or gallops. Lungs--clear bilaterally, no respiratory distress, no accessory muscle use. Abdomen--normal bowel sounds and soft. Mild epigastric and left sided abdominal pain Extremities--no cyanosis or clubbing. No edema. Dermatologic--normal skin turgor, normal color, no abnormal lymph nodes, no rash. Neurologic--cranial nerves II through XII grossly intact. Rheumatologic--normal range of motion. Psychiatric--normal affect. Results & Data Results & Data ([facility]) Vital Signs (Past 12 Hours) Vital Signs Temp Pulse Pulse Resp BP Pulse Ox O2 Del Method 07/15/22 08:00 58 L 07/15/22 08:00 Room Air 07/15/22 07:14 97.9 F 62 16 154/100 H 91 Room Air PG Care Time/CCT Total # of Minutes Spent Total Time Spent with Patient: Total time spent is greater than 50% in coordination of care (as documented) at patient's floor/unit and/or counseling patient: Coding Level of Care Code 31504 Subseq Hosp Care Lvl 2 Diagnoses COVID-19 U07.1 Hypoxia R09.02 Fall W19.XXXA Elevated LFTs R79.89 Diabetes E11.9 Mixed incontinence urge and stress N39.46 Swallowing dysfunction R13.10 Vertigo R42 Hypothyroidism E03.9 Insomnia G47.00 Time Spent (min) 35
--- NOTE | 2022-07-15 16:23 | Discharge Summary ---
Date of Service July 15, 2022 Admission HPI Per Admitting Provider Idalmis is an 81 year old female with a PMH significant for DM II, hypothyroidism, swallowing dysfunction, vertigo, spinal stenosis of the lumbar spine, ambulatory dysfunction who presented to the [facility] ED on 07/12/22 from [facility] for fall, closed head injury, and hypoxia. Ini the ED the patient was found to be afebrile, hemodynamically stable, but hypoxic at 88% on RA. Labs were remarkable for WBC WNL, stable Hgb, MCHC at 31.9, stable renal function and electrolytes, chloride of 108, ASt of 62, ALT of 58, alk phos of 110, procal < 0.05, TSH of 1.834, and Covid positive. CT of the head and cervical spine were negative for acute findings. Chest xray was also negative for acute findings. Prior to admission the patient was given 1L NSS and 6mg IV dexamethasone. At the time of the exam the patient was resting comfortably in bed in no acute distress with her daughter/POA sitting bedside. History was mainly obtained from the patient's daughter due to some confusion from the patient. Her daughter states that they first noticed some more confusion on 07/08/22. Her first fall was noted to be on 07/10/22, her daughter notes that the patient fell out of bed and hit her head. Her daughter also explains that she was diagnosed with a UTI this past week, which is why she was started on the Nitrofurantoin. She was found to be covid positive yesterday and her PCP ordered Molnupiravir which was started yesterday. Her daughter states that [facility] called her today because the patient had another fall in her bathroom which was described as a slip because of her socks. They did not believe that she hit her head. She was also found to be hypoxic in the 70's-80's on RA. I spoke to the patient and daughter regarding inpatient treatment of hypoxia due to coivd including dexamethasone and Remdesivir, they would like the patient to receive both. When asked, the patient states that she is still sore on the back of her head from her previous fall but has no other pain at the time of my exam. She does seem somewhat confused during my exam and her daughter confirms this is what they have noticed since the beginning of the week. I spoke to them regarding code status. The patient has a living will and POA (Her Daughter); she is a DNR/DNI. When asked, the patient denies chest pain at rest but does have some chest discomfort when she coughs. She has noted some yellow sputum with her cough. Please refer to Dr. Garza's attestation for any changes to the treatment plan. Principal Diagnosis covid 19 infection Discharge Exam The patient is awake, alert and oriented 3, well developed and well nourished, normocephalic and atraumatic, lying in bed and in no acute distress. HEENT--PERRL, EOMI, mucous membranes and oropharynx mildly dry Neck--supple. No JVD. No bruits. Thyroid normal, trachea midline, no adenopathy. Heart--normal S1 and S2. No murmurs, rubs or gallops. Lungs--clear bilaterally, no respiratory distress, no accessory muscle use. Abdomen--normal bowel sounds and soft. Mild epigastric and left sided abdominal pain Extremities--no cyanosis or clubbing. No edema. Dermatologic--normal skin turgor, normal color, no abnormal lymph nodes, no rash. Neurologic--cranial nerves II through XII grossly intact. Rheumatologic--normal range of motion. Psychiatric--normal affect. Discharge Data Allergies Allergy/AdvReac Type Severity Reaction Status Date / Time pregabalin [From Lyrica] Allergy Unknown ON [facility] Verified 07/12/22 17:30 [facility] MED LIST tramadol Allergy Unknown ON [facility] Verified 07/12/22 17:30 [facility] LIST Consultations 07/12/22 20:08 ED Decision to Admit Stat Ordered Studies 07/12/22 16:51 CT cervical spine wo con Stat CT head/brain wo con Stat Hospital Course (1) COVID-19: -A fully vaccinated female, who presented with SOB -Found to have COVID 19 at her [facility] -Was started on Molnupiravir by her PCP -Patient does note yellow sputum production but no infiltrates on CXR and procal was negative, will hold antibiotics for now -Initially on 2L of oxygen through nasal canula, but now saturating well on room air -Was given one dose of 6 mg IV dexamethasone in the ED prior to admission, will continue with Dexamethasone and remdesivir for now -Continue incentive spirometry, flutter therapy, and prn albuterol -Patient expressed a willingness for early discharge -Was going to discharge, but [facility] will not accept -Will discharge her today on Molnuprivir to complete a 5 day course for what its worth (2) Hypoxia: -Resolved, now at baseline (3) Fall: -Patient sustained two falls over the past week, first was out of beat when she hit her head, the second was today without hitting head -Of note, she was found to have confusion more than baseline prior to her first fall on 07/10 -Trauma workup here today including CT of the head were negative for acture trauma -Fall precautions ordered (4) Elevated LFTs: -stable liver functions (5) Diabetes: -Hold metformin and glimepiride -Will start with Lantus at 5 units BID -Correction factor of 50 and carb ratio of 16 -Goal for now will be 110-160 -Consistent carb diet (6) Mixed incontinence urge and stress: -Continue Mirabegron (7) Swallowing dysfunction: -Will order minced and moist diet (8) Vertigo: -Continue meclizine (9) Hypothyroidism: -Continue levothyroxine (10) Insomnia: -Noted to be on Zolpidem outpatient -Will try melatonin for now Plan d/c to [facility] tomorrow Total Time Total Time Spent Total Time Spent (In Minutes): 35 Discharge Plan Discharge Items Patient Disposition: Personal Residential Reason For Visit: FALL Discharge Diagnosis: COVID 19 Infection Activity: Resume your previous activity Non-emergency contact: Primary Care Provider Call non-emergency contact if: you have any medication questions Follow-up/Referrals: ProCr MD [Primary Care Provider] - Diet: Regular Addtl Attending Provider Instructions: please make appointment to follow up with your regular PCP Pending Studies at Discharge: No Stand-Alone Forms: My [employer], Smoking Cessation Skilled Items Patient informed of condition?: Yes DNR: Yes Discharge Level of Care: Skilled Communicable Disease: No Discharge Prognosis: Stable Lines: None Urinary Catheter: No Medications and DC Order Prescriptions: Continued PreserVision AREDS [id number] capsule 1 cap PO BID Qty: 90 3RF cyanocobalamin (vitamin B-12) 2,500 mcg tablet, sublingual 2,500 mcg SL DAILY Qty: 30 0RF hydrochlorothiazide 12.5 mg tablet 12.5 mg PO DAILY PRN (Reason: edema) Qty: 90 1RF ibuprofen 600 mg tablet 600 mg PO Q6H PRN (Reason: pain) Qty: 120 2RF acetaminophen 500 mg tablet 1,000 mg PO Q4H MDD 4 GRAMS/24 HOURS. PRN (Reason: fever or pain) Qty: 120 3RF Rx Instructions: maximum of 4000mg/day fluvoxamine 100 mg tablet 100 mg PO TID 90 Days Qty: 270 3RF atorvastatin 10 mg tablet 10 mg PO DAILY Qty: 90 3RF metformin 500 mg tablet extended release 24hr 500 mg PO BID Qty: 180 3RF propranolol 80 mg capsule,extended release 24 hr 80 mg PO DAILY Qty: 30 6RF famotidine 20 mg tablet 20 mg PO BID Qty: 180 3RF meclizine 12.5 mg tablet 12.5 mg PO QAM Qty: 90 3RF meclizine 25 mg tablet 25 mg PO QPM Qty: 90 3RF zolpidem 12.5 mg tablet,ext release multiphase 12.5 mg PO HS Qty: 30 1RF levocetirizine [Xyzal] 5 mg tablet 5 mg PO DAILY Qty: 90 3RF levothyroxine 100 mcg tablet 100 mcg PO DAILY Qty: 90 3RF Metamucil (sugar) Powder 1 tbsp PO DAILY Qty: 1254 0RF Rx Instructions: 1 tablespoon daily Myrbetriq 50 mg tablet extended release 24 hr 50 mg PO DAILY Qty: 30 2RF molnupiravir 200 mg capsule 800 mg PO Q12H 5 Days Qty: 40 0RF Rx Instructions: STARTED 07/11/22 FOR 5 DAYS. (DME) lancets [FreeStyle Lancets] 28 gauge misc See Dose Instructions .ROUTE .MEDSUPPLY Qty: 25 Rx Instructions: As directed (DME) FreeStyle Lite Strips strip See Dose Instructions .ROUTE .MEDSUPPLY Qty: 10 Rx Instructions: As directed aspirin 81 mg tablet,delayed release (DR/EC) 81 mg PO DAILY cholecalciferol (vitamin D3) 2,000 unit tablet 2,000 units PO DAILY multivitamin [Daily-Huy] Tablet 1 tab PO DAILY dextromethorphan-guaifenesin 20-200 mg/5 mL Liquid 20 ml PO Q6H PRN (Reason: Cough) artificial tears(hypromellose) 0.4 % Drops 1 drp OPB QID Rx Instructions: SELF ADMINISTERED docusate sodium 250 mg Capsule 250 mg PO Q24H PRN (Reason: Constipation) fluoride (sodium) [PreviDent] 1.1 % Gel 1 applic DENTAL BID Saline Nasal 0.65 % Aerosol,[place] 2 spray INTRANASAL Q1H PRN (Reason: NASAL DRYNESS) omega-3 fatty acids 300 mg Capsule 600 mg PO DAILY glimepiride 1 mg tablet 1 mg PO QAM Rx Instructions: ONE TABLET BY MOUTH BEFORE BREAKFAST metronidazole 0.75 % cream 1 applic topical BID cyclosporine [Restasis] 0.05 % dropperette 1 drp OPB BID Rx Instructions: 1 DROP EACH EYE TWICE DAILY FOR CHRONIC DRY EYE Discontinued nitrofurantoin macrocrystal 100 mg Capsule 100 mg PO DAILY Rx Instructions: must administer with a meal/food Discharge Orders: Discharge Order (Routine); Ordered 07/15/22 Ordered By: Susanna Chun Admission Data Admit Date/Time: 07/12/22 19:48 Attending Provider: Susanna Chun Admit Provider: Gustavo Garza Primary Care Provider: Cr Cantu Other Providers: Gustavo Garza Coding Level of Care Code D/C DAY MANAGEMENT >30 MINS Diagnoses COVID-19 U07.1 Hypoxia R09.02 Fall W19.XXXA Elevated LFTs R79.89 Diabetes E11.9 Mixed incontinence urge and stress N39.46 Swallowing dysfunction R13.10 Vertigo R42 Hypothyroidism E03.9 Insomnia G47.00 Time Spent (min) 35
== END 2022-07-15 17:28 | disposition home or self-care (01) | DRG 178 ==
LOC: ED 16:23 → 2S 19:48 → SUATTDRO 19:48 → 2S 23:04